=== PATIENT | male | born 1970 | race Caucasian/White ===

== ENCOUNTER 2018-02-09 08:55 | Emergency (ER) | payer BC ==
[2018-02-09] MEDS ORDERED: DIAZEPAM 5 MG TABLET ONE (10:29)
[2018-02-09] MEDS ORDERED: DEXAMETHASONE 10 MG/ML VIAL ONE (10:29)
[2018-02-09] MEDS ORDERED: KETOROLAC 30 MG/ML INJ ONE (10:30)
[2018-02-09] MEDS ORDERED: NA CHLORIDE 0.9% 1,000 ML ONE (10:30)
[2018-02-09] MEDS ORDERED: ONDANSETRON 4 MG/2 ML VIAL ONE (10:30)
[2018-02-09] MEDS ORDERED: MORPHINE 4 MG/ML SYR ONE ×2 (10:30→11:26)
[2018-02-09 10:44] LABS: Absolute Lymphocytes (CBC) 1.6 K/uL (0.7-4.9); Absolute Monocytes 0.5 K/uL (0.1-1.3); Absolute Neutrophil 4.2 K/uL (1.8-8.0); Basophils % 0.4 % (0-1.3); Eosinophils % 4.3 % (0-4.4); Hematocrit 48.3 % (39.6-49.0); Lymphocytes % 24.7 % (15.3-44.8); MCH 29.8 pg (27.0-35.0); MCV 87.2 fL (80-100); MPV 8.9 fL (7.6-11.3); Monocytes % 7.3 % (3.3-12.3); RBC Red Blood Cell Count 5.54 M/uL (4.33-5.43)
[2018-02-09 10:55] LABS: BUN Blood Urea Nitrogen 14 mg/dL (7-18); Bicarbonate 28 mmol/L (21-32); Glucose Level 82 mg/dL (74-106); Potassium 4.2 mmol/L (3.5-5.1); Sodium Level 141 mmol/L (136-145)
[2018-02-09 11:39] LABS: Urine Blood NEGATIVE (NEG); Urine Glucose NEGATIVE (NEG); Urine Protein NEGATIVE (NEG); Urine Specific Gravity >1.030 (1.005-1.030); Urine pH 5.5 (5.0-7.0)
--- NOTE | 2018-02-09 11:52 | RAD REPORT ---
EXAM DESCRIPTION: CTSpine Lumbar Wo Con02/09/2018 11:30 am CLINICAL HISTORY: Back injury with back pain and radiculopathy status post fall from stairs COMPARISON: None TECHNIQUE: Computed axial tomography lumbar spine was obtained with coronal and sagittal reconstruct ion. All CT scans are performed using dose optimization technique as appropriate and may include automated exposure control or mA/KV adjustment according to patient size. FINDINGS: No fracture is seen. No dislocation is noted. A small right paracentral disc herniation L5-S1 is suspected Slight posterior subluxation of L5 on S1 is seen. IMPRESSION: Negative for a lumbar fracture. Small right paracentral disc herniation L5-S1 is suspected If the patient continues to have clinical symptoms to suggest spinal canal pathology then MRI would b e recommended
--- NOTE | 2018-02-09 12:11 | ER ---
Nurse's Notes [facility] Name: Gael Vela Age: 47 yrs Sex: Male : 1970 Arrival Date: 02/09/2018 Time: 08:59 Bed 8 Private MD: Harlan Berger T Diagnosis: Low back pain-paracentral disc herniation L5-S1;Fall (on) (from) other stairs and steps Presentation: 02/09 09:03 Presenting complaint: Patient states: "I tripped and fell down a flight of stairs aa5 yesterday". pt c/o lower back pain. Pt denies head injury, denies LOC. Pt ambulatory with steady gait noted. 09:03 Transition of care: patient was not received from another setting of care. Onset of aa5 symptoms was February 2018. Risk Assessment: Do you want to hurt yourself or someone else? Patient reports no desire to harm self or others. Initial Sepsis Screen: Does the patient meet any 2 criteria? No. Patient's initial sepsis screen is negative. Does the patient have a suspected source of infection? No. Patient's initial sepsis screen is negative. Care prior to arrival: None. 09:03 Method Of Arrival: Ambulatory aa5 09:03 Acuity: RENEA 4 aa5 Historical: - Allergies: 09:05 No Known Allergies; aa5 - PMHx: 09:05 Hypertension; Acid Reflux; Headaches; aa5 - PSHx: 09:05 Cholecystectomy; aa5 - Immunization history:: Adult Immunizations unknown. - Social history:: Smoking status: Patient/guardian denies using tobacco. - Ebola Screening: : No symptoms or risks identified at this time. - Family history:: not pertinent. Screenin:05 Abuse screen: Denies threats or abuse. Nutritional screening: No deficits noted. aa5 Tuberculosis screening: No symptoms or risk factors identified. Fall Risk None identified. Assessment: 09:05 General: Appears uncomfortable, Behavior is calm, cooperative. Pain: Complains of pain aa5 in lumbar area Pain does not radiate. Pain currently is 4 out of 10 on a pain scale. at worst was 10 out of 10 on a pain scale. Quality of pain is described as sharp, Pain began 1 day ago. Is continuous, Alleviated by rest, Aggravated by increased activity, repositioning, Noted to be resistant to movement. Neuro: Level of Consciousness is awake, alert, obeys commands, Oriented to person, place, time, situation. Cardiovascular: Heart tones S1 S2 present Rhythm is regular. Respiratory: Airway is patent Respiratory effort is even, unlabored, Respiratory pattern is regular, symmetrical. GI: No signs and/or symptoms were reported involving the gastrointestinal system. : No signs and/or symptoms were reported regarding the genitourinary system. EENT: No signs and/or symptoms were reported regarding the EENT system. Derm: Skin is pink, warm \\T\\ dry. Musculoskeletal: Range of motion: intact in all extremities. 10:26 Reassessment: Patient and/or family updated on plan of care and expected duration. Pain aa5 level reassessed. Patient is alert, oriented x 3, equal unlabored respirations, skin warm/dry/pink. 11:10 Reassessment: Patient and/or family updated on plan of care and expected duration. Pain aa5 level reassessed. Patient is alert, oriented x 3, equal unlabored respirations, skin warm/dry/pink. Patient states symptoms have not improved. MD notified of pt's unchanged pain level. Pt rates pain a 4/10 on a pain scale and 10/10 with any movement. . 11:22 Reassessment: Patient is alert, oriented x 3, equal unlabored respirations, skin aa5 warm/dry/pink. Pt transported to CT scan . 11:45 Reassessment: Patient and/or family updated on plan of care and expected duration. Pain aa5 level reassessed. Patient is alert, oriented x 3, equal unlabored respirations, skin warm/dry/pink. Patient states feeling better. Patient states symptoms have improved. Pt reports pain 0/10 on a pain scale at this time. Pt reports "it's still hurts when I move but not as bad" . 12:30 Reassessment: Patient is alert, oriented x 3, equal unlabored respirations, skin aa5 warm/dry/pink. Vital Signs: 09:05 BP 120 / 85; Pulse 69; Resp 18 S; Temp 98.2(O); Pulse Ox 97% on R/A; Weight 126.1 kg aa5 (R); Height 6 ft. 4 in. (193.04 cm) (R); Pain 4/10; 10:26 BP 120 / 94; Pulse 74; Resp 16 S; Pulse Ox 96% on R/A; Pain 4/10; aa5 10:53 BP 124 / 85; Pulse 72; Resp 16 S; Pulse Ox 97% on R/A; aa5 11:45 BP 121 / 80; Pulse 72; Resp 16 S; Pulse Ox 96% on R/A; aa5 12:20 BP 120 / 79; Pulse 67; Resp 18 S; Temp 98.0(O); Pulse Ox 96% on R/A; aa5 09:05 Body Mass Index 33.84 (126.10 kg, 193.04 cm) aa5 ED Course: 08:59 Patient arrived in ED. mr 08:59 Harlan Berger MD is Private Physician. mr 09:05 Arm band placed on Patient placed in an exam room, on a stretcher. aa5 09:05 Patient has correct armband on for positive identification. Bed in low position. Side aa5 rails up X 1. Adult w/ patient. 09:07 Marianna Becerra, MERT is Primary Nurse. aa5 09:07 Bryant Deras MD is Attending Physician. matthew 09:09 Triage completed. aa5 10:15 Inserted saline lock: 20 gauge in right antecubital area, using aseptic technique. ag Blood collected. 10:20 Initial lab(s) drawn, by ED staff, sent to lab. Inserted saline lock: 20 gauge in right aa5 antecubital area, using aseptic technique. IV inserted by CHRISTINE Gunderson. 11:29 CT Lumbar Spine Wo Con In Process Unspecified. EDMS 11:29 CT completed. Patient moved to CT via wheelchair. Patient moved back from CT. cw1 12:10 Harlan Breger MD is Referral Physician. matthew 12:10 Pavan Edwards MD is Referral Physician. matthew 12:30 No provider procedures requiring assistance completed. IV discontinued, intact, aa5 bleeding controlled, No redness/swelling at site. Pressure dressing applied. Administered Medications: 10:26 Drug: NS 0.9% 1000 ml Route: IV; Rate: 1 bolus; Site: right antecubital; aa5 11:40 Follow up: IV Status: Completed infusion aa5 10:26 Drug: TORadol 30 mg Route: IVP; Site: right antecubital; aa5 10:35 Follow up: Response: No adverse reaction aa5 10:26 Drug: Zofran 4 mg Route: IVP; Site: right antecubital; aa5 10:35 Follow up: Response: No adverse reaction aa5 10:26 Drug: Decadron - Dexamethasone 10 mg Route: IVP; Site: right antecubital; aa5 10:35 Follow up: Response: No adverse reaction aa5 10:30 Drug: morphine 4 mg Route: IVP; Site: right antecubital; aa5 10:35 Follow up: Response: No adverse reaction aa5 10:30 Drug: Valium 5 mg Route: PO; aa5 11:20 Follow up: Response: No adverse reaction aa5 11:20 Drug: morphine 4 mg Route: IVP; Site: right antecubital; aa5 11:25 Follow up: Response: No adverse reaction aa5 Outcome: 12:10 Discharge ordered by . matthew 12:30 Discharged to home ambulatory, with significant other. aa5 12:30 Condition: improved 12:30 Discharge instructions given to patient, significant other, Instructed on discharge instructions, follow up and referral plans. medication usage, Demonstrated understanding of instructions, follow-up care, medications, Prescriptions given X 4. 12:35 Patient left the ED. aa5 Signatures: Dispatcher [employer] EDBryant Christensen MD MD cha Rivera, Maria mr Calderon, Audri, RN RN [email or web address] Isabel Da Silva cwAmanda Foster
--- NOTE | 2018-02-09 12:11 | EDPHYS ---
Physician Documentation [facility] Name: Gael Vela Age: 47 yrs Sex: Male : 1970 Arrival Date: 02/09/2018 Time: 08:59 Bed 8 Private MD: Harlan Berger T ED Physician Bryant Deras HPI: 02/09 10:08 This 47 yrs old Male presents to ER via Ambulatory with complaints of Back matthew Pain. 10:08 The patient presents with pain that is acute, and decreased range of motion, and an matthew injury. The symptoms are located in the low back, lumbar area. Onset: The symptoms/episode began/occurred last night. The pain does not radiate. Associated signs and symptoms: The patient has no apparent associated signs or symptoms. The problem was sustained during a fall, fall 13 steps. Modifying factors: The patient symptoms are alleviated by nothing, remaining still, specific position, the patient symptoms are aggravated by any movement, bending. Severity of symptoms: At their worst the symptoms were moderate, in the emergency department the symptoms are unchanged. The patient has not experienced similar symptoms in the past. Historical: - Allergies: 09:05 No Known Allergies; aa5 - PMHx: 09:05 Hypertension; Acid Reflux; Headaches; aa5 - PSHx: 09:05 Cholecystectomy; aa5 - Immunization history:: Adult Immunizations unknown. - Social history:: Smoking status: Patient/guardian denies using tobacco. - Ebola Screening: : No symptoms or risks identified at this time. - Family history:: not pertinent. ROS: 10:08 Constitutional: Negative for fever, chills, and weight loss, Eyes: Negative for injury, matthew pain, redness, and discharge, ENT: Negative for injury, pain, and discharge, Neck: Negative for injury, pain, and swelling, Cardiovascular: Negative for chest pain, palpitations, and edema, Respiratory: Negative for shortness of breath, cough, wheezing, and pleuritic chest pain, Abdomen/GI: Negative for abdominal pain, nausea, vomiting, diarrhea, and constipation, : Negative for injury, bleeding, discharge, and swelling, MS/Extremity: Negative for injury and deformity, Skin: Negative for injury, rash, and discoloration, Neuro: Negative for headache, weakness, numbness, tingling, and seizure, Psych: Negative for depression, anxiety, suicide ideation, homicidal ideation, and hallucinations, Allergy/Immunology: Negative for hives, rash, and allergies, Endocrine: Negative for neck swelling, polydipsia, polyuria, polyphagia, and marked weight changes, Hematologic/Lymphatic: Negative for swollen nodes, abnormal bleeding, and unusual bruising. 10:08 Back: Positive for decreased range of motion, pain at rest, pain with movement, of the lumbar area and sacrum. Exam: 10:08 Constitutional: This is a well developed, well nourished patient who is awake, alert, matthew and in no acute distress. Head/Face: Normocephalic, atraumatic. Eyes: Pupils equal round and reactive to light, extra-ocular motions intact. Lids and lashes normal. Conjunctiva and sclera are non-icteric and not injected. Cornea within normal limits. Periorbital areas with no swelling, redness, or edema. ENT: Nares patent. No nasal discharge, no septal abnormalities noted. Tympanic membranes are normal and external auditory canals are clear. Oropharynx with no redness, swelling, or masses, exudates, or evidence of obstruction, uvula midline. Mucous membranes moist. Neck: Trachea midline, no thyromegaly or masses palpated, and no cervical lymphadenopathy. Supple, full range of motion without nuchal rigidity, or vertebral point tenderness. No Meningismus. Chest/axilla: Normal chest wall appearance and motion. Nontender with no deformity. No lesions are appreciated. Cardiovascular: Regular rate and rhythm with a normal S1 and S2. No gallops, murmurs, or rubs. Normal PMI, no JVD. No pulse deficits. Respiratory: Lungs have equal breath sounds bilaterally, clear to auscultation and percussion. No rales, rhonchi or wheezes noted. No increased work of breathing, no retractions or nasal flaring. Abdomen/GI: Soft, non-tender, with normal bowel sounds. No distension or tympany. No guarding or rebound. No evidence of tenderness throughout. Male : Normal genitalia with no discharge or lesions. Skin: Warm, dry with normal turgor. Normal color with no rashes, no lesions, and no evidence of cellulitis. MS/ Extremity: Pulses equal, no cyanosis. Neurovascular intact. Full, normal range of motion. Neuro: Awake and alert, GCS 15, oriented to person, place, time, and situation. Cranial nerves II-XII grossly intact. Motor strength 5/5 in all extremities. Sensory grossly intact. Cerebellar exam normal. Normal gait. Psych: Awake, alert, with orientation to person, place and time. Behavior, mood, and affect are within normal limits. 10:08 Back: pain, that is moderate, ROM is painful, normal spinal alignment noted, CVA tenderness, is absent, vertebral tenderness, is appreciated at L1, L2, L3, L4, L5 and sacrum, muscle spasm, is appreciated in the left low back, left mid back, right mid back and right low back. Vital Signs: 09:05 BP 120 / 85; Pulse 69; Resp 18 S; Temp 98.2(O); Pulse Ox 97% on R/A; Weight 126.1 kg aa5 (R); Height 6 ft. 4 in. (193.04 cm) (R); Pain 4/10; 10:26 BP 120 / 94; Pulse 74; Resp 16 S; Pulse Ox 96% on R/A; Pain 4/10; aa5 10:53 BP 124 / 85; Pulse 72; Resp 16 S; Pulse Ox 97% on R/A; aa5 11:45 BP 121 / 80; Pulse 72; Resp 16 S; Pulse Ox 96% on R/A; aa5 12:20 BP 120 / 79; Pulse 67; Resp 18 S; Temp 98.0(O); Pulse Ox 96% on R/A; aa5 09:05 Body Mass Index 33.84 (126.10 kg, 193.04 cm) aa5 MDM: 09:07 Patient medically screened. [facility] 10:12 Data reviewed: vital signs, nurses notes, radiologic studies, CT scan. [facility] 02/09 10:08 Order name: CBC with Diff; Complete Time: 11:11 [facility] 02/09 10:08 Order name: Chem 7; Complete Time: 11:11 [facility] 02/09 11:11 Order name: CT Lumbar Spine Wo Con [facility] 02/09 11:19 Order name: Urine Dipstick--Ancillary (enter results) 02/09 10:08 Order name: Urine Dipstick-Ancillary (obtain specimen); Complete Time: 10:46 [facility] Administered Medications: 10:26 Drug: NS 0.9% 1000 ml Route: IV; Rate: 1 bolus; Site: right antecubital; aa5 11:40 Follow up: IV Status: Completed infusion aa5 10:26 Drug: TORadol 30 mg Route: IVP; Site: right antecubital; aa5 10:35 Follow up: Response: No adverse reaction aa5 10:26 Drug: Zofran 4 mg Route: IVP; Site: right antecubital; aa5 10:35 Follow up: Response: No adverse reaction aa5 10:26 Drug: Decadron - Dexamethasone 10 mg Route: IVP; Site: right antecubital; aa5 10:35 Follow up: Response: No adverse reaction aa5 10:30 Drug: morphine 4 mg Route: IVP; Site: right antecubital; aa5 10:35 Follow up: Response: No adverse reaction aa5 10:30 Drug: Valium 5 mg Route: PO; aa5 11:20 Follow up: Response: No adverse reaction aa5 11:20 Drug: morphine 4 mg Route: IVP; Site: right antecubital; aa5 11:25 Follow up: Response: No adverse reaction aa5 Disposition: 02/09/18 12:10 Discharged to Home. Impression: Low back pain - paracentral disc herniation L5-S1, Fall (on) (from) other stairs and steps. - Condition is Stable. - Discharge Instructions: Back Pain, Adult, Musculoskeletal Pain, Back Injury Prevention, [id number], Back Pain, Adult, [id number], Back Exercises, [id number]-il-Ftgl. - Prescriptions for Robaxin- 750 750 mg Oral tablet - take 2 tablet by ORAL route 3 times per day; 28 tablet. Ibuprofen 600 mg Oral Tablet - take 1 tablet by ORAL route 3 times per day As needed take with food; 30 tablet. Tylenol- Codeine #3 300-30 mg Oral Tablet - take 2 tablet by ORAL route every 6 hours As needed; 30 tablet. Medrol (Lio) 4 mg Oral Tablets, Dose Pack - take 1 tablet by ORAL route as directed - follow package instructions; 1 packet. - Work release form, Medication Reconciliation Form, Thank You Letter, Antibiotic Education, Prescription Opioid Use form. - Follow up: Harlan Berger; When: 2 - 3 days; Reason: Recheck today's complaints, Continuance of care, Re-evaluation by your physician. Follow up: Pavan Edwards; When: 2 - 3 days; Reason: Recheck today's complaints, Re-evaluation by your physician. - Problem is new. - Symptoms have improved. Signatures: Dispatcher [employer] EDBryant Christensen MD MD cha Calderon, Audri, RN RN aa5 Corrections: (The following items were deleted from the chart) 12:35 12:10 02/09/2018 12:10 Discharged to Home. Impression: Low back pain - paracentral disc aa5 herniation L5-S1; Fall (on) (from) other stairs and steps. Condition is Stable. Discharge Instructions: Back Pain, Adult, Musculoskeletal Pain, Back Injury Prevention, [id number], Back Pain, Adult, Mwpq-lf-Dgsc, Back Exercises, Rldb-aa-Miee. Prescriptions for Robaxin-750 750 mg Oral tablet - take 2 tablet by ORAL route 3 times per day; 28 tablet, Ibuprofen 600 mg Oral Tablet - take 1 tablet by ORAL route 3 times per day As needed take with food; 30 tablet, Tylenol-Codeine #3 300-30 mg Oral Tablet - take 2 tablet by ORAL route every 6 hours As needed; 30 tablet, Medrol (Lio) 4 mg Oral Tablets, Dose Pack - take 1 tablet by ORAL route as directed - follow package instructions; 1 packet. and Forms are Medication Reconciliation Form, Thank You Letter, Antibiotic Education, Prescription Opioid Use. Follow up: Harlan Berger; When: 2 - 3 days; Reason: Recheck today's complaints, Continuance of care, Re-evaluation by your physician. Follow up: Pavan Edwards; When: 2 - 3 days; Reason: Recheck today's complaints, Re-evaluation by your physician. Problem is new. Symptoms have improved. matthew
[2018-02-09 12:41] VITALS: TEMP 98.2
[2018-02-09 12:44] VITALS: BP 124/85; O2SAT 97
== END 2018-02-09 12:35 | disposition home or self-care (01) ==
LOC: ER 08:55
DX: M51.27 Other intervertebral disc displacement, lumbosacral region (principal); W10.9XXA Fall (on) (from) unspecified stairs and steps, initial encounter; Y93.9 Activity, unspecified; Y92.9 Unspecified place or not applicable; I10 Essential (primary) hypertension; K21.9 Gastro-esophageal reflux disease without esophagitis
CPT/HCPCS: 36415; 72131; 80048; 81003; 85025; 96361; 96374; 96375; 99284; J1100; J2405; J7030

== ENCOUNTER 2018-09-21 17:25 | Emergency (ER) | payer BC ==
--- NOTE | 2018-09-21 18:12 | RAD REPORT ---
EXAM DESCRIPTION: RAD - Wrist Left 3 View - 09/21/2018 6:00 pm CLINICAL HISTORY: Left wrist pain status post injury FINDINGS: No fracture or dislocation is seen. No bone or joint abnormality displayed
--- NOTE | 2018-09-21 20:01 | EDPHYS ---
Physician Documentation [facility] Name: Gael Vela Age: 48 yrs Sex: Male : 1970 Arrival Date: 09/21/2018 Time: 17:25 Bed 19 Private MD: ED Physician Froilan Kendrick HPI: 09/22 03:26 This 48 yrs old Male presents to ER via Ambulatory with complaints of Arm snw Injury. 03:26 The patient or guardian complains of contusion, pain, that is acute. The complaints snw affect the right wrist. Context: The problem was sustained at home, resulted from a crush injury, by a heavy object. Onset: The symptoms/episode began/occurred suddenly, and became persistent. Treatment prior to arrival includes: no previous treatment. Associated signs and symptoms: The patient has no apparent associated signs or symptoms. Severity of symptoms: At their worst the symptoms were mild. The patient has not experienced similar symptoms in the past. It is unknown whether or not the patient has recently seen a physician. Historical: - Allergies: 09/21 17:45 No Known Allergies; sg - PMHx: 17:41 acid reflux; borderline HTN; Headaches; Hypertension; sg - PSHx: 17:41 Cholecystectomy; sg - Immunization history:: Adult Immunizations not up to date. - Social history:: Smoking status: Patient/guardian denies using tobacco. - Ebola Screening: : Patient negative for fever greater than or equal to 101.5 degrees Fahrenheit, and additional compatible Ebola Virus Disease symptoms Patient denies exposure to infectious person Patient denies travel to an Ebola-affected area in the 21 days before illness onset No symptoms or risks identified at this time. ROS: 09/22 03:23 Constitutional: Negative for fever, chills, and weight loss, Eyes: Negative for injury, snw pain, redness, and discharge, ENT: Negative for injury, pain, and discharge, Neck: Negative for injury, pain, and swelling, Cardiovascular: Negative for chest pain, palpitations, and edema, Respiratory: Negative for shortness of breath, cough, wheezing, and pleuritic chest pain, Abdomen/GI: Negative for abdominal pain, nausea, vomiting, diarrhea, and constipation, Back: Negative for injury and pain, : Negative for injury, bleeding, discharge, and swelling, Skin: Negative for injury, rash, and discoloration, Neuro: Negative for headache, weakness, numbness, tingling, and seizure. MS/extremity: Positive for injury or acute deformity, contusion, pain, swelling, of the left wrist. Exam: 03:04 Constitutional: This is a well developed, well nourished patient who is awake, alert, snw and in no acute distress. Head/Face: Normocephalic, atraumatic. Eyes: Pupils equal round and reactive to light, extra-ocular motions intact. Lids and lashes normal. Conjunctiva and sclera are non-icteric and not injected. Cornea within normal limits. Periorbital areas with no swelling, redness, or edema. ENT: Nares patent. No nasal discharge, no septal abnormalities noted. Tympanic membranes are normal and external auditory canals are clear. Oropharynx with no redness, swelling, or masses, exudates, or evidence of obstruction, uvula midline. Mucous membranes moist. Neck: Trachea midline, no thyromegaly or masses palpated, and no cervical lymphadenopathy. Supple, full range of motion without nuchal rigidity, or vertebral point tenderness. No Meningismus. Chest/axilla: Normal chest wall appearance and motion. Nontender with no deformity. No lesions are appreciated. Cardiovascular: Regular rate and rhythm with a normal S1 and S2. No gallops, murmurs, or rubs. Normal PMI, no JVD. No pulse deficits. Respiratory: Lungs have equal breath sounds bilaterally, clear to auscultation and percussion. No rales, rhonchi or wheezes noted. No increased work of breathing, no retractions or nasal flaring. Abdomen/GI: Soft, non-tender, with normal bowel sounds. No distension or tympany. No guarding or rebound. No evidence of tenderness throughout. Back: No spinal tenderness. No costovertebral tenderness. Full range of motion. 03:24 Skin: Warm, dry with normal turgor. Normal color with no rashes, no lesions, and no snw evidence of cellulitis. Neuro: Awake and alert, GCS 15, oriented to person, place, time, and situation. Cranial nerves II-XII grossly intact. Motor strength 5/5 in all extremities. Sensory grossly intact. Cerebellar exam normal. Normal gait. Psych: Awake, alert, with orientation to person, place and time. Behavior, mood, and affect are within normal limits. 03:24 Musculoskeletal/extremity: Extremities: grossly normal except: noted in the left forearm: contusion, tenderness, Circulation is intact in all extremities. Sensation intact. Vital Signs: 09/21 17:45 BP 110 / 85; Pulse 87; Resp 18; Temp 98.2; Pulse Ox 100% on R/A; Pain 10/10; sg 19:19 BP 115 / 81; Pulse 80; Resp 19; Pulse Ox 99% on R/A; Pain 10/10; ed1 MDM: 19:21 Patient medically screened. snw 09/22 03:23 Data reviewed: vital signs, nurses notes. Data interpreted: Pulse oximetry: on room air snw is 99 %. Interpretation: normal. Counseling: I had a detailed discussion with the patient and/or guardian regarding: the historical points, exam findings, and any diagnostic results supporting the discharge/admit diagnosis, radiology results, the need for outpatient follow up, to return to the emergency department if symptoms worsen or persist or if there are any questions or concerns that arise at home. Response to treatment: the patient's symptoms have markedly improved after treatment. Special discussion: Based on the history and exam findings, there is no indication for further emergent testing or inpatient evaluation. I discussed with the patient/guardian the need to see the orthopedic surgeon for further evaluation of the symptoms. 09/21 17:48 Order name: XRAY Wrist LEFT 3 view; Complete Time: 18:28 sg 09/21 19:54 Order name: Volar Wrist Splint; Complete Time: 20:00 ed1 Administered Medications: 09/21 20:10 Not Given (Patient Refused): [place] 5 mg-325 mg 1 tabs PO once ed1 20:11 Drug: Motrin 400 mg Route: PO; ed1 20:11 Follow up: Response: Medication administered at discharge. ed1 Disposition: 09/21/18 20:00 Discharged to Home. Impression: Sprain of carpal joint of left wrist. - Condition is Stable. - Discharge Instructions: RICE for Routine Care of Injuries, Wrist Splint, Wrist Sprain. - Prescriptions for Diclofenac Sodium 75 mg Oral Tablet Sustained Release - take 1 tablet by ORAL route 2 times per day; 30 tablet. - Work release form, Medication Reconciliation Form, Thank You Letter, Antibiotic Education, Prescription Opioid Use form. - Follow up: Emergency Department; When: As needed; Reason: Worsening of condition. Follow up: Private Physician; When: 2 - 3 days; Reason: Recheck today's complaints, Continuance of care, Re-evaluation by your physician. Addendum: 09/24/2018 19:16 Co-signature as Attending Physician, Froilan Kendrick MD. r n Signatures: Dispatcher [employer] EDMS Bradford Lucero RN RN sg Cookie Chan, WHEEL TRUING MACHINE TENDER-C WHEEL TRUING MACHINE TENDER-Csnw Froilan Kendrick MD MD rn [facility] Hospital[facility] RN RN ed1 Corrections: (The following items were deleted from the chart) 09/21 20:13 20:00 09/21/2018 20:00 Discharged to Home. Impression: Sprain of carpal joint of left ed1 wrist. Condition is Stable. Forms are Medication Reconciliation Form, Thank You Letter, Antibiotic Education, Prescription Opioid Use. Follow up: Emergency Department; When: As needed; Reason: Worsening of condition. Follow up: Private Physician; When: 2 - 3 days; Reason: Recheck today's complaints, Continuance of care, Re-evaluation by your physician. snw
--- NOTE | 2018-09-21 20:01 | ER ---
Nurse's Notes [facility] Name: Gael Vela Age: 48 yrs Sex: Male : 1970 Arrival Date: 09/21/2018 Time: 17:25 Bed 19 Private MD: Diagnosis: Sprain of carpal joint of left wrist Presentation: 09/21 17:45 Presenting complaint: Presenting complaint: Patient states: was hitting golf balls in sg the yard yesterday, reports felt something click in the left wrist, painful now, unable to grasp and hold onto an object for very long before the pain causes him to drop the object. 17:46 Transition of care: patient was not received from another setting of care. Onset of sg symptoms was September 21, 2018. Risk Assessment: Do you want to hurt yourself or someone else? Patient reports no desire to harm self or others. Initial Sepsis Screen: Does the patient meet any 2 criteria? No. Patient's initial sepsis screen is negative. Does the patient have a suspected source of infection? No. Patient's initial sepsis screen is negative. Care prior to arrival: None. 17:46 Method Of Arrival: Ambulatory 17:46 Acuity: RENEA 4 sg Historical: - Allergies: 17:45 No Known Allergies; sg - PMHx: 17:41 acid reflux; borderline HTN; Headaches; Hypertension; sg - PSHx: 17:41 Cholecystectomy; sg - Immunization history:: Adult Immunizations not up to date. - Social history:: Smoking status: Patient/guardian denies using tobacco. - Ebola Screening: : Patient negative for fever greater than or equal to 101.5 degrees Fahrenheit, and additional compatible Ebola Virus Disease symptoms Patient denies exposure to infectious person Patient denies travel to an Ebola-affected area in the 21 days before illness onset No symptoms or risks identified at this time. Screenin:19 Abuse screen: Denies threats or abuse. Denies injuries from another. Nutritional ed1 screening: No deficits noted. Tuberculosis screening: No symptoms or risk factors identified. Fall Risk None identified. Assessment: 19:19 General: Appears in no apparent distress. Behavior is calm, cooperative. Pain: ed1 Complains of pain in left wrist Pain does not radiate. Pain currently is 10 out of 10 on a pain scale. Quality of pain is described as aching, Pain began 1 day ago. Is continuous, Aggravated by exercise, increased activity. Neuro: Level of Consciousness is awake, alert, obeys commands, Oriented to person, place, time, situation. Cardiovascular: Denies chest pain, Heart tones S1 S2 present. Respiratory: Airway is patent Respiratory effort is even, unlabored, Respiratory pattern is regular, symmetrical, Breath sounds are clear bilaterally. GI: No signs and/or symptoms were reported involving the gastrointestinal system. : No signs and/or symptoms were reported regarding the genitourinary system. EENT: No signs and/or symptoms were reported regarding the EENT system. Derm: Skin is intact, is healthy with good turgor, Skin is dry, Skin is normal, Skin temperature is warm. Musculoskeletal: Circulation, motion, and sensation intact. Capillary refill < 3 seconds, in bilateral fingers. Range of motion: limited in left wrist. 20:12 Reassessment: Patient appears in no apparent distress at this time. No changes from ed1 previously documented assessment. Patient and/or family updated on plan of care and expected duration. Pain level reassessed. Patient is alert, oriented x 3, equal unlabored respirations, skin warm/dry/pink. Vital Signs: 17:45 BP 110 / 85; Pulse 87; Resp 18; Temp 98.2; Pulse Ox 100% on R/A; Pain 10/10; sg 19:19 BP 115 / 81; Pulse 80; Resp 19; Pulse Ox 99% on R/A; Pain 10/10; ed1 ED Course: 17:25 Patient arrived in ED. as 17:41 Arm band placed on. sg 17:47 Triage completed. sg 17:58 XRAY Wrist LEFT 3 view In Process Unspecified. EDMS 18:03 Cookie Chan FNP-C is PHCP. snw 18:03 Froilan Kendrick MD is Attending Physician. snw 19:12 Nohelia Wren, MERT is Primary Nurse. ed1 19:19 Patient has correct armband on for positive identification. Bed in low position. Call ed1 light in reach. Adult w/ patient. 20:02 Velcro wrist splint applied to left wrist. ed1 20:12 No provider procedures requiring assistance completed. Patient did not have IV access ed1 during this emergency room visit. Administered Medications: 20:10 Not Given (Patient Refused): [place] 5 mg-325 mg 1 tabs PO once ed1 20:11 Drug: Motrin 400 mg Route: PO; ed1 20:11 Follow up: Response: Medication administered at discharge. ed1 Outcome: 20:00 Discharge ordered by . snw 20:12 Discharged to home ambulatory, with significant other. ed1 20:12 Condition: good 20:12 Discharge instructions given to patient, Instructed on discharge instructions, follow up and referral plans. medication usage, Demonstrated understanding of instructions, follow-up care, medications, Prescriptions given X 1. 20:13 Patient left the ED. ed1 Signatures: Dispatcher [employer] EDMS Bradford Lucero RN RN sg Cookie Chan, MEDICAL LOGISTICS SPECIALIST-C MEDICAL LOGISTICS SPECIALIST-Idania Shoemaker Erika RN RN ed1 Corrections: (The following items were deleted from the chart) 17:47 17:45 Presenting complaint: sg sg
[2018-09-21] MEDS ORDERED: HYDROCODONE/APAP 5/325 MG TAB ONE (20:18)
[2018-09-21] MEDS ORDERED: IBUPROFEN 400 MG TAB ONE (20:18)
[2018-09-21 20:25] VITALS: TEMP 98.2
[2018-09-21 20:27] VITALS: BP 115/81; O2SAT 99
== END 2018-09-21 20:13 | disposition home or self-care (01) ==
LOC: ER 17:25
DX: S63.512A Sprain of carpal joint of left wrist, initial encounter (principal); I10 Essential (primary) hypertension; X58.XXXA Exposure to other specified factors, initial encounter; Y93.9 Activity, unspecified; Y92.009 Unspecified place in unspecified non-institutional (private) residence as the place of occurrence of the external cause
CPT/HCPCS: 99284

== ENCOUNTER 2019-07-27 07:04 | Observation (INO) | payer BC ==
[2019-07-27 07:43] LABS: Absolute Lymphocytes (CBC) 1.1 K/uL (0.7-4.9); Basophils % 0.5 % (0-1.3); Lymphocytes % 19.9 % (15.3-44.8); MPV 8.5 fL (7.6-11.3); RBC Red Blood Cell Count 5.73 M/uL (4.33-5.43)
[2019-07-27 07:45] LABS: Protime INR 1.09
--- NOTE | 2019-07-27 07:48 | ER ---
Nurse's Notes [facility] Name: Gael Vela Age: 49 yrs Sex: Male : 1970 Arrival Date: 07/27/2019 Time: 07:07 Bed 2 Private MD: Diagnosis: Chest pain, unspecified;Essential (primary) hypertension;Weakness Presentation: 07/27 07:09 Presenting complaint: Patient states: High blood pressure since yesterday with any ss activity. Chest pain x 2 weeks when coughing, back pain "for a while" and decreased hearing with bloody drainage to R ear since this morning. states, "He also seems to be speaking slower than usual.". Transition of care: patient was not received from another setting of care. Onset of symptoms is unknown. Risk Assessment: Do you want to hurt yourself or someone else? Patient reports no desire to harm self or others. Initial Sepsis Screen: Does the patient meet any 2 criteria? No. Patient's initial sepsis screen is negative. Does the patient have a suspected source of infection? No. Patient's initial sepsis screen is negative. Care prior to arrival: None. 07:09 Method Of Arrival: Ambulatory ss 07:09 Acuity: RENEA 3 ss Historical: - Allergies: 07:27 No Known Allergies; ss - Home Meds: 07:27 Coreg 3.125 mg Oral tab 1 tab 2 times per day [Active]; ss - PMHx: 07:27 acid reflux; borderline HTN; Headaches; Hypertension; ss - PSHx: 07:27 Cholecystectomy; ss - Immunization history:: Adult Immunizations up to date. - Social history:: Smoking status: Patient reports use of chewing tobacco. - Ebola Screening: : Patient denies exposure to infectious person Patient denies travel to an Ebola-affected area in the 21 days before illness onset. - Family history:: not pertinent. Screenin:34 Abuse screen: Denies threats or abuse. Denies injuries from another. Nutritional sg screening: No deficits noted. Tuberculosis screening: No symptoms or risk factors identified. Never had TB. Fall Risk None identified. Assessment: 07:20 General: Appears in no apparent distress. well groomed, well developed, well nourished, sg Behavior is calm, cooperative, appropriate for age. Pain: Complains of pain in chest Quality of pain is described as pressure, Is episodic, lasting a few minutes. Neuro: Level of Consciousness is awake, alert, obeys commands, Oriented to person, place, time, situation, [employer] are equal bilaterally Speech is normal, Facial symmetry appears normal. Cardiovascular: Capillary refill is brisk in bilateral fingers Patient's skin is warm and dry. Chest pain is described as mild, is located in anterior chest wall. Respiratory: Airway is patent Respiratory effort is even, unlabored, Respiratory pattern is regular, symmetrical. GI: No signs and/or symptoms were reported involving the gastrointestinal system. : No signs and/or symptoms were reported regarding the genitourinary system. EENT: No signs and/or symptoms were reported regarding the EENT system. Derm: Skin is pink, warm \\T\\ dry. Musculoskeletal: Circulation, motion, and sensation intact. Range of motion: intact in all extremities, Swelling absent. 07:28 Reassessment: Pt reports that chest pressure occurs/ worsens when he drinks coffee and ss chews tobacco. 08:20 Reassessment: Patient appears in no apparent distress at this time. Patient and/or sg family updated on plan of care and expected duration. Pain level reassessed. Patient is alert, oriented x 3, equal unlabored respirations, skin warm/dry/pink. pt family at bedside. 08:55 Reassessment: Patient appears in no apparent distress at this time. Patient and/or sg family updated on plan of care and expected duration. Pain level reassessed. Patient is alert, oriented x 3, equal unlabored respirations, skin warm/dry/pink. pt denies pain at this time, reports chest pressure that " comes and goes". 11:50 Reassessment: Attempted to call report. sv Vital Signs: 07:27 BP 129 / 91; Pulse 81; Resp 16; Pulse Ox 98% on R/A; Weight 126.1 kg; Height 6 ft. 4 ss in. (193.04 cm); Pain 2/10; 08:21 BP 123 / 96; Pulse 78; Resp 18; Pulse Ox 100% on R/A; sg 09:00 BP 124 / 92; Pulse 70; Resp 19; Pulse Ox 98% ; sv 10:00 BP 132 / 92; Pulse 83; Resp 20; Pulse Ox 97% ; sv 10:34 BP 132 / 95; Pulse 74; Resp 16; Pulse Ox 96% ; sv 10:58 BP 118 / 80; Pulse 74; Resp 19; Pulse Ox 96% ; sv 07:27 Body Mass Index 33.84 (126.10 kg, 193.04 cm) ED Course: 07:07 Patient arrived in ED. cl3 07:11 Bryant Deras MD is Attending Physician. matthew 07:26 Triage completed. ss 07:27 Arm band placed on right wrist. ss 07:32 EKG done, by ED staff, reviewed by Bryant Deras MD. sv 07:33 Patient has correct armband on for positive identification. Placed in gown. Bed in low sv position. Call light in reach. Adult w/ patient. surveillance system monitor on. Pulse ox on. NIBP on. Door closed. Head of bed elevated. 07:41 Pavan Kilpatrick, MERT is Primary Nurse. jb4 07:46 Dimitry Che DO is Hospitalizing Provider. matthew 07:56 Bradford Lucero RN is Primary Nurse. sv 07:56 X-ray(s) taken. sv 07:59 XRAY Chest (1 view) In Process Unspecified. EDMS 08:46 CT Head C Spine In Process Unspecified. EDMS 08:46 CT Aorta for Dissection In Process Unspecified. EDMS 11:13 Awaiting bed assignment. sv 12:03 No provider procedures requiring assistance completed. Patient admitted, IV remains in sg place. intact, No redness/swelling at site. Administered Medications: 07:35 Drug: NS 0.9% 1000 ml Route: IV; Rate: 75 ml/hr; Site: right antecubital; sg 12:00 Follow up: Response: No adverse reaction; IV Status: Infusion continued upon admission sg 09:28 Drug: Aspirin Chewable Tablet 324 mg Route: PO; sg 09:45 Follow up: Response: No adverse reaction sg Outcome: 07:47 Decision to Hospitalize by Provider. matthew 12:02 Admitted to Tele accompanied by tech, family with patient, via wheelchair, room 209, sg with chart, Report called to MERT Beard 12:02 Condition: good 12:02 Instructed on the need for admit, safety practices, Demonstrated understanding of instructions, follow-up care. 12:53 Patient left the ED. Signatures: Dispatcher [employer] Shruthi Roth RN RN Bradford Lucero RN RN sg Anderson, Corey, MD MD cha [facility], Karina, MERT RN ss Pavan Kilpatrick RN RN jb4 Gaurang Harding cl3 Corrections: (The following items were deleted from the chart) 07:30 Initial lab(s) drawn, by me, sent to lab. jb4 4 07:30 Inserted saline lock: 20 gauge in right antecubital area, using aseptic jb4 technique. Blood collected. jb4 07:30 Patient maintains SpO2 saturation greater than 95% on room air. jb4 4 : 07:40 NS 0.9% 1000 ml IV at 75 ml/hr in right antecubital jb4 jb4 10:34 09:00 BP 132 / 92; Pulse 83bpm; Resp 20bpm; Pulse Ox 97%; sv sv
--- NOTE | 2019-07-27 07:48 | EDPHYS ---
Physician Documentation [facility] Name: Gael Vela Age: 49 yrs Sex: Male : 1970 Arrival Date: 07/27/2019 Time: 07:07 Bed 2 Private MD: ED Physician Bryant Deras HPI: 07/27 07:24 This 49 yrs old Male presents to ER via Unassigned with complaints of Chest matthew Pain, High Blood Pressure. 07:24 The patient or guardian reports chest pain that is located primarily in the substernal matthew area. Onset: 1 day(s) ago. The pain does not radiate. Associated signs and symptoms: The patient has no apparent associated signs or symptoms. The chest pain is described as a pressure. Modifying factors: The symptoms are alleviated by nothing. the symptoms are aggravated by nothing. Severity of pain: At its worst the pain was moderate in the emergency department the pain is unchanged. The patient has experienced similar episodes in the past, multiple times. Historical: - Allergies: 07:27 No Known Allergies; ss - Home Meds: 07:27 Coreg 3.125 mg Oral tab 1 tab 2 times per day [Active]; ss - PMHx: 07:27 acid reflux; borderline HTN; Headaches; Hypertension; ss - PSHx: 07:27 Cholecystectomy; ss - Immunization history:: Adult Immunizations up to date. - Social history:: Smoking status: Patient reports use of chewing tobacco. - Ebola Screening: : Patient denies exposure to infectious person Patient denies travel to an Ebola-affected area in the 21 days before illness onset. - Family history:: not pertinent. ROS: 07:24 Constitutional: Negative for fever, chills, and weight loss, Eyes: Negative for injury, matthew pain, redness, and discharge, ENT: Negative for injury, pain, and discharge, Neck: Negative for injury, pain, and swelling, Respiratory: Negative for shortness of breath, cough, wheezing, and pleuritic chest pain, Abdomen/GI: Negative for abdominal pain, nausea, vomiting, diarrhea, and constipation, Back: Negative for injury and pain, : Negative for injury, bleeding, discharge, and swelling, MS/Extremity: Negative for injury and deformity, Skin: Negative for injury, rash, and discoloration, Neuro: Negative for headache, weakness, numbness, tingling, and seizure, Psych: Negative for depression, anxiety, suicide ideation, homicidal ideation, and hallucinations, Allergy/Immunology: Negative for hives, rash, and allergies, Endocrine: Negative for neck swelling, polydipsia, polyuria, polyphagia, and marked weight changes, Hematologic/Lymphatic: Negative for swollen nodes, abnormal bleeding, and unusual bruising. 07:24 Cardiovascular: Positive for chest pain. Exam: 07:24 Constitutional: This is a well developed, well nourished patient who is awake, alert, matthew and in no acute distress. Head/Face: Normocephalic, atraumatic. Eyes: Pupils equal round and reactive to light, extra-ocular motions intact. Lids and lashes normal. Conjunctiva and sclera are non-icteric and not injected. Cornea within normal limits. Periorbital areas with no swelling, redness, or edema. ENT: Nares patent. No nasal discharge, no septal abnormalities noted. Tympanic membranes are normal and external auditory canals are clear. Oropharynx with no redness, swelling, or masses, exudates, or evidence of obstruction, uvula midline. Mucous membranes moist. Neck: Trachea midline, no thyromegaly or masses palpated, and no cervical lymphadenopathy. Supple, full range of motion without nuchal rigidity, or vertebral point tenderness. No Meningismus. Chest/axilla: Normal chest wall appearance and motion. Nontender with no deformity. No lesions are appreciated. Cardiovascular: Regular rate and rhythm with a normal S1 and S2. No gallops, murmurs, or rubs. Normal PMI, no JVD. No pulse deficits. Respiratory: Lungs have equal breath sounds bilaterally, clear to auscultation and percussion. No rales, rhonchi or wheezes noted. No increased work of breathing, no retractions or nasal flaring. Abdomen/GI: Soft, non-tender, with normal bowel sounds. No distension or tympany. No guarding or rebound. No evidence of tenderness throughout. Back: No spinal tenderness. No costovertebral tenderness. Full range of motion. Skin: Warm, dry with normal turgor. Normal color with no rashes, no lesions, and no evidence of cellulitis. MS/ Extremity: Pulses equal, no cyanosis. Neurovascular intact. Full, normal range of motion. Neuro: Awake and alert, GCS 15, oriented to person, place, time, and situation. Cranial nerves II-XII grossly intact. Motor strength 5/5 in all extremities. Sensory grossly intact. Cerebellar exam normal. Normal gait. Psych: Awake, alert, with orientation to person, place and time. Behavior, mood, and affect are within normal limits. Vital Signs: 07:27 BP 129 / 91; Pulse 81; Resp 16; Pulse Ox 98% on R/A; Weight 126.1 kg; Height 6 ft. 4 ss in. (193.04 cm); Pain 2/10; 08:21 BP 123 / 96; Pulse 78; Resp 18; Pulse Ox 100% on R/A; sg 09:00 BP 124 / 92; Pulse 70; Resp 19; Pulse Ox 98% ; sv 10:00 BP 132 / 92; Pulse 83; Resp 20; Pulse Ox 97% ; sv 10:34 BP 132 / 95; Pulse 74; Resp 16; Pulse Ox 96% ; sv 10:58 BP 118 / 80; Pulse 74; Resp 19; Pulse Ox 96% ; sv 07:27 Body Mass Index 33.84 (126.10 kg, 193.04 cm) ss MDM: 07:11 Patient medically screened. [facility] 07:28 Data reviewed: vital signs, nurses notes, lab test result(s), EKG, radiologic studies, [facility] CT scan, plain films. 07/27 07:12 Order name: Basic Metabolic Panel [facility] 07/27 07:12 Order name: CBC with Diff [facility] 07/27 07:12 Order name: LFT's [facility] 07/27 07:12 Order name: Magnesium [facility] 07/27 07:12 Order name: NT PRO-BNP; Complete Time: 08:20 [facility] 07/27 07:12 Order name: PT-INR; Complete Time: 08:20 [facility] 07/27 07:12 Order name: Troponin (emerg Dept Use Only); Complete Time: 08:20 [facility] 07/27 07:12 Order name: Lipase; Complete Time: 08:20 [facility] 07/27 07:13 Order name: Basic Metabolic Panel; Complete Time: 08:20 [facility] 07/27 07:13 Order name: CBC with Automated Diff; Complete Time: 08:20 [facility] 07/27 07:13 Order name: Liver (Hepatic) Function; Complete Time: 08:20 [facility] 07/27 07:13 Order name: Magnesium; Complete Time: 08:20 [facility] 07/27 09:31 Order name: Urine Dipstick--Ancillary (enter results) 07/27 09:59 Order name: Urine Dipstick-Ancillary [facility] 07/27 07:12 Order name: XRAY Chest (1 view); Complete Time: 08:40 [facility] 07/27 07:12 Order name: EKG; Complete Time: 07:13 [facility] 07/27 07:12 Order name: Cardiac monitoring; Complete Time: 07:19 [facility] 07/27 07:12 Order name: EKG - Nurse/Tech; Complete Time: 07:31 [facility] 07/27 07:12 Order name: IV Saline Lock; Complete Time: 07: [facility] 07/27 07:12 Order name: Labs collected and sent; Complete Time: : [facility] 07/27 07:12 Order name: O2 Per Protocol; Complete Time: 07:19 [facility] 07/27 07:12 Order name: O2 Sat Monitoring; Complete Time: 07:19 [facility] 07/27 07:12 Order name: Urine Dipstick-Ancillary (obtain specimen); Complete Time: 08:56 [facility] 07/27 07:30 Order name: CT Head C Spine; Complete Time: 09:20 [facility] 07/27 07:30 Order name: CT Aorta for Dissection; Complete Time: 09:27 [facility] Administered Medications: 07:35 Drug: NS 0.9% 1000 ml Route: IV; Rate: 75 ml/hr; Site: right antecubital; 12:00 Follow up: Response: No adverse reaction; IV Status: Infusion continued upon admission sg 09:28 Drug: Aspirin Chewable Tablet 324 mg Route: PO; sg 09:45 Follow up: Response: No adverse reaction Disposition: 07/27/19 07:47 Hospitalization ordered by Dimitry Che for Observation. Preliminary diagnosis are Chest pain, unspecified, Essential (primary) hypertension, Weakness. - Bed requested for Telemetry/MedSurg (observation). - Status is Observation. - Condition is Fair. - Problem is new. - Symptoms have improved. UTI on Admission? No Signatures: Dispatcher [employer] [facility] Rosa M Boyce, Magy Duncan RN RN Bradford Lucero RN RN Bryant Deras MD MD cha Smirch, Shelby, RN RN Pavan Kilpatrick RN RN [id number] Corrections: (The following items were deleted from the chart) 11: 07:47 Hospitalization Ordered by Dimitry Che DO for Observation. Preliminary dw diagnosis is Chest pain, unspecified; Essential (primary) hypertension; Weakness. Bed requested for Telemetry/MedSurg (observation). Status is Observation. Condition is Fair. Problem is new. Symptoms have improved. UTI on Admission? No. matthew 12:53 11:27 07/27/2019 07:47 Hospitalization Ordered by Dimitry Che DO for Observation. Preliminary diagnosis is Chest pain, unspecified; Essential (primary) hypertension; Weakness. Bed requested for Telemetry/MedSurg (observation). Status is Observation. Condition is Fair. Problem is new. Symptoms have improved. UTI on Admission? No. dw
[2019-07-27 08:01] LABS: ALT/SGPT 54 U/L (12-78); AST/SGOT 20 U/L (15-37); Albumin 3.6 g/dL (3.4-5.0); Alkaline Phosphatase 101 U/L (45-117); BUN Blood Urea Nitrogen 9 mg/dL (7-18); Bicarbonate 29 mmol/L (21-32); Bilirubin Direct < 0.1 mg/dL (0-0.2); Bilirubin Total 0.4 mg/dL (0.2-1.0); Glucose Level 104 mg/dL (74-106); Lipase 74 U/L (73-393); NT PRO-BNP 8 pg/mL (<125); Protein, Total 8.2 g/dL (6.4-8.2); Sodium Level 141 mmol/L (136-145); Troponin (Emerg Dept Use Only) < 0.02 ng/mL (0.0-0.045)
--- NOTE | 2019-07-27 08:28 | RAD REPORT ---
EXAM DESCRIPTION: RAD - Chest Single View - 07/27/2019 8:01 am CLINICAL HISTORY: CHEST PAIN Chest pain. COMPARISON: Abdomen Acute Series dated 03/07/2017; Chest Single View dated 03/06/2017; Chest Single Vi ew dated 11/12/2016; CHEST SINGLE VIEW dated 02/23/2013 FINDINGS: Portable technique limits examination quality. The lungs are grossly clear. The heart is normal in size. No displaced fractures. IMPRESSION: No acute intrathoracic process suspected.
--- NOTE | 2019-07-27 08:57 | RAD REPORT ---
EXAM DESCRIPTION: CT - CTHCSPWOC - 07/27/2019 8:47 am CLINICAL HISTORY: Trauma, head and neck injury. PAIN COMPARISON: No comparisons TECHNIQUE: Axial 5 mm thick images of the head were obtained. Axial 2 mm thick images of the cervical spine were obtained with sagittal and coronal reconstruction images generated and reviewed. All CT scans are performed using dose optimization technique as appropriate and may include automated exposure control or mA/KV adjustment according to patient size. FINDINGS: CT HEAD WITHOUT CONTRAST: No acute hemorrhage, hydrocephalus or extra-axial collection is identified.No areas of brain edema or midline shift. Trace fluid is seen in the inferior right mastoid air cell. Mild mucoperiosteal thickening of the fro ntoethmoidal sinuses.The calvarium is intact. CT CERVICAL SPINE WITHOUT CONTRAST: No fracture or subluxation.Mild lower cervical spondylosis.No prevertebral soft tissues swelling is i dentified. IMPRESSION: No acute intracranial or cervical spine findings.
--- NOTE | 2019-07-27 09:23 | RAD REPORT ---
EXAM DESCRIPTION: CT - Angio Aorta For Dissection - 07/27/2019 8:47 am CLINICAL HISTORY: Chest pain radiating to the back. Chest pain;Dyspnea;PE;Dissection COMPARISON: Abdomen Pelvis W Contrast dated 03/04/2017 TECHNIQUE: CT angiography of the aorta was performed with MIPs. All CT scans are performed using dose optimization technique as appropriate and may include automated exposure control or mA/KV adjustment according to patient size. FINDINGS: A left aortic arch is present with normal branching pattern of the great vessels.No acute aortic finding is seen such as aneurysm, penetrating ulcer or dissection. The celiac axis, SMA, DAILY and renal arteries are patent. Heart size is mildly enlarged. No evidence of pulmonary embolism. The lungs are clear. Small hiatal hernia. Cholecystectomy clips. The liver demonstrates no focal mass or biliary dilatation.The spleen, pancreas, adrenal glands and l eft kidney are within normal limits for arterial phase imaging.3.3 cm intermediate density mass is pr esent posterior cortex right kidney. This appears enlarged since comparative study which time measure d 17-18 mm. No bowel obstruction, free fluid or abscess.Normal appendix.No pathologic enlarged lymphadenopathy id entified. No fracture or worrisome bone lesion seen.Bilateral fat containing inguinal hernias, slightly greater on the right. IMPRESSION: No acute aortic finding is demonstrated.No pulmonary embolism. 3.3 cm intermediate density lesion posterior right renal cortex demonstrating interval growth since 2 017. This is favored to represent a complicated cyst or hemorrhagic cyst. Recommend followup nonemerg ent MRI renal protocol for further assessment.
[2019-07-27] MEDS ORDERED: ASPIRIN 81 MG CHEWABLE TABLET ONE (09:29)
[2019-07-27 09:58] LABS: Urine Blood NEGATIVE (NEG); Urine Glucose NEGATIVE (NEG); Urine Specific Gravity 1.015 (1.005-1.030)
[2019-07-27 09:59] LABS: Urine Protein NEGATIVE (NEG)
--- NOTE | 2019-07-27 11:22 | P.HP ---
Certification for Inpatient Patient admitted to: Observation With expected LOS: <2 Midnights Patient will require the following post-hospital care: None Practitioner: I am a practitioner with admitting privileges, knowledge of patient current condition, hospital course, and medical plan of care. Services: Services provided to patient in accordance with Admission requirements found in Title 42 Section 412.3 of the Code of Federal Regulations Patient History Date of Service: 07/27/19 Primary Care Provider: Dr. Berger; Cardiology-Dr. Waite Reason for admission: Chest pain History of Present Illness: 49-year-old male with history of hypertension, tobacco abuse presented with chest pain. Patient reported chest pain to the substernal region over the last week. Pain comes and goes. No significant shortness of breath noted with this. He has reported some mild headaches and lightheadedness. Patient reports history of migraines. He came to the ER today DN due to chest pain. In the ER patient evaluated. Initial cardiac enzymes unremarkable. CBC and BMP unremarkable. CT head negative. Chest x-ray negative. CT chest shows no pulmonary embolism or aneurysm. A 3.3 cm density to the posterior right kidney noted. There has been some interval change since 2017. Likely complicated cyst versus hemorrhagic cyst. Patient was admitted for further evaluation. I saw the patient ER, pain had resolved. Patient reports some indigestion. Patient is taking ibuprofen due to headaches. Patient has seen Cardiology in the past. He had a stress test done about 3 years ago. He was unremarkable at that time. Allergies No Known Allergies Allergy (Unverified 03/06/17 20:42) Home medications list reviewed: Yes Home Medications: levoFLOXacin [Levaquin] 500 mg PO DAILY #10 tab 03/09/17 metroNIDAZOLE [Flagyl*] 500 mg PO Q6HR #30 03/09/17 - Past Medical/Surgical History Diabetic: No -: Hypertension -: Obstructive sleep apnea -: GERD with hiatal hernia -: Tobacco abuse-dipping -: 3.3 cm posterior right kidney density -: Cholecystectomy Psychosocial/ Personal History: The patient is of 6 years, he has 3 children. He works as a physician general practice. - Family History Father -: Heart disease, Hypertension, Diabetes, Cancer, Other (see notes) Mother -: Diabetes, Cancer Sister -: Other (see notes) Notes: thyroid issues - Social History Smoking Status: Light Tobacco smoker (1-9 cigarettes/day) Counseled patient to stop smoking for: less than 10 minutes Smoking therapy provided: Yes Patient receptive to therapy: Yes Alcohol use: No CD- Drugs: No Caffeine use: Yes Place of Residence: Home Review of Systems General: As per HPI Eyes: Unremarkable ENT: Unremarkable Respiratory: Unremarkable Cardiovascular: Chest Pain, Light Headedness, As per HPI Gastrointestinal: Unremarkable Genitourinary: Unremarkable Musculoskeletal: Unremarkable Integumentary: Unremarkable Neurological: Unremarkable Lymphatics: Unremarkable Physical Examination - Physical Exam General: Alert, In no apparent distress, Oriented x3, Cooperative HEENT: Atraumatic, Mucous membr. moist/pink Neck: Supple Respiratory: Clear to auscultation bilaterally, Normal air movement Cardiovascular: Normal pulses, Regular rate/rhythm Gastrointestinal: Normal bowel sounds, Soft and benign, Non-distended, No tenderness, No masses, No rebound, No guarding Musculoskeletal: No erythema, No tenderness, No warmth Integumentary: No tenderness/swelling, No erythema, No warmth, No cyanosis Neurological: Normal speech, Normal strength at 5/5 x4 extr, Normal tone, Normal affect - Studies Laboratory Data (last 24 hrs) 07/27/19 07:30: PT 12.8 H, INR 1.09 07/27/19 07:30: WBC 5.8, Hgb 16.7, Hct 50.0 H, Plt Count 233 07/27/19 07:30: Sodium 141, Potassium 4.0, BUN 9, Creatinine 1.15, Glucose 104, Magnesium 2.0, Total Bilirubin 0.4, AST 20, ALT 54, Alkaline Phosphatase 101, Lipase 74 Assessment and Plan - Plan Impression: Chest pain likely noncardiac GERD with higher hernia Hypertension Tobacco use 3.3 cm right posterior kidney density likely complicated cyst/hemorrhagic cyst increase in size since 2017 Plan: Chest pain likely noncardiac: Patient admitted for further evaluation and treatment. Will continue to monitor telemetry and cardiac enzymes. Will order echocardiogram and cardiac stress test to further evaluate. Will consult cardiology. Anticipate possible discharge today if workup unremarkable. Await further recommendations from cardiology. GERD with higher hernia: Will start Protonix. Will teach on current diet. Hypertension: Blood pressure elevated upon arrival. Will increase carvedilol to 6.25 mg twice daily. Tobacco use: Tobacco cessation addressed in detail. 3.3 cm right posterior kidney density likely complicated cyst/hemorrhagic cyst increase in size since 2017: Will recommend MRI of kidney as an outpatient to further evaluate. Discharge Plan: Home Plan to discharge in: 24 Hours - Advance Directives Does patient have a Living Will: No Does patient have a Durable POA for Healthcare: No Time Spent Managing Pts Care (In Minutes): 55
[2019-07-27] MEDS ORDERED: ACETAMINOPHEN 500 MG TAB PO PRN (12:28)
[2019-07-27] MEDS ORDERED: TRAMADOL HCL 50 MG TAB PO PRN (12:28)
[2019-07-27] MEDS ORDERED: NITROGLYCERIN 0.4 MG/TAB SL PRN (12:28)
[2019-07-27] MEDS ORDERED: ONDANSETRON 4 MG/2 ML VIAL IV PRN (12:28)
[2019-07-27 12:35] VITALS: BMI 32.5
[2019-07-27 13:10] LABS: CKMB Creatine Kinase MB < 1.0 ng/mL (0.3-3.6); Creatine Phosphokinase 77 U/L (39-308); HDL Cholesterol 34 mg/dL (40-60); LDL Cholesterol, Calculated 66 (<130); Troponin I < 0.02 ng/mL (0.0-0.045)
[2019-07-27 14:08] VITALS: O2SAT 94
[2019-07-27 14:12] VITALS: BP 124/76; TEMP 97.3
--- NOTE | 2019-07-27 14:50 | P.DS ---
Admission Date: 07/27/19 Discharge Date: 07/27/19 Primary Care Provider: Dr. Berger; Cardiology-Dr. Waite Disposition: ROUTINE DISCHARGE Discharge Condition: GOOD Reason for Admission: Chest pain Consultations: Cardiology-Dr. Armando Procedures: Ct Head: COMPARISON: No comparisons TECHNIQUE: Axial 5 mm thick images of the head were obtained. Axial 2 mm thick images of the cervical spine were obtained with sagittal and coronal reconstruction images generated and reviewed. All CT scans are performed using dose optimization technique as appropriate and may include automated exposure control or mA/KV adjustment according to patient size. FINDINGS: CT HEAD WITHOUT CONTRAST: No acute hemorrhage, hydrocephalus or extra-axial collection is identified.No areas of brain edema or midline shift. Trace fluid is seen in the inferior right mastoid air cell. Mild mucoperiosteal thickening of the frontoethmoidal sinuses.The calvarium is intact. CT CERVICAL SPINE WITHOUT CONTRAST: No fracture or subluxation.Mild lower cervical spondylosis.No prevertebral soft tissues swelling is identified. IMPRESSION: No acute intracranial or cervical spine findings. Ct Chest: COMPARISON: Abdomen Pelvis W Contrast dated 03/04/2017 TECHNIQUE: CT angiography of the aorta was performed with MIPs. All CT scans are performed using dose optimization technique as appropriate and may include automated exposure control or mA/KV adjustment according to patient size. FINDINGS: A left aortic arch is present with normal branching pattern of the great vessels.No acute aortic finding is seen such as aneurysm, penetrating ulcer or dissection. The celiac axis, SMA, DAILY and renal arteries are patent. Heart size is mildly enlarged. No evidence of pulmonary embolism. The lungs are clear. Small hiatal hernia. Cholecystectomy clips. The liver demonstrates no focal mass or biliary dilatation.The spleen, pancreas , adrenal glands and left kidney are within normal limits for arterial phase imaging.3.3 cm intermediate density mass is present posterior cortex right kidney. This appears enlarged since comparative study which time measured 17-18 mm. No bowel obstruction, free fluid or abscess.Normal appendix.No pathologic enlarged lymphadenopathy identified. No fracture or worrisome bone lesion seen.Bilateral fat containing inguinal hernias, slightly greater on the right. IMPRESSION: No acute aortic finding is demonstrated.No pulmonary embolism. 3.3 cm intermediate density lesion posterior right renal cortex demonstrating interval growth since 2017. This is favored to represent a complicated cyst or hemorrhagic cyst. Recommend followup nonemergent MRI renal protocol for further assessment. ECHO: Obtained Medical Problem List: Chest pain likely noncardiac GERD with hiatal hernia Hypertension Tobacco use 3.3 cm right posterior kidney density likely complicated cyst/hemorrhagic cyst increased in size since 2017 Brief History of Present Illness: 49-year-old male with history of hypertension, tobacco abuse presented with chest pain. Patient reported chest pain to the substernal region over the last week. Pain comes and goes. No significant shortness of breath noted with this. He has reported some mild headaches and lightheadedness. Patient reports history of migraines. He came to the ER today DN due to chest pain. In the ER patient evaluated. Initial cardiac enzymes unremarkable. CBC and BMP unremarkable. CT head negative. Chest x-ray negative. CT chest shows no pulmonary embolism or aneurysm. A 3.3 cm density to the posterior right kidney noted. There has been some interval change since 2017. Likely complicated cyst versus hemorrhagic cyst. Patient was admitted for further evaluation. I saw the patient ER, pain had resolved. Patient reports some indigestion. Patient is taking ibuprofen due to headaches. Patient has seen Cardiology in the past. He had a stress test done about 3 years ago. He was unremarkable at that time. Hospital Course: Patient presented with chest pain. Patient was evaluated in the emergency room and admitted for observation. No significant changes on telemetry. Cardiac enzymes unremarkable. Echocardiogram obtained. Case discussed with cardiology. Patient can be discharged home. Cardiology recommends follow up in his office for outpatient cardiac stress test. For now patient may continue with 81 mg daily of aspirin. Patient with hypertension. Blood pressure was elevated upon arrival. Medication was adjusted. At discharge he will continue with carvedilol 6.25 mg 1 pill twice daily. Recommend to maintain blood pressures less 140/90. Further adjustment can be done by his PCP. Tobacco cessation addressed in detail. Patient with GERD and hiatal hernia. CT scan showed hiatal hernia. Will recommend Protonix 40 mg 1 pill once daily. Recommend follow up with GI as an outpatient to further evaluate and address. CT scan of the chest did reveal a 3.3 cm right posterior kidney density likely complicated cyst versus hemorrhagic cyst. This has increased in size since 2017. Will recommend follow up with his PCP to obtain MRI of the kidney to further evaluate. Urinalysis unremarkable. Vital Signs/Physical Exam: Temp Pulse Resp BP Pulse Ox 97.3 F 69 20 124/76 96 07/27/19 12:40 07/27/19 12:40 07/27/19 12:40 07/27/19 12:40 07/27/19 12:40 General: Alert, In no apparent distress, Oriented x3, Cooperative HEENT: Atraumatic Neck: Supple Respiratory: Clear to auscultation bilaterally, Normal air movement Cardiovascular: Normal pulses, Regular rate/rhythm Gastrointestinal: Normal bowel sounds, Soft and benign, Non-distended, No tenderness, No masses, No rebound, No guarding Musculoskeletal: No erythema, No tenderness, No warmth Integumentary: No tenderness/swelling, No erythema, No warmth, No cyanosis Neurological: Normal speech, Normal strength at 5/5 x4 extr, Normal tone, Normal affect Laboratory Data at Discharge: WBC 5.8 K/uL (4.3-10.9) 07/27/19 07:30 Hgb 16.7 g/dL (13.6-17.9) 07/27/19 07:30 Hct 50.0 % (39.6-49.0) H 07/27/19 07:30 Plt Count 233 K/uL (152-406) 07/27/19 07:30 PT 12.8 SECONDS (9.5-12.5) H 07/27/19 07:30 INR 1.09 07/27/19 07:30 Sodium 141 mmol/L (136-145) 07/27/19 07:30 Potassium 4.0 mmol/L (3.5-5.1) 07/27/19 07:30 BUN 9 mg/dL (7-18) 07/27/19 07:30 Creatinine 1.15 mg/dL (0.55-1.3) 07/27/19 07:30 Glucose 104 mg/dL (74-106) 07/27/19 07:30 Magnesium 2.0 mg/dL (1.8-2.4) 07/27/19 07:30 Total Bilirubin 0.4 mg/dL (0.2-1.0) 07/27/19 07:30 AST 20 U/L (15-37) 07/27/19 07:30 ALT 54 U/L (12-78) 07/27/19 07:30 Alkaline Phosphatase 101 U/L (45-117) 07/27/19 07:30 Troponin I < 0.02 ng/mL (0.0-0.045) 07/27/19 12:50 Triglycerides 55 mg/dL (<150) 07/27/19 12:50 Cholesterol 111 mg/dL (<200) 07/27/19 12:50 HDL Cholesterol 34 mg/dL (40-60) L 07/27/19 12:50 Cholesterol/HDL Ratio 3.26 07/27/19 12:50 Lipase 74 U/L (73-393) 07/27/19 07:30 Home Medications: Aspirin [Aspirin EC 81 MG] 81 mg PO DAILY #90 tablet. 07/27/19 Pantoprazole [Protonix Tab*] 40 mg PO DAILYAC #30 tab 07/27/19 carvediloL [Carvedilol] 3.125 mg PO BID 07/27/19 carvediloL [Coreg*] 6.25 mg PO BID #60 tab 07/27/19 New Medications: Aspirin [Aspirin EC 81 MG] 81 mg PO DAILY #90 tablet. carvediloL [Coreg*] 6.25 mg PO BID #60 tab Pantoprazole [Protonix Tab*] 40 mg PO DAILYAC #30 tab Patient Discharge Instructions: 1. Recommend follow up with his PCP within 1 week to follow up this hospitalization. 2. Patient presented with chest pain. Patient was evaluated in the emergency room and admitted for observation. No significant changes on telemetry. Cardiac enzymes unremarkable. Echocardiogram obtained. Case discussed with cardiology. Patient can be discharged home. Cardiology recommends follow up in his office for outpatient cardiac stress test. For now patient may continue with 81 mg daily of aspirin. 3. Patient with hypertension. Blood pressure was elevated upon arrival. Medication was adjusted. At discharge he will continue with carvedilol 6.25 mg 1 pill twice daily. Recommend to maintain blood pressures less 140/90. Further adjustment can be done by his PCP. 4. Tobacco cessation addressed in detail. 5. Patient with GERD and hiatal hernia. CT scan showed hiatal hernia. Will recommend Protonix 40 mg 1 pill once daily. Recommend follow up with GI as an outpatient to further evaluate and address. 6. CT scan of the chest did reveal a 3.3 cm right posterior kidney density likely complicated cyst versus hemorrhagic cyst. This has increased in size since 2017. Will recommend follow up with his PCP to obtain MRI of the kidney to further evaluate. Urinalysis unremarkable. Diet: AHA Activity: Ad yogesh Time spent managing pt's care (in minutes): 55
--- NOTE | 2019-07-27 14:53 | EKG ---
Test Date: 2019-07-27 Test Time: 07:30:31 Spring Assembler: DASHA MEASUREMENT RESULTS: Intervals: Rate: 84 DE: 156 QRSD: 104 QT: 358 QTc: 423 Skipwith: P: 27 DE: 156 QRS: 0 T: 19 INTERPRETIVE STATEMENTS: Normal sinus rhythm Inferior infarct, age undetermined Abnormal ECG Compared to ECG 03/06/2017 19:42:33 Sinus tachycardia no longer present Myocardial infarct finding still present Electronically Signed On 07-27-19 14:51:43 FARM ADVISER by Dillon Armando
[2019-07-27] MEDS ORDERED: INFLUENZA VACCINE (for 3y+) 0.5 ML DOSE IMVAC ONE (15:00)
[2019-07-27] MEDS ORDERED: carvediloL 6.25 MG TAB PO SCH (21:00)
[2019-07-27] MEDS ORDERED: ATORVASTATIN 10 MG TAB PO SCH (21:00)
[2019-07-28] MEDS ORDERED: PANTOPRAZOLE 40MG TABLET PO SCH (06:30)
[2019-07-28] MEDS ORDERED: ASPIRIN EC 81 MG TAB PO SCH (09:00)
[2019-07-28] MEDS ORDERED: ENOXAPARIN 40 MG/0.4 ML SQ SCH (09:00)
--- NOTE | 2019-07-28 09:55 | ECHO ---
HEIGHT: 6 ft 4 in WEIGHT: 267 lb 0 oz DATE OF STUDY: 07/27/[address]: Dimitry Che DO 2-DIMENSIONAL: YES M.MODE: YES DOPPLER: YES COLOR FLOW: YES TDS: NO PORTABLE: NO DEFINITY: NO BUBBLE STUDY: NO DIAGNOSIS: CHEST PAIN CARDIAC HISTORY: CATHERIZATION: NO SURGERY: NO PROSTHETIC VALVE: NO PACEMAKER: NO MEASUREMENTS (cm) DIASTOLIC (NORMALS) SYSTOLIC (NORMALS) IVSd 1.2 (0.6-1.2) LA Diam 4.2 (1.9-4.0) LVEF 59% LVIDd 5.5 (3.5-5.7) LVIDs 3.8 (2.0-3.5) %FS 32% LVPWd 1.1 (0.6-1.2) Ao Diam 4.2 (2.0-3.7) 2 DIMENSIONAL ASSESSMENT: RIGHT ATRIUM: NORMAL LEFT ATRIUM: NORMAL RIGHT VENTRICLE: NORMAL LEFT VENTRICLE: NORMAL TRICUSPID VALVE: NOMRAL MITRAL VALVE: NORMAL PULMONIC VALVE: NORMAL AORTIC VALVE: NORMAL PERICARDIAL EFFUSION: NONE AORTIC ROOT: NORMAL LEFT VENTRICULAR WALL MOTION: NORMAL. DOPPLER/COLOR FLOW: NORMAL. COMMENTS: NORMAL 2D ECHO WITH DOPPLER. TECHNOLOGIST: LELE SALTER
== END 2019-07-27 16:50 | disposition home or self-care (01) ==
LOC: ER 07:04 → ERHOLD 09:15 → 2ND 11:42
PROVIDERS: ADMIT Family Medicine; ATTEND Family Medicine
DX: R07.9 Chest pain, unspecified (principal); I10 Essential (primary) hypertension; F17.210 Nicotine dependence, cigarettes, uncomplicated; G47.33 Obstructive sleep apnea (adult) (pediatric); K21.9 Gastro-esophageal reflux disease without esophagitis; K44.9 Diaphragmatic hernia without obstruction or gangrene; N28.1 Cyst of kidney, acquired
CPT/HCPCS: 96361; 93005; 93306; 85025; 80048; 36415; 83735; 82550; 85610; 80061; 80076; 81003; 84484 ×2; 82553; 83690; 83880; 70450; 72125; 71275; 74175; 71045; 96360; 99285; Q9967; G0378 ×2

== ENCOUNTER 2021-01-02 06:41 | Emergency (ER) | payer BC ==
[2021-01-02 07:36] LABS: Basophils % 0.3 % (0-1.3); Hematocrit 47.7 % (39.6-49.0); Lymphocytes % 12.8 % (15.3-44.8); MPV 8.7 fL (7.6-11.3); RBC Red Blood Cell Count 5.47 M/uL (4.33-5.43)
[2021-01-02] MEDS ORDERED: NA CHLORIDE 0.9% 2,000 ML ONE (07:40)
[2021-01-02] MEDS ORDERED: ONDANSETRON 4 MG/2 ML VIAL ONE (07:40)
[2021-01-02 07:53] LABS: ALT/SGPT 83 U/L (12-78); AST/SGOT 34 U/L (15-37); Albumin 3.8 g/dL (3.4-5.0); Alkaline Phosphatase 104 U/L (45-117); BUN Blood Urea Nitrogen 14 mg/dL (7-18); Bicarbonate 25 mmol/L (21-32); Bilirubin Direct 0.1 mg/dL (0-0.2); Bilirubin Total 0.5 mg/dL (0.2-1.0); Glucose Level 101 mg/dL (74-106); Lipase 33 U/L (73-393); Potassium 3.6 mmol/L (3.5-5.1); Protein, Total 8.1 g/dL (6.4-8.2); Sodium Level 143 mmol/L (136-145)
--- NOTE | 2021-01-02 08:31 | RAD REPORT ---
EXAM DESCRIPTION: CTAbdomen Pelvis W Contrast - 01/02/2021 7:43 am CLINICAL HISTORY: Abdominal pain. diarrhea, vomiting x 1 week COMPARISON: Abdomen Pelvis W Contrast dated 03/04/2017; Angio Aorta For Dissection dated 07/27/2019 TECHNIQUE: Biphasic CT imaging of the abdomen and pelvis was performed with 100 ml non-ionic IV cont rast. All CT scans are performed using dose optimization technique as appropriate and may include automated exposure control or mA/KV adjustment according to patient size. FINDINGS: The lung bases are clear. Mild fatty liver is present. Small low-density lesion in the right lobe of the liver is present measu ring 10 mm, likely a small cyst. Cholecystectomy clips. No intra or extrahepatic biliary tree dilatat ion. The spleen, pancreas, adrenal glands and left kidney are within normal limits. 5.1 x 4.5 cm cystic le mele is present right kidney appearing enlarged since comparative study which time it measured 3.3 cm . Within the rectum there is a possible 19 mm polypoid lesion seen. No bowel obstruction, free air, free fluid or abscess. The appendix is normal. No evidence of signi ficant lymphadenopathy. No lytic or blastic bone lesion. Small bilateral fat containing inguinal hernias. IMPRESSION: Interval enlargement of complex cystic mass involving the posterior aspect of the right kidney. Recommend follow-up nonemergent MRI of the abdomen without and with contrast for further leena acterization of this mass. Complex cystic lesion or cystic neoplasia are possibilities. 19 mm polypoid lesion is seen in the rectum, direct visualization with colonoscopy would be recommend ed.
[2021-01-02] MEDS ORDERED: DIPHENOX/ATROP SULF 1 TAB PO ONE (09:05)
--- NOTE | 2021-01-02 09:44 | ER ---
Nurse's Notes [facility] Name: Gael Vela Age: 50 yrs Sex: Male : 1970 Arrival Date: 01/02/2021 Time: 06:44 Bed 14 Private MD: Diagnosis: Diarrhea, unspecified;Dehydration Presentation: 01/02 07:15 Chief complaint: Patient states: "I have been having diarrhea since last Saturday. I am jd3 feeling dehydrated now and I started vomiting this morning.". Coronavirus screen: At this time, the client does not indicate any symptoms associated with coronavirus-19. Ebola Screen: Patient negative for fever greater than or equal to 101.5 degrees Fahrenheit, and additional compatible Ebola Virus Disease symptoms. Initial Sepsis Screen: Does the patient meet any 2 criteria? No. Patient's initial sepsis screen is negative. Does the patient have a suspected source of infection? No. Patient's initial sepsis screen is negative. Risk Assessment: Do you want to hurt yourself or someone else? Patient reports no desire to harm self or others. Onset of symptoms was December 27, 2020. 07:15 Method Of Arrival: Ambulatory jd3 07:15 Acuity: RENEA 3 jd3 Historical: - Allergies: 07:18 No Known Allergies; jd3 - Home Meds: 07:18 Protonix Oral [Active]; carvedilol oral oral [Active]; levothyroxine oral [Active]; jd3 - PMHx: 07:18 acid reflux; Headaches; Hypertension; Thyroid problem; jd3 - PSHx: 07:18 Cholecystectomy; jd3 - Immunization history:: Adult Immunizations up to date, Client reports receiving the 2nd dose of the Covid vaccine. - Social history:: Smoking status: Patient reports use of chewing tobacco. - Family history:: not pertinent. - Hospitalizations: : No recent hospitalization is reported. Screenin:25 Abuse screen: Denies threats or abuse. Denies injuries from another. Nutritional jl7 screening: No deficits noted. Tuberculosis screening: No symptoms or risk factors identified. Fall Risk IV access (20 points). Total Foley Fall Scale indicates No Risk (0-24 pts). Assessment: 07:25 Reassessment: pt to CT. jl7 07:25 General: Appears in no apparent distress. uncomfortable, Behavior is calm, cooperative. jl7 Pain: Complains of pain in abdomen diffusely Pain currently is 5 out of 10 on a pain scale. Neuro: Level of Consciousness is awake, alert, obeys commands, Oriented to person, place, time, situation. Cardiovascular: Patient's skin is warm and dry. Respiratory: Airway is patent Respiratory effort is even, unlabored, Respiratory pattern is regular, symmetrical. GI: Abdomen is round non-distended, Stools are reported to be diarrhea. Reports bloating, diarrhea, nausea, vomiting. Derm: Skin is pink, warm \\T\\ dry. 08:12 Reassessment: Patient appears in no apparent distress at this time. Patient and/or jl7 family updated on plan of care and expected duration. Pain level reassessed. Patient is alert, oriented x 3, equal unlabored respirations, skin warm/dry/pink. Denies nausea. 09:00 Reassessment: Patient appears in no apparent distress at this time. No changes from jl7 previously documented assessment. Patient and/or family updated on plan of care and expected duration. Pain level reassessed. Patient is alert, oriented x 3, equal unlabored respirations, skin warm/dry/pink. Vital Signs: 07:18 BP 137 / 94; Pulse 79; Resp 16 S; Temp 98.0(TE); Pulse Ox 95% on R/A; Weight 127.01 kg jd3 (R); Height 6 ft. 4 in. (193.04 cm) (R); Pain 5/10; 08:12 BP 120 / 79; Pulse 77; Resp 15; Pulse Ox 95% ; jl7 08:48 BP 120 / 83; Pulse 77; Resp 15; Pulse Ox 97% ; jl7 07:18 Body Mass Index 34.08 (127.01 kg, 193.04 cm) jd3 ED Course: 06:44 Patient arrived in ED. bp1 07:05 Froilan Kendrick MD is Attending Physician. rn 07:09 Charli Smart RN is Primary Nurse. jl7 07:16 Triage completed. jd3 07:18 Arm band placed on. jd3 07:25 Patient has correct armband on for positive identification. Bed in low position. Call [facility] light in reach. Side rails up X 1. Pulse ox on. NIBP on. 07:25 Initial lab(s) drawn, by me, sent to lab. Inserted saline lock: 20 gauge in right jl7 antecubital area, using aseptic technique. Blood collected. 07:43 CT Abd/Pelvis - IV Contrast Only In Process Unspecified. EDMS 09:50 No provider procedures requiring assistance completed. IV discontinued, intact, jl7 bleeding controlled, No redness/swelling at site. Pressure dressing applied. Administered Medications: 07:25 Drug: Zofran (Ondansetron) 4 mg Route: IVP; Site: right antecubital; jl7 08:13 Follow up: Response: No adverse reaction; Nausea is decreased jl7 07:25 Drug: NS 0.9% 1000 ml Route: IV; Rate: 1000 ml; Site: right antecubital; jl7 09:45 Follow up: Response: No adverse reaction; IV Status: Completed infusion; IV Intake: jl7 900ml 07:27 Drug: NS 0.9% 1000 ml Route: IV; Rate: 1000 ml; Site: right antecubital; jl7 08:30 Follow up: IV Status: Completed infusion; IV Intake: 1000ml jl7 08:48 Drug: LoMOTIL (diphenoxylate-atropine) 2 tabs Route: PO; jl7 09:50 Follow up: Response: No adverse reaction jl7 Intake: 08:30 IV: 1000ml; Total: 1000ml. jl7 09:45 IV: 900ml; Total: 1900ml. jl7 Outcome: 09:44 Discharge ordered by . rn 09:50 Discharged to home ambulatory. jl7 09:50 Condition: stable 09:50 Discharge instructions given to patient, family, Instructed on discharge instructions, follow up and referral plans. Demonstrated understanding of instructions, follow-up care. 09:50 Patient left the ED. jl7 Signatures: Dispatcher [employer] EDMS Froilan Kendrick MD MD rn Leal, Jahala RN RN jl7 Clifford Tamayo RN RN Susannah Menezes
--- NOTE | 2021-01-02 09:44 | EDPHYS ---
Physician Documentation [facility] Name: Gael Vela Age: 50 yrs Sex: Male : 1970 Arrival Date: 01/02/2021 Time: 06:44 Bed 14 Private MD: ED Physician Froilan Kendrick HPI: 01/02 07:18 This 50 yrs old Male presents to ER via Ambulatory with complaints of rn Vomiting/Diarrhea. 07:18 The patient presents to the emergency department with nausea, vomiting, diarrhea. rn Onset: The symptoms/episode began/occurred 1 week(s) ago. Possible causes: unknown. The symptoms are aggravated by nothing. The symptoms are alleviated by nothing. Associated signs and symptoms: Pertinent positives: diarrhea, nausea, vomiting, Pertinent negatives: abdominal pain, fever, GI bleeding. Severity of symptoms: At their worst the symptoms were mild in the emergency department the symptoms are unchanged. The patient has not experienced similar symptoms in the past. The patient has not recently seen a physician. Reports 1 week of nausea/vomiting/diarrhea, no fever, grandkids with recent vomiting/diarrhea but they got over it quickly and he hasn't. Reports mainly diarrhea but now with vomiting since yesterday. No blood in emesis or stool. Has happened once before, told was bowel obstruction, but didn't require surgery and got better with fluids, time, and abx. . Historical: - Allergies: 07:18 No Known Allergies; jd3 - Home Meds: 07:18 Protonix Oral [Active]; carvedilol oral oral [Active]; levothyroxine oral [Active]; jd3 - PMHx: 07:18 acid reflux; Headaches; Hypertension; Thyroid problem; jd3 - PSHx: 07:18 Cholecystectomy; jd3 - Immunization history:: Adult Immunizations up to date, Client reports receiving the 2nd dose of the Covid vaccine. - Social history:: Smoking status: Patient reports use of chewing tobacco. - Family history:: not pertinent. - Hospitalizations: : No recent hospitalization is reported. ROS: 07:18 Constitutional: Negative for fever, chills, and weight loss, Eyes: Negative for injury, rn pain, redness, and discharge, Neck: Negative for injury, pain, and swelling, Cardiovascular: Negative for chest pain, palpitations, and edema, Respiratory: Negative for shortness of breath, cough, wheezing, and pleuritic chest pain, Abdomen/GI: Negative for constipation Back: Negative for injury and pain, : Negative for injury, bleeding, discharge, and swelling, MS/Extremity: Negative for injury and deformity, Skin: Negative for injury, rash, and discoloration, Neuro: Negative for headache, numbness, tingling, and seizure. Exam: 07:18 Constitutional: This is a well developed, well nourished patient who is awake, alert, rn and in no acute distress. Head/Face: Normocephalic, atraumatic. ENT: dry MM Cardiovascular: Regular rate and rhythm. No pulse deficits. Respiratory: No increased work of breathing, no retractions or nasal flaring. Abdomen/GI: soft, non-tender, non-distended, no masses Skin: Warm, dry MS/ Extremity: Pulses equal, no cyanosis. Neuro: Awake and alert, GCS 15 Vital Signs: 07:18 BP 137 / 94; Pulse 79; Resp 16 S; Temp 98.0(TE); Pulse Ox 95% on R/A; Weight 127.01 kg jd3 (R); Height 6 ft. 4 in. (193.04 cm) (R); Pain 5/10; 08:12 BP 120 / 79; Pulse 77; Resp 15; Pulse Ox 95% ; jl7 08:48 BP 120 / 83; Pulse 77; Resp 15; Pulse Ox 97% ; jl7 07:18 Body Mass Index 34.08 (127.01 kg, 193.04 cm) jd3 MDM: 07:05 Patient medically screened. rn 09:42 Differential diagnosis: Nonspecific abd pain, viral gastroenteritis, gastroenteritis, rn colitis, diverticulitis. Data reviewed: vital signs, nurses notes, lab test result(s), radiologic studies, CT scan, and as a result, I will discharge patient. Counseling: I had a detailed discussion with the patient and/or guardian regarding: the historical points, exam findings, and any diagnostic results supporting the discharge/admit diagnosis, lab results, radiology results, the need for outpatient follow up, to return to the emergency department if symptoms worsen or persist or if there are any questions or concerns that arise at home. Response to treatment: the patient's symptoms have mildly improved after treatment, and as a result, I will discharge patient. Special discussion: I discussed with the patient/guardian in detail that at this point there is no indication for admission to the hospital. It is understood, however, that if the symptoms persist or worsen the patient needs to return immediately for re-evaluation. ED course: No acute findings on blood or CT abdomen, most likely viral illness, but will need to f/u for increasing right renal mass as well as moderate sized poly in rectum. Discussed this with patient. Told this to patient and understands. . 01/02 07:15 Order name: Basic Metabolic Panel; Complete Time: 07:57 rn 01/02 07:15 Order name: CBC with Diff; Complete Time: 07:57 rn 01/02 07:15 Order name: Hepatic Function; Complete Time: :57 rn 01/02 07:15 Order name: Lipase; Complete Time: 07:57 rn 01/02 07:15 Order name: CT Abd/Pelvis - IV Contrast Only; Complete Time: 08:33 rn 01/02 08:36 Order name: CREATININE WHOLE BLOOD; Complete Time: 09:09 EDMD 01/02 07:15 Order name: IV Saline Lock; Complete Time: 07:33 rn 01/02 07:15 Order name: Labs collected and sent; Complete Time: 07:33 rn Administered Medications: 07:25 Drug: Zofran (Ondansetron) 4 mg Route: IVP; Site: right antecubital; jl7 08:13 Follow up: Response: No adverse reaction; Nausea is decreased jl7 07:25 Drug: NS 0.9% 1000 ml Route: IV; Rate: 1000 ml; Site: right antecubital; jl7 09:45 Follow up: Response: No adverse reaction; IV Status: Completed infusion; IV Intake: jl7 900ml 07:27 Drug: NS 0.9% 1000 ml Route: IV; Rate: 1000 ml; Site: right antecubital; jl7 08:30 Follow up: IV Status: Completed infusion; IV Intake: 1000ml jl7 08:48 Drug: LoMOTIL (diphenoxylate-atropine) 2 tabs Route: PO; jl7 09:50 Follow up: Response: No adverse reaction jl7 Disposition: 01/02/21 09:44 Discharged to Home. Impression: Diarrhea, unspecified, Dehydration. - Condition is Stable. - Discharge Instructions: Dehydration, Adult, Diarrhea, Adult. - Medication Reconciliation Form, Thank You Letter, Antibiotic Education, Prescription Opioid Use form. - Follow up: Private Physician; When: As needed; Reason: Recheck today's complaints, Re-evaluation by your physician. - Problem is new. - Symptoms have improved. Signatures: Dispatcher [employer] EDMS Froilan Kendrick MD MD rn Charli Smart RN RN jl7 Clifford Tamayo RN RN jd3 Corrections: (The following items were deleted from the chart) 09:50 09:44 01/02/2021 09:44 Discharged to Home. Impression: Diarrhea, unspecified; jl7 Dehydration. Condition is Stable. Forms are Medication Reconciliation Form, Thank You Letter, Antibiotic Education, Prescription Opioid Use. Follow up: Private Physician; When: As needed; Reason: Recheck today's complaints, Re-evaluation by your physician. Problem is new. Symptoms have improved. rn
[2021-01-02 09:57] VITALS: TEMP 98
[2021-01-02 09:59] VITALS: BP 120/83; O2SAT 97
== END 2021-01-02 09:50 | disposition home or self-care (01) ==
LOC: ER 06:41
DX: E86.0 Dehydration (principal); E07.9 Disorder of thyroid, unspecified; F17.220 Nicotine dependence, chewing tobacco, uncomplicated; I10 Essential (primary) hypertension
CPT/HCPCS: 85025; 80048; 36415; 82565; 80076; 83690; 74177; Q9967; J7030; J2405; 96361; 96374; 99284

== ENCOUNTER 2021-02-28 06:12 | Inpatient (IN) | payer BC ==
[2021-02-24 11:29] LABS: Urine Appearance CLEAR (Clear); Urine Blood NEGATIVE (Negative); Urine Color DK YELLOW (Yellow); Urine Glucose TRACE (Negative); Urine Protein TRACE (Negative); Urine Specific Gravity >=1.030 (1.005-1.030); Urine Urobilinogen 0.2 mg/dL (0.2-1.0); Urine pH 5.5 (5.0-7.0)
[2021-02-24 11:45] LABS: ALT/SGPT 36 U/L (12-78); AST/SGOT 13 U/L (15-37); Albumin 3.5 g/dL (3.4-5.0); Alkaline Phosphatase 102 U/L (45-117); Bilirubin Direct < 0.1 mg/dL (0-0.2); Bilirubin Total 0.3 mg/dL (0.2-1.0); Protein, Total 7.6 g/dL (6.4-8.2)
[2021-02-24 11:55] LABS: Urine Bilirubin NEGATIVE (Negative); Urine Microscopic Reflex ORDER UMIC
[2021-02-24 12:13] LABS: Urine Bacteria 20-50 /HPF (NONE SEEN); Urine RBC <5 /HPF (NONE SEEN)
[2021-02-24 12:14] LABS: Calcium Oxalate Crystals- Ur MODERATE (NONE SEEN); Urine Mucus 2+ /HPF (NONE SEEN)
[2021-02-28] MEDS ORDERED: Ringers Lactate 1,000 ML IV ONE ×3 (07:02→11:15)
[2021-02-28] MEDS ORDERED: CEFAZOLIN/SWI 1gm 1 GM/10 ML SYR ONE ×2 (07:02→07:16)
[2021-02-28] MEDS ORDERED: ACETAMINOPHEN 500 MG TAB PO PRN (07:23)
[2021-02-28] MEDS ORDERED: ONDANSETRON 4 MG/2 ML VIAL IV PRN (07:23)
[2021-02-28] MEDS ORDERED: BUPIVACAINE 0.25% PF 10 ML VIAL ONE (07:35)
[2021-02-28] MEDS ORDERED: dexAMETHasone 10 MG/ML VIAL ONE (07:41)
[2021-02-28] MEDS ORDERED: NS 0.9% VIAL 10 ML ONE ×4 (07:41→11:18)
[2021-02-28] MEDS ORDERED: FENTANYL CITR 250 MCG/5 ML ONE (07:41)
[2021-02-28] MEDS ORDERED: ONDANSETRON 4 MG/2 ML VIAL ONE (07:41)
[2021-02-28] MEDS ORDERED: VECURONIUM 10 MG/VIAL IV ONE ×2 (07:41→08:27)
[2021-02-28] MEDS ORDERED: propofoL 200 MG/20 ML VIAL IV ONE (07:41)
[2021-02-28] MEDS ORDERED: LIDOCAINE 1% MPF 5 ML VIAL ONE (07:41)
[2021-02-28] MEDS ORDERED: MIDAZOLAM HCL 2 MG/2 ML INJ ONE (07:41)
[2021-02-28] MEDS: D5 0.45 NS 1,000 ML IV SCH ×3 (08:00→21:07)
[2021-02-28] MEDS ORDERED: ROCURONIUM 50 MG/5 ML VIAL IV ONE (08:02)
[2021-02-28] MEDS ORDERED: EPHEDRINE SULF 50 MG/ML VIAL ONE (08:49)
[2021-02-28] MEDS ORDERED: GLYCOPYRROLATE 0.2 MG/ML SYR ONE (11:09)
[2021-02-28] MEDS ORDERED: NEOSTIGMINE 1 MG/ML -5 ML ONE (11:15)
[2021-02-28] MEDS ORDERED: MORPHINE 10 MG/ML VIAL ONE (11:15)
[2021-02-28] MEDS ORDERED: HYDROMORPHONE HCL 1 MG/ML INJ ONE ×3 (11:46→13:39)
--- NOTE | 2021-02-28 12:58 | OP ---
Surgeon: KAYLEY ABBASI Preoperative Diagnosis: Right 5 cm complex cystic renal mass. Postoperative Diagnosis: Right 5 cm complex cystic renal mass. Principle Procedure: Right laparoscopic radical nephrectomy. Indication For Procedure: Mr. Vela is a 50-year-old gentleman, who presented to the Urology Clin ic with evidence of an enhancing right renal mass with some cystic components. He underwent MRI eval uation, which confirmed the absence of any macroscopic fat and the presence of the enhancing central components with peripheral rim making it suspicious for renal cell carcinoma. I counseled the patien t that the cystic lesion was at least a Bosniak 3-4 lesion which carried at least a 50%-70% risk of r enal cell carcinoma. He elected to have the entirety of the kidney removed instead of undergoing a p artial nephrectomy because of concerns for recurrence, which I expressed were low regardless. Procedure In Detail: The patient was consented in the preoperative holding area before being transfe rred to the operative suite where general anesthesia was induced. An OG tube was placed for gastric decompression. Ancef 2 g IV antimicrobial prophylaxis was provided, and pneumo boots were provided f or DVT prophylaxis. He was placed in the modified flank position with the right side up and a neuro roll beneath his flank on that side. An axillary roll was placed beneath the axilla and the patient was padded to the table appropriately. A urethral Centeno catheter had been placed earlier by nursing. There was clear yellow urine draining. His abdomen was shaved, prepped using ChloraPrep, and drape d in standard fashion. The case was begun using a Veress needle to gain intraabdominal access and wi th adequate insufflation pressures obtained, his abdomen was adequately distended to 15 mmHg. I then placed a 5 mm trocar in the right upper quadrant near the midline, shifted somewhat laterally becaus e of his habitus. A 12 mm camera port trocar was marked about 3 cm lateral and 2 cm superior to the umbilicus and a 12 mm port was also identified in the right lateral quadrant. Using an optical 5 mm trocar and a 0-degree lens, I gained an access visually into the abdominal cavity via the right upper quadrant midline trocar site. I was able to visualize the entirety of the abdomen, and there were n o significant adhesions. As a result, I placed the other two 12 mm trocars under direct vision into the abdomen. The kidney was then surveyed and the mass was evident causing the kidney to be displace d into the peritoneal surface. I then began using Endo Niki and cautery to divide the line of Told t accessing beneath the peritoneum. LigaSure electrocautery was then used to complete that dissectio n down to the vermiform appendix. This was released away from the tail of Gerota fascia, and I retur carolynn to the superior pole of the kidney where I divided the peritoneal surface going superiorly beneat h the surface of the liver. Of note, a liver retractor 5 mm trocar and locking grasper were used to elevate the lobe of the liver overhanging the kidney. I then visualized the duodenum and kocherized it sharply using Endo Niki and sparing electrocautery. Once the duodenum was out of the way, I was then able to visualize the renal vein, the gonadal vessels, and the IVC. I then elevated the gonada l vessels and visualized the ureter. The ureter was similarly elevated, and the psoas muscle was vis ualized. I then began dividing any loose connective tissue between the posterior surface of the kidn ey and the Gerota fascia until a large gonadal vessel potentially was observed emanating from the garret n renal artery. I was able to dissect the artery superiorly and inferiorly and then used a ABEL endov ascular stapler to ligate and divide the renal artery. Once this was completed, I then continued dis secting to the renal vein where I similarly was able to dissect superiorly and inferiorly around the renal vein before using a second ABEL stapler to ligate and divide the right renal vein. Sparing the adrenal, I then dissected along the superomedial surface of the kidney using a LigaSure electrocauter y to divide the attachments. This was taken superolaterally and posteriorly. I then proceeded to th e tail of Gerota and the ureter which was clipped using metal clips and divided using LigaSure. I th en divided the tail of Gerota and the lateral attachments of the Gerota to the pelvic sidewall comple tely freeing the kidney. Attempts to place the kidney in an EndoCatch bag were thwarted to the massi ve size of the kidney and really its overlying fat. As a result, a locking grasper was placed on the kidney to micah it and I turned my attention to visualizing the point of incision in the lower midlin e. As there were no adhesions in that location, I instilled 0.25% Marcaine in the previously marked lower midline and then incised the lower midline making an approximately 3-4 mm incision. This was d eepened through the subcutaneous tissues and fat using electrocautery. The fascia was then visualize d and divided and the muscle was visualized. I identified the midline and lateralized the muscle div iding the posterior layer of the abdominal wall fascia. Then, the peritoneum was discretely visualiz ed and entered and I was able to grasp the kidney manually. Unfortunately, it was too large to remov e through the fascial incision made at this point; so I had to increase the incision by an additional 2 cm in length. Once this was done, with some difficulty, I was able to finagle the entirety of the kidney out of the incision and visualize it. The mass was visualized below beneath Gerota and was c ompletely intact and non-ruptured. As a result, this was delivered for pathologic analysis. I then irrigated the fascial and subcutaneous tissues with saline and using a #1 looped PDS, I closed the fa scia in a running fashion. Once this was done, we then placed a wet lap into the subcutaneous tissue and re-insufflated his abdomen visualizing it on the inside. The pressure was taken back down to 8 mmHg, and a search for bleeding was undertaken. Suction irrigation was employed to remove any bloody fluid within the right renal fossa, and the staple lines for both the artery and the vein were visua lized and intact with no bleeding. As a result, the pressure was taken back to 15 mmHg and I utilize d a Syd-Cathi device and a #1 PDS suture to close the right lateral quadrant trocar site. I th en used a 0 Vicryl to close the camera port incision site. The 5 mm trocars were then removed from t he right upper midline and the left upper midline liver retractors site under direct vision. There w as no bleeding from either site. I then decompressed his abdomen of carbon dioxide completely and re moved the 12 mm trocars tying down the sutures previously placed via Syd-Cathi closure. With t he sutures tied down, we then copiously irrigated each of the incisions and instilled subcutaneous Ma rcaine again. A 3-0 Vicryl was used to reapproximate the fat and subcutaneous layers of the lower mi dline incision, and 4-0 Monocryl was used to close the skin of all of the trocar sites and the lower midline incision. Dermabond was used to seal the skin, and the case was concluded. The patient was then taken out of the modified flank position, awakened from general anesthesia, transferred to a [facility] etcher, and then transferred to the recovery room in good condition. Complications: None. Disposition: The patient will be admitted for at least the next 23 hours for observation and during this time, his diet will be advanced as tolerated with milk of magnesia and a Dulcolax suppository pr ovided for bowel promotility. Once he is able to pass gas, we will place him on oral narcotics for pain control as necessary, and then he will be eligible for discharge home. PETER/MINERVA Voice ID: [id number] Report ID: [id number]
--- OUTSIDE RECORDS SUMMARY | 2021-02-28 13:42 | XMS REPORT | Continuity of Care Document ---
:1970 Author Organization [facility] t Address [address] [place] [address] [address] [place] [address] Care Team Providers Name Role Phone Collettekaitlin Sharath Attending Clinician Unavailable Physician, Primary or Family Admitting Clinician Unavailabl e Payers Payer Name Policy Type Policy Number Effective Date Expiration Date S ource Problems This patient has no known problems. Allergies, Adverse Reactions, Alerts Allergy Allergy Status Severity Reaction(s) Onset Inactive Treating Comm ents Source Name Type Date Date Clinician No Known DA Active U [facility] Allergie 8-18 Clear s 00:00: [address] Medications This patient has no known medications. Procedures This patient has no known procedures. Encounters Start End Encounter Admission Attending Care Care Encounter Source Date/Time Date/Time Type Type Clinicians Facility Department ID 2021-02-22 Inpatient EL Voloyiannis [facility] DAYS [id number] [facility] 13:30:00 , Loraine [id number] [facility] 2021-02-23 2021-02-23 Outpatient EL Voloyiannis [facility] DAYS [id number] [facility] 05:20:00 05:20:00 , Loraine [id number] [facility] Results Test Description Test Time Test Comments Results Result Comments Source SURGICAL PATH SPECIMENS 2021-02-27 14:48:00 Test Item Value Reference Range Interpretation Comme nts SURGICAL RUN PATH DATE: 02/27/21 [place] - LAB PAGE 1 RUN SPECIMENS TIME: 1448 Specimen Inquiry RUN USER: INTERFACE (test code = S) MARSHALL ENT: VILLEGASASHLEY LOC: [facility] U #: [id number] AGE/SX: 50/M ROOM: RE02/23/21REG DR: Loraine Espinoza : 70 BED : DIS: [place] [facility] [place]: SPEC #: [id number] PASSENGER REPRESENTATIVE: 02/24/21 STATUS: GODWIN REJanneth #: [id number] MARGARITA: - SUBM DR: Loraine Espinoza MD ENTERED: 02/24/21 SP TYPE: AMBRIZ RG SPEC OTHR DR: No Primary or Family PhysicianORDERED: [id number] CODES: [id number] - RECTUM, NOS COPIES TO: No Primary or Family Physician Loraine Espinoza MD [address] [place] [address] [email or web address] PROCEDURES: [id number] (-100) TISSUES: RECTUM, NOS - POLYP FINAL DIAGNOSIS Rectum, polypec gunnar: Tubulovillous adenoma. GROSS AND MICROSCOPIC GROSS EXAMINATION: Received in for radha labeled rectal polyp is a 2.1 x 1.7 x 1 cm lobulated gardner polyp, the base of the polyp excision is inked green. Submitted (A)-(C). MICROSCOPIC EXAMINATION: Sections of the rectal lesion reveal a tubulovillous adenoma. The lesion is pedunculated and is not seen to involve the inked st alk margin. --- Signed Harlan Louie DO 02/27/21 1448 END OF REPORT BASIC METABOLIC [id number] 12:38:00 Test Item Value Reference Range Interpretation Comments SODIUM (test code = NA) 140 mEq/L 134-147 N POTASSIUM (test code = 3.4 mEq/L 3.4-5.0 N K) CHLORIDE (test code = 106 mEq/L 100-108 N CL) CARBON DIOXIDE (test 27 mEq/l 21-33 N code = CO2) ANION GAP (test code = 10 0-20 N GAP) GLUCOSE (test code = 190 mg/dL 70-110 H GLU) BLOOD UREA NITROGEN 9 mg/dL 7-18 N (test code = BUN) GLOMERULAR FILTRATION 89.3 90-95 L Units of measure = RATE (test code = GFR) ml/mi n/1.73 m2 CREATININE (test code = 0.9 mg/dL 0.6-1.3 N CREAT) CALCIUM (test code = 9.0 mg/dL 8.0-10.5 N CA) COVID 19 Asymptomatic IH [id number] 15:53:00 Test Item Value Reference Range Interpretation Comments COVID 19 Asymptomatic Negative Negative A nega tive result is IH AG (test code = presumpti ve and should COVNONPUIAG) be confirmedwit h an FDA authorized mole cular assay, if neces janet forpatient alfonso gement.A positive result does not rule out co-inf ections withother patho gens.This test detects gregg th viable (live) and non-viable,SARS -CoV, and SARS-CoV-2. Sigifredo t performance dep ends on theamount of vi crystal (antigen) in th e sample.This sigifredo t has not been FDA cleare d or approved; the t est hasbeen authori zed by FDA under an Em ergency Use Authorizati on(EUA) for use by labo ratories certified under the CLIA thatmeet the requirements to perform moderate, high or waivedcomplexit y tests. PROTHROMBIN [id number] 15:34:00 Test Item Value Reference Range Interpretation Comments PROTHROMBIN TIME 12.8 SECONDS 9.3-12.9 N PATIENT (test code = PTP) INTERNATIONAL NORMAL 1.2 0.8-1.2 N TARGET RATIO (test code = INR BY IN DICATION INR) Indication INR1. Prophyl axis of venous thrombos is 2.0 - 3. 0 (orthopedic dawson minh), Prophylaxis of venous thrombos is (other than hig h-risk surgery), Evelyn tment of Deep Vein Thrombosis/Pulm onary Embolism, Preve ntion of systemic emb olism - Tissue heart va lves, Acute Myocardia l Infarction (to prevent systemic embo lism), Valvular heart disease, Atri al Fibrillation, Bileaflet mecha nical valve in aortic position.2. Mec hanical prosthetic valv es (high risk), 2.5 - 3.5 Presence of Lupus Anticoagu lant or Antiphospholi pid Antibodies, Pre vention of systemic e mbolism - Acute Myocard ial Infarction (t o prevent recurre nt infarct). THROMBOPLASTIN TIME [id number] 15:34:00 Test Item Value Reference Range Interpretation Comments THROMBOPLASTIN TIME 33.0 Seconds 25.0-39.5 N Ther apeutic PARTIAL (test code = Range: 50.4 - 88.3 PTT) Seconds Effective 10/21/2018 BASIC METABOLIC [id number] 15:30:00 Test Item Value Reference Range Interpretation Comments SODIUM (test code = NA) 142 mEq/L 134-147 N POTASSIUM (test code = 3.9 mEq/L 3.4-5.0 N K) CHLORIDE (test code = 110 mEq/L 100-108 H CL) CARBON DIOXIDE (test 27 mEq/l 21-33 N code = CO2) ANION GAP (test code = 9 0-20 N GAP) GLUCOSE (test code = 71 mg/dL 70-110 N GLU) BLOOD UREA NITROGEN 12 mg/dL 7-18 N (test code = BUN) GLOMERULAR FILTRATION 89.3 90-95 L Units of measure = RATE (test code = GFR) ml/mi n/1.73 m2 CREATININE (test code = 0.9 mg/dL 0.6-1.3 N CREAT) CALCIUM (test code = 9.2 mg/dL 8.0-10.5 N CA) CBC W/AUTO [id number] 15:20:00 Test Item Value Reference Range Interpretation Comments WHITE BLOOD CELL (test code = 6.9 x10 3/uL 4.5-11.0 N WBC) RED BLOOD CELL (test code = 5.09 x10 6/uL 4.00-5.60 N RBC) HEMOGLOBIN (test code = HGB) 15.4 g/dL 12.5-16.9 N HEMATOCRIT (test code = HCT) 46.3 % 37.5-50.7 N MEAN CELL VOLUME (test code = 91.0 fL 81.0-99.0 N MCV) MEAN CELL HGB (test code = MCH) 30.3 pg 27.0-33.0 N MEAN CELL HGB CONCETRATION 33.3 g/dL 33.0-37.0 N (test code = MCHC) RED CELL DISTRIBUTION WIDTH CV 12.6 % 11.5-14.5 N (test code = RDW) RED CELL DISTRIBUTION WIDTH SD 41.3 fL 37.0-54.0 N (test code = RDW-SD) PLATELET COUNT (test code = 280 x10 3/uL 150-400 N PLT) MEAN PLATELET VOLUME (test code 10.5 fL 7.0-9.0 H = MPV) NEUTROPHIL % (test code = NT%) 57.0 % 56.0-77.0 N IMMATURE GRANULOCYTE % (test 0.3 % 0.0-2.0 N code = IG%) LYMPHOCYTE % (test code = LY%) 27.7 % 14.0-32.0 N MONOCYTE % (test code = MO%) 9.2 % 4.8-9.0 H EOSINOPHIL % (test code = EO%) 5.2 % 0.3-3.7 H BASOPHIL % (test code = BA%) 0.6 % 0.0-2.0 N NUCLEATED RBC % (test code = 0.0 % 0-0 N NRBC%) NEUTROPHIL # (test code = NT#) 3.91 x10 3/uL 2.0-7.6 N IMMATURE GRANULOCYTE # (test 0.02 x10 3/uL 0.00-0.03 N code = IG#) LYMPHOCYTE # (test code = LY#) 1.90 x10 3/uL 1.0-3.8 N MONOCYTE # (test code = MO#) 0.63 x10 3/uL 0.1-0.8 N EOSINOPHIL # (test code = EO#) 0.36 x10 3/uL 0.0-0.2 H BASOPHIL # (test code = BA#) 0.04 x10 3/uL 0.0-0.2 N NUCLEATED RBC # (test code = 0.00 x10 3/uL 0.0-0.1 N NRBC#) MANUAL DIFF REQUIRED (test code NO = MDIFF) - XR CHEST 2 [id number] 00:00:[facility] 1970 Sex: M FAX: Telma Mendoza [phone] [place]: St: PRE FAX: Glory Valdes [phone] Name: ASHLEY VILLEGAS [facility] : 1970 Age/S: 50/M [address] [place] [address] Unit #: [id number] Loc: [place] [address] Phys: Telma Giron MD Acct: [id number] Dis Date: Status: [place] [facility] [place]ONE#: [phone] Exam Date: 02/22/2021 1509 FAX #: [phone] Reason: PREOP EXAMS: CPT CODE: [id number] XR CHEST 2 V [id number] PROCEDURE INFORMATION: Exam: XR Chest Exam date and time: 02/22/2021 2:38 PM Age: 50 years old Clinical indication: Pre-operative exam; Cardiovascular screening and respiratory screening exam; Additional info: Preop TECHNIQUE: Imaging protocol: XR of the chest. Views: 2 views. PA and Lateral COMPARISON: No relevant prior studies available. FINDINGS: Lungs: No consolidation. Pleural spaces: No pleural effusion. Heart/Mediastinum: The heart and vascular markings are within limits of normal. There appears to be widening of the upper mediastinum. Bones/joints: No gross acute findings. IMPRESSION: No acute cardiopulmonary findings There appears to be wideningof the upper mediastinum. This may represent underlying thoracic aortic aneurysm. Furtherevaluation with CTA would be helpful. at 1533 Reported and signed by: Coreen Saavedra D.O. CC: Telma Giron MD; Loraine Espinoza MD Technologist: RT Octavia(R) Trnscrd Date/Time/By: 02/22/2021 (1533) : By: [email or web address] Orig Print D/T: S: 02/22/2021 (1869) PAGE 1 Signed Report
[2021-02-28 14:26] VITALS: BMI 33.7
[2021-02-28] MEDS: carvediloL 25 MG TAB PO SCH (16:31)
[2021-02-28] MEDS: HYDROMORPHONE HCL 0.5 MG/0.5 ML INJ IV PRN ×2 (16:32→21:05)
[2021-02-28] MEDS ORDERED: carvediloL 25 MG TAB PO SCH (18:00)
[2021-02-28] MEDS: metroNIDAZOLE 500 MG TABLET PO SCH (21:04)
[2021-02-28] MEDS: MONTELUKAST 10 MG TAB PO SCH (21:05)
[2021-03-01] MEDS: D5 0.45 NS 1,000 ML IV SCH ×4 (04:39→21:32)
[2021-03-01] MEDS: HYDROMORPHONE HCL 0.5 MG/0.5 ML INJ IV PRN (04:50)
[2021-03-01] MEDS: carvediloL 25 MG TAB PO SCH ×2 (05:11→17:38)
[2021-03-01] MEDS: LEVOTHYROXINE SOD 0.075 MG TAB PO SCH (05:12)
[2021-03-01 05:23] LABS: Basophils % 0.2 % (0-1.3); Hematocrit 40.8 % (39.6-49.0); Lymphocytes % 8.2 % (15.3-44.8); RBC Red Blood Cell Count 4.67 M/uL (4.33-5.43)
[2021-03-01 05:45] LABS: Potassium 3.9 mmol/L (3.5-5.1)
[2021-03-01] MEDS ORDERED: OPIUM/BELLADONNA SUPPOS (30-16.2 MG) PR SCH (09:00)
[2021-03-01] MEDS: BISACODYL 10 MG RECTAL SUPP PR SCH (09:00)
[2021-03-01] MEDS: PANTOPRAZOLE 40MG TABLET PO SCH (09:14)
[2021-03-01] MEDS: metroNIDAZOLE 500 MG TABLET PO SCH ×3 (09:14→21:29)
[2021-03-01] MEDS: MAGNESIUM HYDROXIDE 8% 30 ML PO SCH (09:14)
[2021-03-01 12:05] VITALS: O2SAT 93
[2021-03-01] MEDS: KETOROLAC 30 MG/ML INJ IV SCH ×2 (14:00→20:00)
[2021-03-01] MEDS: MONTELUKAST 10 MG TAB PO SCH (21:29)
[2021-03-01] MEDS ORDERED: HYDROCODONE/APAP 5/325 MG TAB PO PRN (22:30)
--- NOTE | 2021-03-01 22:47 | P.PN ---
Subjective Date of Service: 03/01/21 Chief Complaint: s/p radical nephrectomy POD#1 Subjective: Tolerating diet, Ambulating, Doing well, Other (+flatus) He expresses pain with movement, and he was concerned that he sat up wrong and may have "ripped something". Physical Examination - Vital Signs Temperature: 98.5 F Blood Pressure: 133/68 Pulse: 66 Respirations: 16 Pulse Ox (%): 93 - Physical Exam General: Alert, In no apparent distress, Oriented x3, Cooperative HEENT: Atraumatic Respiratory: Normal air movement Gastrointestinal: Soft and benign, Non-distended, No rebound, No guarding Neurological: Normal speech Urinary: Other (voiding x 2 since catheter removed this AM) - Studies Laboratory Data (last 24 hrs) 03/01/21 05:08: Sodium 140, Potassium 3.9, BUN 15, Creatinine 1.46 H, Glucose 136 H 03/01/21 05:08: WBC 11.70 H, Hgb 13.8, Hct 40.8, Plt Count 246 Medications List Reviewed: Yes Assessment And Plan - Plan 50yo obese gentleman s/p uncomplicated right laparoscopic radical nephrectomy POD#1 doing well - passing flatus, voiding, and tolerating his diet with pain controlled. Advance diet Decrease IVF to 84cc/hr IS 10x/hr Ambulate QID Toradol 15mg IV q6h [place] 5mg q4h PRN Plan tomorrow AM discharge if renal function remains stable Discharge Plan: Home Plan to discharge in: 24 Hours - Code Status/Comfort Care Code Status Assessed: Yes Code Status: Full Code Critical Care: No
[2021-03-02] MEDS: KETOROLAC 30 MG/ML INJ IV SCH ×2 (02:00→08:00)
[2021-03-02 04:06] LABS: Absolute Lymphocytes (CBC) 1.6 K/uL (0.7-4.9); Basophils % 0.5 % (0-1.3); Hematocrit 38.8 % (39.6-49.0); Lymphocytes % 21.7 % (15.3-44.8); MPV 8.2 fL (7.6-11.3); RBC Red Blood Cell Count 4.39 M/uL (4.33-5.43)
[2021-03-02 04:23] LABS: Potassium 3.7 mmol/L (3.5-5.1)
[2021-03-02] MEDS: LEVOTHYROXINE SOD 0.075 MG TAB PO SCH (06:25)
[2021-03-02] MEDS: carvediloL 25 MG TAB PO SCH (06:25)
[2021-03-02 08:12] VITALS: BP 128/79; TEMP 99.1
[2021-03-02] MEDS: BISACODYL 10 MG RECTAL SUPP PR SCH (09:00)
--- NOTE | 2021-03-02 09:39 | P.DS ---
Admission Date: 02/28/21 Discharge Date: 03/02/21 Reason for Admission: right renal mass Procedures: Right laparoscopic radical nephrectomy Brief History of Present Illness: 50-year-old gentleman with hypothyroidism, hypertension, and asthma who presented with a complex cystic right renal mass consistent with renal cell carcinoma. He underwent uncomplicated laparoscopic right radical nephrectomy on 02/28/2021. Hospital Course: He has done well postoperatively, using the incentive spirometer, pain controlled without the need for narcotics, Tylenol only, on the day of discharge, having bowel movements, tolerating his diet, and voiding without issue. Vital Signs/Physical Exam: Temp Pulse Resp BP Pulse Ox 99.1 F 70 17 128/79 93 03/02/21 08:00 03/02/21 08:00 03/02/21 08:00 03/02/21 08:00 03/02/21 08:00 General: Alert, In no apparent distress, Oriented x3, Cooperative HEENT: Atraumatic Respiratory: Normal air movement Cardiovascular: No edema Gastrointestinal: Soft and benign, Non-distended, No rebound, No guarding Musculoskeletal: No tenderness Other Physical/Emotional Findings: Incisions clean, dry, and intact Laboratory Data at Discharge: WBC 7.30 K/uL (4.3-10.9) D 03/02/21 03:06 Hgb 13.4 g/dL (13.6-17.9) L 03/02/21 03:06 Hct 38.8 % (39.6-49.0) L 03/02/21 03:06 Plt Count 210 K/uL (152-406) 03/02/21 03:06 Sodium 141 mmol/L (136-145) 03/02/21 03:06 Potassium 3.7 mmol/L (3.5-5.1) 03/02/21 03:06 BUN 14 mg/dL (7-18) 03/02/21 03:06 Creatinine 1.52 mg/dL (0.55-1.3) H 03/02/21 03:06 Glucose 89 mg/dL (74-106) 03/02/21 03:06 Total Bilirubin 0.3 mg/dL (0.2-1.0) 02/24/21 11:15 AST 13 U/L (15-37) L 02/24/21 11:15 ALT 36 U/L (12-78) 02/24/21 11:15 Alkaline Phosphatase 102 U/L (45-117) 02/24/21 11:15 Home Medications: Pantoprazole [Protonix Tab*] 40 mg PO DAILYAC #30 tab 07/27/19 Carvedilol [Coreg] 25 mg PO DAILY 02/24/21 Levothyroxine Sodium [Levothyroxine] 25 mcg PO DAILY 02/24/21 Montelukast [Singulair*] 10 mg PO DAILY 02/24/21 metroNIDAZOLE [Flagyl*] 1 tab PO Q8H 02/28/21 Hydrocodone 5/APAP 325 [[place] 5/325*] 1 tab PO Q6H PRN #12 tab 03/02/21 Levothyroxine [Synthroid*] 0.075 mg PO DAILYAC tab 03/02/21 Montelukast [Singulair*] 10 mg PO BEDTIME tab 03/02/21 Pantoprazole [Protonix Tab*] 40 mg PO ACB tab 03/02/21 carvediloL [Coreg*] 25 mg PO BID 6AM 6PM tab 03/02/21 metroNIDAZOLE [Flagyl*] 500 mg PO TID tablet 03/02/21 New Medications: Hydrocodone 5/APAP 325 [[place] 5/325*] 1 tab PO Q6H PRN #12 tab PRN Reason: Pain Scale 5-7 (Moderate) Physician Discharge Instructions: Avoid straining or heavy lifting - nothing greater than about 25 pounds. You may shower after 3-5 days from surgery, but no tub baths or hot tubs or beaches. Notify me if any fever (temperature greater than 100.4 Fahrenheit), intractable nausea or vomiting, increasing pain uncontrolled by the pain medications, or other unusual signs or symptoms. Follow-up with me in the urology clinic in 1-2 weeks to discuss the pathology of the kidney tumor removed. All the best! WBR Diet: Renal Activity: No lifting more than 25 pounds Followup: Miguelito Maurice [ACTIVE - CAN ADMIT] - Time spent managing pt's care (in minutes): 20
[2021-03-02] MEDS: MAGNESIUM HYDROXIDE 8% 30 ML PO SCH (09:48)
[2021-03-02] MEDS: metroNIDAZOLE 500 MG TABLET PO SCH (09:48)
[2021-03-02] MEDS: PANTOPRAZOLE 40MG TABLET PO SCH (09:48)
== END 2021-03-02 13:41 | disposition home or self-care (01) | DRG 658 ==
LOC: OR 06:12 → 2ND 13:40
PROVIDERS: ADMIT Urology; ATTEND Urology
PROC: 0TT00ZZ Resection of Right Kidney, Open Approach (ICD-10-PCS; principal; 2021-02-28 07:30)
DX: C64.1 Malignant neoplasm of right kidney, except renal pelvis (principal); I10 Essential (primary) hypertension; E03.9 Hypothyroidism, unspecified; K21.9 Gastro-esophageal reflux disease without esophagitis; J45.909 Unspecified asthma, uncomplicated
CPT/HCPCS: 36415; 80048; 80076; 81003; 81015; 85025; 86850; 86900; 86901; 87086; 87088; 88307; 94010; J0690; J1100; J1170; J2250; J2405; J2704; J2710; J3010; J7120; J7799

== ENCOUNTER 2022-12-06 15:20 | Observation (INO) | payer BC ==
--- OUTSIDE RECORDS SUMMARY | 2022-12-06 15:23 | XMS REPORT | Continuity of Care Document ---
:1970 Author Organization [facility] t Address [address] [place] [address] Care Team Providers Name Role Phone ELVIS WHEAT Primary Care Physician Unavailable PERCY GARRETT Attending Clinician Unavailable Percy Canchola Attending Clinician Loraine Espinoza Attending Clinician Unavailable PERCY GARRETT Admitting Clinician Unavailable Physician, No Primary or Family Admitting Clinician Unavaila ble Payers Payer Name Policy Type Policy Number Effective Date Expiration Date Elodia yates [facility] [id number] 2017 00:00:00 Blue [employer] 6 [id number] Common Spiri t Blue [facility] - [facility] Problems Condition Condition Condition Status Onset Resolution Last Treating Co mments Source Name Details Category Date Date Treatment Clinician Date [id number] 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 Disorder Renal Problem Common of kidney mass, Spirit and/or right - [facility] ureter 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 [id number] Right Problem Common upper Spirit quadrant - [facility] pain 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 [id number] Erectile Problem Comm on dysfunctio Spirit n, - [facility] unspecifie d [facility] dysfunctio Medica l n type Center Renal mass Renal mass Problem C ommon Spirit - [facility] [id number] S/p Problem Common nephrectom Spirit y - [facility] Allergies, Adverse Reactions, Alerts Allergy Allergy Status Severity Reaction(s) Onset Inactive Treating Comm ents Source Name Type Date Date Clinician No Known DA Active U [facility] Allergie 8-18 Clear s 00:00: Ruth 00 [facility] No Known DA Active U [facility] Allergie 8-18 Clear s 00:00: Ruth 00 [facility] NO KNOWN Drug Active Univers ALLERGIE Class ity of S [facility] Social History Social Habit Start Date Stop Date Quantity Comments Source History of Common Spirit - Tobacco Use [facility] Exposure to 2022-09-14 2022-09-24 Not sure [facility] SARS-CoV-2 00:00:00 16:00:00 [facility] [place] Tobacco use and 2021-01-30 2021-01-30 User of smokeless Un iversity of exposure 00:00:00 00:00:00 tobacco [facility] Sex Assigned At [birth year] Universit y of 00:00:00 00:00:00 [facility] Smoking Status Start Date Stop Date Source Never smoked tobacco [facility] Medications Ordered Filled Start Stop Current Ordering Indication Dosage Frequency Signature Comments Components Source Medication Medication Date Date Medication? Clinician (SIG) Name Name cloNIDine 2022- No .1mg 0.1 mg, Univ ers (CATAPRES) 09-24 Oral, ity of tablet 0.1 20:45: 20:57 ONCE, 1 Jelani as mg 00 :00 dose, On Medical Mon Branch 09/24/22 at 1545, STAT Pantoprazol Pantoprazol No 1{table QD Pantoprazo e Sodium 40 e Sodium 40 t} le Sodium MG MG 40 MG Levothyroxi Levothyroxi No QD Levothyrox ne Sodium ne Sodium ine Sodium 25 MCG 25 MCG 25 MCG Carvedilol Carvedilol No 1{table BID Carvedilol 25 MG 25 MG t_with_ 25 MG food} Singulair Singulair No 1{table QD Singulair 10 MG 10 MG t} 10 MG Carvedilol Carvedilol No 1{table BID Carvedilol 25 MG 25 MG t_with_ 25 MG food} Mobic 15 MG Mobic 15 MG No 1{table QD Mobic 15 t} MG Levothyroxi Levothyroxi No QD Levothyrox ne Sodium ne Sodium ine Sodium 75 MCG 75 MCG 75 MCG Cialis 10 Cialis 10 No 1{table Cialis 10 MG MG t_as_ne MG eded} Singulair Singulair No 1{table QD Singulair 10 MG 10 MG t} 10 MG Pantoprazol Pantoprazol No 1{table QD Pantoprazo e Sodium 40 e Sodium 40 t} le Sodium MG MG 40 MG Vital Signs Vital Name Observation Time Observation Value Comments Source Systolic blood 2022-09-24 21:00:00 153 [facility]Hg[facility] Diastolic blood 2022-09-24 21:00:00 98 mm[Hg] [facility] Heart rate 2022-09-24 21:00:00 77 /min [facility] Respiratory rate 2022-09-24 21:00:00 18 /min [facility] Oxygen saturation in 2022-09-24 21:00:00 95 /min [facility] Arterial blood by [facility] Pulse oximetry Branch Body temperature 2022-09-24 19:43:00 37 Tamie [facility] Body weight 2022-09-24 19:43:00 125.646 kg [facility] BMI 2022-09-24 19:43:00 33.72 kg/m2 [facility] height 2022-07-04 09:00:00 74 [in_i] [facility] weight 2022-07-04 09:00:00 270 [lb_av] [facility] temperature 2022-07-04 09:00:00 97.9 [degF] [facility] bmi 2022-07-04 09:00:00 34.66 kg/m2 [facility] oximetry 2022-07-04 09:00:00 97 % [facility] blood pressure 2022-07-04 09:00:00 142 mm[Hg] [facility] systolic [facility] blood pressure 2022-07-04 09:00:00 86 mm[Hg] [facility] diastolic [facility] respiratory rate 2021-12-13 09:15:00 16 /min Comm on [facility] blood pressure 2021-12-13 09:15:00 136 mm[Hg] [facility] [place] [place] - systolic [facility] blood pressure 2021-12-13 09:15:00 88 mm[Hg] [facility] diastolic [facility] height 2021-12-13 09:15:00 74 [in_i] [facility] weight 2021-12-13 09:15:00 278.8 [lb_av] [facility] temperature 2021-12-13 09:15:00 98.5 [degF] [facility] bmi 2021-12-13 09:15:00 35.79 kg/m2 [facility] oximetry 2021-12-13 09:15:00 99 % [facility] Procedures Procedure Date / Time Performed Performing Clinician Sourc e XR CHEST 1 VW 2022-09-24 20:36:11 Percy Garrett [facility] TROPONIN I 2022-09-24 20:10:00 Percy Garrett [facility] COMP. METABOLIC PANEL 2022-09-24 20:10:00 Percy Garrett [facility] ([id number]) [facility] CBC WITH DIFF 2022-09-24 20:10:00 Percy Garrett [facility] NOTICE OF PRIVACY 2022-09-24 19:39:29 Doctor Unassigned, No Univ [facility] PRACTICES Name Medical Branch Encounters Start End Encounter Admission Attending Care Care Encounter Source Date/Time Date/Time Type Type Clinicians Facility Department ID 2021-12-13 Outpatient STLMLC STLMLC [id number] Common 09:02:03 [id number] Spirit [facility] 2022-09-24 2022-09-24 Emergency X [facility] ERT [id number] Univers 14:44:00 17:38:00 PERCY ity [facility] 2022-09-24 2022-09-24 Emergency [facility] [id number] Univers 14:44:00 17:38:00 Percy Clifton SEDALIA [id number] i ty [facility] [id number] [facility] [id number] [place] [id number] Branch 2022-07-04 2022-07-04 OFFICE STLMLC STLMLC [id number] Co mmon 00:00:00 00:00:00 VISIT EST Spir it PT LEVEL 3 - [facility] 2021-12-13 2021-12-13 OFFICE STLMLC STLMLC [id number] Co mmon 00:00:00 00:00:00 VISIT Spirit ESTAB PT - [facility] LEVEL 5 [facility] 2021-02-23 2021-02-23 Inpatient ZACHARIAH Espinoza [facility]ACL DAYS G001 [id number] [facility] 05:20:00 05:20:00 , Theodoros 49 Cl [facility] Results Test Description Test Time Test Comments Results Result Comments Source TROPONIN I 2022-09-24 20:47:32 Test Item Value Reference Range Interpretation Comme nts TROPONIN I (test code = 6840449992) 0.003 ng/mL <=0.034 JAYLA (test code = JAYLA) Reference (Normal) Range (defined by the 99th percentile reference limit): <= 0.034 ng/mL Note: Cardiac troponin begins to rise 3-4 hours after the onset of ischemia. Repeat in 4-6 hours if the sample was drawn within 3-4 hours of the onset of the symptom and found normal. Diagnosis of myocardial injury is made with acute changes in cTn concentrations with at least one serial sample above the 99th percentile upper reference limit (URL), taken together with the patient's clinical presentation. Biotin has been reported to cause a negative bias, interpret results relative to patient's use of biotin. Lab Interpretation (test code = Normal 79848-5) [facility]. METABOLIC PANEL (09004)2022-09-24 20:36:11 Test Item Value Reference Range Interpretation Comments NA (test code = 142 mmol/L 135-145 3631990212) K (test code = 4.5 mmol/L 3.5-5.0 5503734034) CL (test code = 106 mmol/L 98-108 3428622337) CO2 TOTAL (test code = 27 mmol/L 23-31 7081465433) AGAP (test code = 9 2-16 1813385890) BUN (test code = 17 mg/dL 7-23 6229687421) GLUCOSE (test code = 110 mg/dL 70-110 1623772445) CREATININE (test code = 1.48 mg/dL 0.60-1.25 H 5923848566) TOTAL BILI (test code = 0.6 mg/dL 0.1-1.1 9898039014) CALCIUM (test code = 8.9 mg/dL 8.6-10.6 5025843032) T PROTEIN (test code = 7.6 g/dL 6.3-8.2 5103542763) ALBUMIN (test code = 4.1 g/dL 3.5-5.0 9121935844) ALK PHOS (test code = 110 U/L 34-122 9696899862) ALTv (test code = 30 U/L 5-50 1742-6) AST(SGOT) (test code = 22 U/L 13-40 3720735709) eGFR (test code = 49.9 mL/min/1.73m2 4754256619) JAYLA (test code = JAYLA) Association of Glomerular Filtration Rate (GFR) and Staging of Kidney Disease* + --+ --+ ------+| GFR (mL/min/1.73 m2) ?| With Kidney Damage ?| ?Without Kidney Damage+ --------+ --------+ +| ?>90 ?| ?Stage one ?| ? Normal ?+ ---+ ---+ -------+| ?60-89 ?| ?Stage two ?| ? Decreased GFR ? + --+ --+ ------+| ?30-59 ?| ?Stage three ?| ? Stage three ? + --+ --+ ------+| ?15-29 ?| ?Stage four ? | ? Stage four ?+ ---+ ---+ -------+| ?<15 (or dialysis) ? ?| ?Stage five ? | ? Stage five ?+ ---+ ---+ -------+ *Each stage assumes the associated GFR level has been in effect for at least three months. ?Stages 1 to 5, with or without kidney disease, indicate chronic kidney disease. Notes: Determination of stages one and two (with eGFR >59mL/min/1.73 m2) requires estimation of kidney damage for at least three months as defined by structural or functional abnormalities of the kidney, manifested by either:Pathological abnormalities or Markers of kidney damage (including abnormalities in the composition of the blood or urine or abnormalities in imaging tests). Lab Interpretation Abnormal (test code = 67516-3) [facility] WITH [id number] 20:30:50 Test Item Value Reference Range Interpretation Comments WBC (test code = 5.91 See_Comment [Automated message] 9551-2) The system [employer] generated this result transmitted ref erence range: 4.20 - 1 0.70 10*3/?L. The re ference range was not u sed to interpret this result as normal/abnor mal. RBC (test code = 5.01 See_Comment [Automated message] 588-8) The system [employer] generated this result transmitted ref erence range: 4.26 - 5 .52 10*6/?L. The re ference range was not u sed to interpret this result as normal/abnor mal. HGB (test code = 14.8 g/dL 12.2-16.4 718-7) HCT (test code = 44.6 % 38.4-49.3 4544-3) MCV (test code = 89.0 fL 81.7-95.6 787-2) MCH (test code = 29.5 pg 26.1-32.7 785-6) MCHC (test code = 33.2 g/dL 31.2-35.0 786-4) RDW-SD (test code 41.8 fL 38.5-51.6 = 15413-9) RDW-CV (test code 12.8 % 12.1-15.4 = 788-0) PLT (test code = 225 See_Comment [Automated message] 777-3) The system whic h generated this result transmitted ref erence range: 150 - 32 8 10*3/?L. The re ference range was not u sed to interpret this result as normal/abnor mal. MPV (test code = 10.2 fL 9.8-13.0 19239-0) NRBC/100 WBC (test 0.0 See_Comment [Automat ed message] code = 6329997213) The syste m which generated this result transmitted ref erence range: 0.0 - 10 .0 /100 WBCs. The refer ence range was not u sed to interpret this result as normal/abnor mal. NRBC x10^3 (test See_Comment [Automated message] code = 9305416812) The syste m which generated this result transmitted ref erence range: 10*3/?L. The reference range was not used to interpr et this result as normal/abnormal . GRAN MAT (NEUT) % 58.4 % (test code = 770-8) IMM GRAN % (test 0.50 % code = 2909298771) LYMPH % (test code 25.5 % = 736-9) MONO % (test code 7.8 % = 5905-5) EOS % (test code = 7.1 % 713-8) BASO % (test code 0.7 % = 706-2) GRAN MAT 3.45 10*3/uL 1.99-6.95 x10^3(ANC) (test code = 5095908450) IMM GRAN x10^3 0.03 10*3/uL 0.00-0.06 (test code = 7991617219) LYMPH x10^3 (test 1.51 10*3/uL 1.09-3.23 code = 731-0) MONO x10^3 (test 0.46 10*3/uL 0.36-1.02 code = 742-7) EOS x10^3 (test 0.42 10*3/uL 0.06-0.53 code = 711-2) BASO x10^3 (test 0.04 10*3/uL 0.01-0.09 code = 704-7) [facility] BranchSURGICAL PATH [id number] 14:48:00 Test Item Value Reference Range Interpretation Comments SURGICAL PATH SPECIMENS (test code = S) RUN DATE: 02/27/21 [place] - LAB PAGE 1 RUN TIME: 1448 Specimen Inquiry RUN USER: INTERFACE MARSHALL ENT: ASHLEY MCGHEE [facility] #: [id number] AGE/SX: 50/M ROOM: RE02/23/21[facility]: Loraine Espinoza : 70 BED: DIS: STATUS: ELICEO PINEDA TLOC: SPEC #: [id number] RECD: 02/24/21 STATUS: GODWIN ALVARADO #: [id number] MARGARITA: 02/23/21- SUBM DR: Loraine Espinoza MD ENTERED: 02/24/21 SP TYPE: SURG SPEC OTHR DR: No Primary or Family PhysicianORDERED: MARISA L4 48136 CODES: [id number] - RECTUM, NOS COPIES TO: No Primary or Family Physician Loraine Espinoza MD [address] [place] [address] [address] [place] [address] [email or web address] PROCEDURES: GM L4 69100 (02/24/21) TISSUES: RECTUM, NOS - POLYP FINAL DIAGNOSIS Rectum, polypectomy: Tubulovillous adenoma. GROSS AND MICROSCOPIC GROSS EXAMINATION: Received in formalin labeled rectal polyp is a 2.1 x 1.7 x 1 cm lobulated gardner polyp, the base of the polyp excision is inked green. Submitted (A)-(C). MICROSCOPIC EXAMINATION: Sections of the rectal lesion reveal a tubulovillous adenoma. The lesion is pedunculated and is not seen to involve the inked stalk margin. --- Signed Elvis Louie DO 02/27/21 1448 END OF REPORT BASIC METABOLIC [id number] 12:38:00 Test Item Value Reference Range Interpretation [...] 8.0-10.5 N CA) COVID 19 Asymptomatic IH [id number] 15:53:00 Test Item Value Reference Range Interpretation [...] vi crystal (antigen) in th e sample.This sigiferdo t has not been FDA cleare d or approved; the t est hasbeen authori zed by FDA under an Em ergency Use Authorizati on(EUA) for use by labo ratories certified under the CLIA thatmeet the requirements to perform moderate, high or waivedcomplexit y tests. PROTHROMBIN [id number] 15:34:00 Test Item Value Reference Range Interpretation Comments PROTHROMBIN TIME 12.8 SECONDS 9.3-12.9 N PATIENT (test code = PTP) INTERNATIONAL NORMAL 1.2 0.8-1.2 N TARGET INR BY RATIO (test code = INDICATIO N Indication INR) INR1. Prophylax is of venous thrombos is 2.0 - 3.0 (orthoped ic surgery), Proph ylaxis of venous throm bosis (other than hig h-risk surgery), Treat ment of Deep Vein Thrombosis/Pulm onary Embolism, Preve ntion of systemic emb olism - Tissue heart va lves, Acute Myocardia l Infarction (to prevent systemic emboli sm), Valvular heart disease, Atrial Fibrillation, Bileaflet mecha nical valve in aortic position.2. Mec hanical prosthetic valv es (high risk), 2. 5 - 3.5 Presence of Lup us Anticoagulant o r Antiphospholipi d Antibodies, Pre vention of systemic emb olism - Acute Myocardia l Infarction (to prevent recurrent infar ct). THROMBOPLASTIN TIME [id number] 15:34:00 Test Item Value Reference Range Interpretation Comments THROMBOPLASTIN TIME 33.0 Seconds 25.0-39.5 N Therape utic Range: PARTIAL (test code = 50.4 - 88.3 Seconds PTT) Effective 10/21/2018 BASIC METABOLIC [id number] 15:30:00 Test Item Value Reference Range Interpretation [...] 9.2 mg/dL 8.0-10.5 N CA) CBC W/AUTO [id number] 15:20:00 Test Item Value Reference Range Interpretation [...] NO = MDIFF) - XR CHEST 2 [id number] 00:00:00 [facility] : 1970 Sex: M FAX: Telma Mendoza [phone] [place]: St: PRE FAX: Glory Coker [phone] -- Name: KYARA MCGHEE [place] : 1970 Age/S: 50/M [address] [place] [address] Unit #: [id number] Loc: [place] [address] Phys: Telma Giron MD Acct: [id number] Dis Date: Status: PRE [facility] [place] #: Exam Date: 02/22/2021 1501 FAX #: [phone] Reason: PREOP EXAMS: CPT CODE: [id number] XR CHEST 2 V 87317 PROCEDURE INFORMATION: Exam: XR Chest Exam date and time: 02/22/2021 2:38 PM Age: 50 years old Clinical indication: Pre-operative exam; Cardiovascular screening and respiratory screening exam; Additional info: Preop TECHNIQUE: Imaging protocol: XR of the chest. Views: 2 views. PA andLateral COMPARISON: No relevant prior studies available. FINDINGS: Lungs: No consolidation. Pleural spaces: No pleural effusion. Heart/Mediastinum: The heart and vascular markings are within limits of normal. There appears to be widening of the upper mediastinum. Bones/joints: No gross acute findings. IMPRESSION: No acute cardiopulmonary findings There appears to be widening of the upper mediastinum. This may represent underlying thoracic aortic aneurysm. Further evaluation with CTA would be helpful. at 1533 Reported and signed by: Coreen Saavedra D.O. CC: Telma Giron MD; Loraine Espinoza MD Technologist: RT Octavia(R) Trnscrd Date/Time/By: 02/22/2021 (153) : By: [email or web address] Orig Print D/T: S: 02/22/2021 (032) PAGE 1 Signed Report Notes Date/Time Note Provider Source 2021-02-23 14:22:00-00:00 [id number] [place] [address] PATIENT NAME: ASHLEY MCGHEE ADMIT DATE: 02/23 ACCOUNT NO: [id number] ROOM NO: AGE: 50 REPORT TYPE: OPERATIVE REPORT SEX: M ADMITTING PHYSICIAN: ATTENDING PHYSICIAN:Loraine Espinoza MD OPERATION DATE: 02/23/2021 PREOPERATIVE DIAGNOSES: Rectal polyp and right k idney cancer. POSTOPERATIVE DIAGNOSES: Rectal polyp and right kidney cancer. PROCEDURES: Transanal minimally invasive surgery , full-thickness resection of rectal polyp. SURGEON: Loraine Espinoza MD. HOMEMAKER COMPANION: Nara Vasques. ANESTHESIA: General. INTRAVENOUS FLUIDS: 700 mL. URINE OUTPUT: 100 mL. ESTIMATED BLOOD LOSS: Less than 5 mL. SPECIMEN: Rectal polyp. FINDINGS: Villous polyp of 3 x 3 cm with a narro w base at the left anterolateral rectal wall 12 cm proximal to the dentate line. DISPOSITION: Tolerated the p rocedure well, extubated in the operating room, and transferred to postanesthesia care unit in stabl e hemodynamic condition. COUNTS: Needle, sponge, and instrument count cor rect x2. INDICATIONS FOR PROCEDURE: The patient is a 50-y ear-old man who has been diagnosed with a nonresectable rectal polyp duri ng colonoscopy. He was also diagnosed at the same time with a right kidney cancer and he is set to undergo surgery next week. He also has a chronic history of thoracic aortic aneurysm and he reports that he has been stable a nd his control clerk has been following him and recently reported that he has no increase in the size of his aneurysm. The patient understands his condition; the opera tive procedure plan; the risk and benefit ratio, and the p otential risks for complications including, but not limited to pain, bleeding, infection, damage to surrounding organs and structures, need for further procedures and surg eries, need for further oncological surgeries, and perioperative cardiop ulmonary risks. Informed consent was obtained. All questions were answere d to his satisfaction. This PATIENT NAME: ASHLEY MCGHEE [id number] procedure requires a first assistnt for handling the accessorty laparoscopic instruments during the procedure and help with e xposure, suction and camera visualization and asssist during the rectal wall approximation. PROCEDURE IN DETAIL: The patient was brought to the operating room and placed on the operating room, placed on the operating t able in supine position. General endotracheal anesthesia was nigel anna successfully. Subsequently, he was placed in lithotomy position on candy canes. Perineum was prepped and draped in the usual standard sterile fashion. We performed manual dilation of the anal sphincter. We used a total of 10 mL of 0.25% Mar chris plain for local anesthesia and subsequently we dilated with all sizes of Hill-Mercado retractor and we inserted the GelPOINT path tunnel ed port and with a dilator and secured with 0 silk ties and the sutures in the perianal skin verge. Through this, we capped with a Gelport and th rough this, we placed an 8-mm applied AirSeal ConMed port and insufflated to 12 mmHg and we u sed a LigaSure L-hook device and under direct visualization with a 5-mm 45-degree camer a and the scope of bariatric length, we identified the polyp at the 12 cm pro ximal to the anal verge and using the LigaSure L-hook device, we hemostatica lly divided the polyp in a full-thickness fashion and o ff the rectum. We excised the polyp and brought out from the tunnel port after l igating the pneumorectum temporarily. The polyp was submitted to pathology. Subsequently, we recappe d the port and reinsufflated pneumoperitoneum and then we used a 2-0 Vicryl o n SH and we performed full-thickness approximation of the rectal wall edges with a total of 4 sutures. We used TK knot and approximated the edges by f inding the TK knot gun and a hemostatic clip was applied over each larson ture. The hemostasis was satisfactory. The approximation line was complete. The re was no bleeding. There was no fecal spillage. We evacuated the pneumorectum. We manuel kylah the Gelport. There was no bleeding. There was no need for dressing. The pa tient tolerated the procedure well and transferred to postanesthesia care unit in stable hemodynamic condition. IV antibiotics were given preoperativ mark and the patient will be discharged home on Flagyl. The polyp appeared to have a benign villous appearance. Dictated By: Loraine Espinoza MD WT: OP:BRIDGET/ROSALIND/LEONARDO Conf#: [id number]/DID#: [id number] Authenticated and Edited by Loraine madrigal MD On 02/24/21 9:06:10 AM at 0907 PATIENT NAME: ASHLEY MCGHEE [id number] 1817-08-18 15:02:00-00:00 [id number] [place] [address] PATIENT NAME: ASHLEY MCGHEE ADMIT DATE: ACCOUNT NO: [id number] ROOM NO: AGE: 50 REPORT TYPE: eELECTROCARDIOGRAM REPORT SEX: M ADMITTING PHYSICIAN: ATTENDING PHYSICIAN:Loraine Espinoza MD Order: [id number] Test Reason : PREOP Test Date/Time Stamp: SatFeb 22 2021 15:02:49 Blood Pressure : / mmHG Vent. Rate : 060 BPM Atrial Rate : 060 BPM P-R Int : 176 ms QRS Dur : 106 ms QT Int : 424 ms P-R-T Axes : 026 028 035 degree s QTc Int : 424 ms Normal sinus rhythm Normal ECG PRE_OP Confirmed by RENETTA MOORE MD ([id number]) on 02/23/20 3:26:26 PM Referred By: Loraine Espinoza Confirmed by :RENETTA MOORE MD at 1526 PATIENT NAME: ASHLEY MCGHEE [id number]"
[2022-12-06 16:21] LABS: Absolute Lymphocytes (CBC) 1.5 K/uL (0.7-4.9); Hematocrit 42.9 % (39.6-49.0); Lymphocytes % 21.8 % (15.3-44.8); MCV 87.1 fL (80-100); MPV 8.4 fL (7.6-11.3); RBC Red Blood Cell Count 4.93 M/uL (4.33-5.43)
[2022-12-06 16:24] LABS: Protime INR 1.07
[2022-12-06] MEDS ORDERED: ASPIRIN 81 MG CHEWABLE TABLET ONE ×2 (16:43→16:50)
[2022-12-06 16:46] LABS: Magnesium 2.1 mg/dL (1.6-2.4); Troponin High Sensitivity 6.5 pg/mL (<58.9)
--- NOTE | 2022-12-06 16:59 | RAD REPORT ---
EXAM DESCRIPTION: RADChest Single View12/06/2022 4:37 pm CLINICAL HISTORY: CHEST PAIN COMPARISON: Chest Pa And Lat (2 Views) dated 07/05/2022; Chest Single View dated 07/27/2019; Abdomen Acute Series dated 03/07/2017; Chest Single View dated 03/06/2017Chest Pa And Lat (2 Views) dated 07/05; Chest Single View dated 07/27/2019; Abdomen Acute Series dated 03/07/2017; Chest Single View natalie ed 03/06/2017 TECHNIQUE: Portable AP view of the chest. FINDINGS: The lungs are clear. Stable mild right basilar atelectasis. No pneumothorax or effusion. The cardiomediastinal contours are unchanged. IMPRESSION: No acute cardiopulmonary process.
[2022-12-06] MEDS ORDERED: NA CHLORIDE 0.9% 500 ML ONE (17:06)
[2022-12-06] MEDS ORDERED: HYDRALAZINE HCL 20 MG/ML VIAL ONE (17:53)
[2022-12-06] MEDS ORDERED: ALBUTEROL 2.5 MG/3 ML NEB SOL ONE (18:30)
[2022-12-06] MEDS ORDERED: METHYLPREDNISOLONE 125 MG INJ ONE (18:30)
[2022-12-06] MEDS ORDERED: IPRATROPIUM BROM 0.5MG/2.5ML ONE (18:30)
[2022-12-06] MEDS ORDERED: FAMOTIDINE 20 MG/2 ML VIAL IV ONE (18:30)
[2022-12-06] MEDS ORDERED: DIPHENHYDRAMINE 50 MG/ML VIAL ONE (18:30)
[2022-12-06] MEDS ORDERED: predniSONE 20 MG TAB ONE (18:30)
--- NOTE | 2022-12-06 18:37 | RAD REPORT ---
EXAM DESCRIPTION: CT - Head Brain Wo Cont - 12/06/2022 6:08 pm CLINICAL HISTORY: DIZZINESS COMPARISON: Head Brain Wo Cont dated 11/12/2016 TECHNIQUE: Noncontrast head CT images ad were obtained without IV contrast. Multiplanar reformats we re generated and reviewed. All CT scans are performed using dose optimization technique as appropriate and may include automated exposure control or mA/KV adjustment according to patient size. FINDINGS: No intracranial hemorrhage, mass, or edema. Midline structures are unremarkable. Normal ventricular caliber for age. Balderrama-white matter differentiation is preserved, without evidence of acute infarct. No abnormal extra- axial fluid collections. Mastoid air cells and visualized portions of the paranasal sinuses are clear. No acute bony findings. IMPRESSION: No evidence of an acute intracranial process.
--- NOTE | 2022-12-06 18:46 | ER ---
Nurse's Notes [facility] Name: Gael Vela Age: 52 yrs Sex: Male : 1970 Arrival Date: 12/06/2022 Time: 15:20 Bed 4 Private MD: Diagnosis: Angina pectoris, unspecified;Hypertensive heart disease without heart failure Presentation: 12/06 15:46 Chief complaint: Patient states: chest pain X 2 days , also had pain and numbness in iw his left arm, reports dizzy spells. Coronavirus screen: At this time, the client does not indicate any symptoms associated with coronavirus-19. Ebola Screen: Patient negative for fever greater than or equal to 101.5 degrees Fahrenheit, and additional compatible Ebola Virus Disease symptoms Patient denies exposure to infectious person. Patient denies travel to an Ebola-affected area in the 21 days before illness onset. No symptoms or risks identified at this time. Initial Sepsis Screen: Does the patient meet any 2 criteria? No. Patient's initial sepsis screen is negative. Does the patient have a suspected source of infection? No. Patient's initial sepsis screen is negative. Risk Assessment: Do you want to hurt yourself or someone else? Patient reports no desire to harm self or others. 15:46 Method Of Arrival: Ambulatory iw 15:46 Acuity: RENEA 2 iw 20:01 Onset of symptoms was December 06, 2022. rv Historical: - Allergies: 15:54 No Known Allergies; iw - Home Meds: 20:00 carvedilol Oral [Active]; levothyroxine oral [Active]; Protonix Oral [Active]; rv - PMHx: 15:54 acid reflux; borderline HTN; Headaches; Hypertension; Thyroid problem; iw - PSHx: 15:54 right kidney removed; iw - Immunization history:: Adult Immunizations unknown. - Social history:: Smoking status: Patient denies any tobacco usage or history of. Screenin:15 [facility] ED Fall Risk Assessment (Adult) History of falling in the last 3 months, ko1 including since admission No falls in past 3 months (0 pts) Confusion or Disorientation No (0 pts) Intoxicated or Sedated No (0 pts) Impaired Gait No (0 pts) Mobility Assist Device Used No (0 pt) Altered Elimination No (0 pt) Score/Fall Risk Level 0 - 2 = Low Risk Oriented to surroundings, Maintained a safe environment, Educated pt \T\ family on fall prevention, incl call for assistance when getting out of bed, Assessed \T\ reinforced patient's understanding of fall precautions, Provided non-skid footwear, Hourly rounding (assess needs \T\ fall precautionary measures) done, Used ambulatory aids as needed (educated on \T\ assisted with), Used gait belt as appropriate. Abuse screen: Denies threats or abuse. Denies injuries from another. Nutritional screening: No deficits noted. Tuberculosis screening: No symptoms or risk factors identified. Assessment: 16:15 General: Appears in no apparent distress. comfortable, Behavior is calm, cooperative, ko1 appropriate for age. Pain: Pain does not radiate. Pain began 2-3 days ago. Neuro: No deficits noted. Cardiovascular: Reports chest pain, shortness of breath. Respiratory: Reports shortness of breath on exertion. GI: No deficits noted. : No deficits noted. EENT: No deficits noted. Derm: No deficits noted. Musculoskeletal: No deficits noted. 17:00 Reassessment: No changes from previously documented assessment. Patient is alert, bp oriented x 3, equal unlabored respirations, skin warm/dry/pink. 18:00 Reassessment: No changes from previously documented assessment. Patient is alert, bp oriented x 3, equal unlabored respirations, skin warm/dry/pink. 19:00 Reassessment: Patient appears in no apparent distress at this time. Patient and/or jb4 family updated on plan of care and expected duration. Pain level reassessed. Patient is alert, oriented x 3, equal unlabored respirations, skin warm/dry/pink. 19:54 Reassessment: Patient appears in no apparent distress at this time. Patient and/or jb4 family updated on plan of care and expected duration. Pain level reassessed. Patient is alert, oriented x 3, equal unlabored respirations, skin warm/dry/pink. Vital Signs: 15:46 BP 153 / 101; Pulse 89; Resp 16; Temp 98.1; Pulse Ox 98% on R/A; iw 16:15 BP 165 / 106; Pulse 65; Resp 18; Pulse Ox 99% on R/A; ko1 17:34 BP 163 / 101; Pulse 65; Resp 16; Pulse Ox 100% ; ko1 17:53 BP 161 / 103; Pulse 66; Resp 16; Pulse Ox 100% ; ko1 18:44 BP 164 / 106; Pulse 64; Resp 14; Pulse Ox 99% ; bp 19:54 BP 156 / 102; Pulse 71; Resp 13; Pulse Ox 98% on NC; jb4 ED Course: 15:22 Patient arrived in ED. ts1 15:26 Bryant Hansen PA is PHCP. cp 15:26 Otis Crain DO is Attending Physician. cp 15:54 Triage completed. iw 15:55 Berenice Fox, RN is Primary Nurse. iw 16:12 Basic Metabolic Panel Sent. bc6 16:12 CBC with Diff Sent. bc6 16:12 Magnesium Sent. bc6 16:12 NT PRO-BNP Sent. bc6 16:12 PT-INR Sent. bc6 16:12 Inserted saline lock: 20 gauge in right antecubital area, using aseptic technique. bc6 16:15 Patient maintains SpO2 saturation greater than 95% on room air. ko1 16:15 Patient has correct armband on for positive identification. Placed in gown. Bed in low ko1 position. Call light in reach. Client placed on continuous cardiac and pulse oximetry monitoring. NIBP monitoring applied. counterperson on. 16:39 XRAY Chest (1 view) In Process Unspecified. EDMS 18:10 CT Head Brain wo Cont In Process Unspecified. EDMS 18:45 Samantha Santillan PA-C is Hospitalizing Provider. cp 20:00 No provider procedures requiring assistance completed. Patient admitted, IV remains in rv place. 20:00 Arm band placed on right wrist. rv Administered Medications: 16:45 Drug: Aspirin PO Chewable Tablet 324 mg Route: PO; ko1 20:03 Follow up: Response: No adverse reaction; Marked relief of symptoms rv 17:03 Drug: NS 0.9% IV 500 ml Route: IV; Rate: bolus; Site: right antecubital; ko1 20:03 Follow up: IV Status: Completed infusion; IV Intake: 500ml rv 17:49 Drug: hydrALAZINE IVP 5 mg Route: IVP; Site: right antecubital; bp 20:03 Follow up: Response: No adverse reaction; Marked relief of symptoms rv 18:44 Drug: diphenhydrAMINE IVP 50 mg Route: IVP; Site: right forearm; bp 20:03 Follow up: Response: No adverse reaction; Marked relief of symptoms rv 18:44 Drug: MethylPrednisoLONE IVP 125 mg Route: IVP; Site: right forearm; bp 20:03 Follow up: Response: No adverse reaction; Marked relief of symptoms rv 18:44 Drug: Famotidine IVP 20 mg Route: IVP; Site: right antecubital; bp 20:03 Follow up: Response: No adverse reaction; Marked relief of symptoms rv 18:44 Drug: DuoNeb Nebulize (2.5 mg - 0.5 mg) 3 ml Route: Nebulizer; bp 20:02 Follow up: Response: No adverse reaction; Marked relief of symptoms rv Medication: 16:15 VIS not applicable for this client. ko1 Intake: 20:03 IV: 500ml; Total: 500ml. rv Outcome: 18:46 Decision to Hospitalize by Provider. cp 20:01 Admitted to Med/surg accompanied by tech, room 205, with oxygen, with chart, Report rv called to [employer]AEL PAINTING 20:01 Condition: good 20:01 Instructed on the need for admit. 20:03 Patient left the ED. rv Signatures: Dispatcher [employer] EDMS Berenice Fox, RN RN Bryant Goldberg PA PA cp Pavan Kilpatrick RN RN jb4 Bernardo Stone RN RN bp Vicente, Ronaldo, RN RN rv Paula Plummer RN RN ko1 Luh Pineda6 Marcia Fay PAS PAS ts1
--- NOTE | 2022-12-06 18:46 | EDPHYS ---
Physician Documentation [facility] [place], [place] Name: Gael Vela Age: 52 yrs Sex: Male : 1970 Arrival Date: 12/06/2022 Time: 15:20 Bed 4 Private MD: ED Physician Otis Crain HPI: 12/06 15:39 This 52 yrs old Male presents to ER via Unassigned with complaints of Chest Pain, High cp Blood Pressure, Shortness Of Breath. 15:40 The patient or guardian reports chest pain that is located primarily in the anterior cp chest wall, left. 15:40 Onset: 1 week(s) ago. The chest pain is described as squeezing. Duration: The patient cp or guardian reports multiple episodes, that wax and wane. Modifying factors: the symptoms are aggravated by activity. Severity of pain: in the emergency department the pain has improved markedly. 15:40 Associated signs and symptoms: Pertinent positives: dizziness, shortness of breath, cp Pertinent negatives: abdominal pain, cough, diaphoresis, lower extremity pain, lower extremity swelling, syncope. Historical: - Allergies: 15:54 No Known Allergies; iw - Home Meds: 20:00 carvedilol Oral [Active]; levothyroxine oral [Active]; Protonix Oral [Active]; rv - PMHx: 15:54 acid reflux; borderline HTN; Headaches; Hypertension; Thyroid problem; iw - PSHx: 15:54 right kidney removed; iw - Immunization history:: Adult Immunizations unknown. - Social history:: Smoking status: Patient denies any tobacco usage or history of. ROS: 15:45 Constitutional: Negative for body aches, chills, fever, poor PO intake. cp 15:45 Cardiovascular: Positive for chest pain, Negative for edema, palpitations. cp 15:45 Eyes: Negative for injury, pain, redness, and discharge. cp 15:45 ENT: Negative for drainage from ear(s), ear pain, sore throat, difficulty swallowing, cp difficulty handling secretions. 15:45 Respiratory: Positive for shortness of breath, on exertion. Negative for cough, wheezing. 15:45 Abdomen/GI: Negative for abdominal pain, nausea, vomiting, and diarrhea. 15:45 Back: Negative for radiated pain. 15:45 Neuro: Positive for dizziness, Negative for altered mental status, headache, numbness, syncope, weakness. 15:45 All other systems are negative. Exam: 15:50 Constitutional: The patient appears in no acute distress, alert, awake, cp non-diaphoretic, non-toxic, well developed, well nourished, overweight 15:50 Head/Face: Normocephalic, atraumatic. cp 15:50 Eyes: Periorbital structures: appear normal, Conjunctiva: normal, no exudate, no injection, Sclera: no appreciated abnormality, Lids and lashes: appear normal, bilaterally. 15:50 ENT: External ear(s): are unremarkable, Nose: is normal, Mouth: Lips: moist, Oral mucosa: pink and intact, moist, Posterior pharynx: is normal, airway is patent, no erythema, no exudate. 15:50 Neck: ROM/movement: is normal, is supple, without pain, no range of motions limitations. 15:50 Chest/axilla: Inspection: normal. 15:50 Cardiovascular: Rate: normal, Rhythm: regular, Edema: is not appreciated, JVD: is not appreciated. 15:50 Respiratory: the patient does not display signs of respiratory distress, Respirations: normal, no use of accessory muscles, no retractions, labored breathing, is not present, Breath sounds: are clear throughout, no decreased breath sounds, no stridor, no wheezing. 15:50 Abdomen/GI: Inspection: abdomen appears normal, Bowel sounds: active, all quadrants, Palpation: abdomen is soft and non-tender, in all quadrants. 15:50 Back: pain, is absent, ROM is normal. 15:50 Neuro: Orientation: to person, place \T\ time. Mentation: is normal, Cerebellar function: is grossly normal, Motor: moves all fours, strength is normal, Sensation: is normal. 18:47 ECG was reviewed by the Attending Physician. cp Vital Signs: 15:46 BP 153 / 101; Pulse 89; Resp 16; Temp 98.1; Pulse Ox 98% on R/A; iw 16:15 BP 165 / 106; Pulse 65; Resp 18; Pulse Ox 99% on R/A; ko1 17:34 BP 163 / 101; Pulse 65; Resp 16; Pulse Ox 100% ; ko1 17:53 BP 161 / 103; Pulse 66; Resp 16; Pulse Ox 100% ; ko1 18:44 BP 164 / 106; Pulse 64; Resp 14; Pulse Ox 99% ; bp 19:54 BP 156 / 102; Pulse 71; Resp 13; Pulse Ox 98% on NC; jb4 MDM: 15:50 Patient medically screened. 18:45 Data reviewed: vital signs, nurses notes, lab test result(s), EKG, radiologic studies, cp CT scan, plain films. 18:45 HEART Score: History: Moderately Suspicious (1), ECG: Non specific repolarization cp disturbance / LBTB / PM (1), Age: > 45 and < 65 years (1), Risk Factors: 1 or 2 risk factors (1), [Hypertension] [Obesity] Troponin: < or = 1 x Normal Limit (0). Consideration of Admission/Observation Patient was admitted/placed on observation. Management of patient was discussed with the following: Hospitalist: Kalina Santillan, LAUNDRY ROUTEMAN will admit after discussion. Independent interpretation of the following test(s) in the Emergency Department EKG: See my EKG interpretation above. Test considered but Not performed: CT: chest PE protocol. Counseling: I had a detailed discussion with the patient and/or guardian regarding: the historical points, exam findings, and any diagnostic results supporting the discharge/admit diagnosis, the presence of at least one elevated blood pressure reading (>120/80) during this emergency department visit, lab results, radiology results. Response to treatment: pain improved. 12/06 15:39 Order name: Basic Metabolic Panel; Complete Time: 16:52 12/06 16:52 Interpretation: Normal except: CL 112; GLUC 108; CRE 1.62; GFR 51. 12/06 15:39 Order name: CBC with Diff; Complete Time: 16:52 12/06 15:39 Order name: Magnesium; Complete Time: 16:52 12/06 15:39 Order name: NT PRO-BNP; Complete Time: 16:52 12/06 15:39 Order name: PT-INR; Complete Time: 16:52 12/06 15:39 Order name: Troponin HS; Complete Time: 16:52 12/06 16:52 Interpretation: Reviewed. 12/06 15:39 Order name: XRAY Chest (1 view); Complete Time: 18:15 12/06 18:15 Interpretation: Report review. 12/06 16:54 Order name: CT Head Brain wo Cont; Complete Time: 18:42 cp 12/06 18:42 Interpretation: Report reviewed. cp 12/06 15:39 Order name: EKG; Complete Time: 15:40 cp 12/06 15:39 Order name: Cardiac monitoring; Complete Time: 16:34 cp 12/06 15:39 Order name: EKG - Nurse/Tech; Complete Time: 16:07 cp 12/06 15:39 Order name: IV Saline Lock; Complete Time: 16:12 cp 12/06 15:39 Order name: Labs collected and sent; Complete Time: 16:12 cp 12/06 15:39 Order name: O2 Per Protocol; Complete Time: 16:34 cp 12/06 15:39 Order name: O2 Sat Monitoring; Complete Time: 16:34 cp 12/06 18:21 Order name: EKG - Nurse/Tech; Complete Time: 18:44 cp EC:06 Rate is 71 beats/min. Rhythm is regular. [place] interval is normal. QRS interval is normal. cp QT interval is normal. T waves are Inverted in lead aVR. Interpreted by me. Reviewed by me. 18:47 Rate is 64 beats/min. Rhythm is regular. [place] interval is normal. QRS interval is cp prolonged at 104 msec. QT interval is normal. T waves are Inverted in leads III, aVR. Interpreted by me. Reviewed by me. Administered Medications: 16:45 Drug: Aspirin PO Chewable Tablet 324 mg Route: PO; ko1 20:03 Follow up: Response: No adverse reaction; Marked relief of symptoms rv 17:03 Drug: NS 0.9% IV 500 ml Route: IV; Rate: bolus; Site: right antecubital; ko1 20:03 Follow up: IV Status: Completed infusion; IV Intake: 500ml rv 17:49 Drug: hydrALAZINE IVP 5 mg Route: IVP; Site: right antecubital; bp 20:03 Follow up: Response: No adverse reaction; Marked relief of symptoms rv 18:44 Drug: diphenhydrAMINE IVP 50 mg Route: IVP; Site: right forearm; bp 20:03 Follow up: Response: No adverse reaction; Marked relief of symptoms rv 18:44 Drug: MethylPrednisoLONE IVP 125 mg Route: IVP; Site: right forearm; bp 20:03 Follow up: Response: No adverse reaction; Marked relief of symptoms rv 18:44 Drug: Famotidine IVP 20 mg Route: IVP; Site: right antecubital; bp 20:03 Follow up: Response: No adverse reaction; Marked relief of symptoms rv 18:44 Drug: DuoNeb Nebulize (2.5 mg - 0.5 mg) 3 ml Route: Nebulizer; bp 20:02 Follow up: Response: No adverse reaction; Marked relief of symptoms rv Disposition: 17:45 Co-signature as Attending Physician, Otis Crain DO I was immediately available on-site ms3 in the Emergency Department for consultation in the care of the patient. Disposition Summary: 12/06/22 18:46 Hospitalization Ordered Hospitalization Status: Observation cp Provider: Samantha Santillan cp Location: Telemetry/MedSurg (observation) cp Condition: Stable cp Problem: new cp Symptoms: have improved cp Bed/Room Type: Standard cp Room Assignment: 208(12/06/22 19:52) mw Diagnosis - Angina pectoris, unspecified cp - Hypertensive heart disease without heart failure cp Forms: - Medication Reconciliation Form cp - SBAR form cp Signatures: Dispatcher [employer] EDFabiola Bourne RN MERT mw Berenice Fox RN RN Bryant Goldberg PA PA cp Bernardo Stone RN RN bp Vicente, Ronaldo RN Otis Gillespie DO DO ms3 Paula Plummer RN RN ko1 Corrections: (The following items were deleted from the chart) 19:52 18:46 cp mw
--- NOTE | 2022-12-06 19:52 | P.HP ---
Certification for Inpatient Patient admitted to: Observation With expected LOS: <2 Midnights Patient will require the following post-hospital care: None Practitioner: I am a practitioner with admitting privileges, knowledge of patient current condition, hospital course, and medical plan of care. Services: Services provided to patient in accordance with Admission requirements found in Title 42 Section 412.3 of the Code of Federal Regulations Patient History Date of Service: 12/06/22 Primary Care Provider: Celine Reason for admission: Chest Pain History of Present Illness: Mr. Vela is a 52-year-old male with past medical history of hypertension, right renal cell carcinoma status post nephrectomy who presented emergency de partment with complaints of chest pain and dizziness. Patient states that he has been experiencing chest pain on and off for 3 days now but today he started to feel very dizzy and short of breath after walking about 100 yards at work. His work-up in the emergency department was unremarkableblood work, EKG, chest x-ray. He was noted to be [id number] and was given 5 mg IV hydralazine in which she had an adverse reaction to causing a worsening of the chest tightness and shortness of breath. He was subsequently given Benadryl, Solu-Medrol, and a breathing treatment which improved his symptoms. He was also given 324 mg of aspirin. ED provider wishes admit patient for further management. Allergies hydralazine Allergy (Intermediate, Verified 12/06/22 20:38) Shortness of breath Home medications list reviewed: Yes Home Medications: Pantoprazole [Protonix Tab*] 40 mg PO DAILYAC #30 tab 07/27/19 Carvedilol [Coreg] 25 mg PO DAILY 02/24/21 Levothyroxine Sodium 25 mcg PO DAILY 02/24/21 Montelukast [Singulair*] 10 mg PO DAILY 02/24/21 metroNIDAZOLE [Flagyl*] 1 tab PO Q8H 02/28/21 Hydrocodone 5/APAP 325 [[place] 5/325*] 1 tab PO Q6H PRN #12 tab 03/02/21 Levothyroxine [Synthroid*] 0.075 mg PO DAILYAC tab 03/02/21 Montelukast [Singulair*] 10 mg PO BEDTIME tab 03/02/21 Pantoprazole [Protonix Tab*] 40 mg PO ACB tab 03/02/21 carvediloL [Coreg*] 25 mg PO BID 6AM 6PM tab 03/02/21 metroNIDAZOLE [Flagyl*] 500 mg PO TID tablet 03/02/21 - Past Medical/Surgical History Diabetic: No -: Hypertension -: Obstructive sleep apnea -: GERD with hiatal hernia -: Tobacco abuse-dipping -: Renal Cell Carcinoma -: Cholecystectomy -: Right Nephrectomy Psychosocial/ Personal History: The patient is , he has 3 children. He works as a general road supervisor. - Family History Father -: Heart disease, Hypertension, Diabetes, Cancer, Other (see notes) Mother -: Diabetes, Cancer Sister -: Hypertension, Blood disorders, Other (see notes) Notes: thyroid issues - Social History Smoking Status: Former smoker Alcohol use: No CD- Drugs: No Caffeine use: Yes Place of Residence: Home Review of Systems Respiratory: SOB with Excertion Cardiovascular: Chest Pain Neurological: Other (Dizziness) Physical Examination - Vital Signs Temperature: 98.1 F Blood Pressure: 164/106 Pulse: 64 Respirations: 14 Pulse Ox (%): 99 - Physical Exam General: Alert, In no apparent distress HEENT: Atraumatic, EOMI, Sclerae nonicteric Neck: Supple, 2+ carotid pulse no bruit Respiratory: Clear to auscultation bilaterally, Normal air movement Cardiovascular: Regular rate/rhythm, Normal S1 S2 Gastrointestinal: Normal bowel sounds, No tenderness Musculoskeletal: No tenderness Integumentary: No rashes Neurological: Normal speech, Normal affect - Studies Laboratory Data (last 24 hrs) 12/06/22 16:10: PT 11.8, INR 1.07 12/06/22 16:10: WBC 6.90, Hgb 14.3, Hct 42.9, Plt Count 249 12/06/22 16:10: Sodium 141, Potassium 4.0, BUN 18, Creatinine 1.62 H, Glucose 108 H, Magnesium 2.1 Assessment and Plan - Problems (Diagnosis) (1) Chest pain Current Visit: Yes Status: Acute Qualifiers: (2) Chronic kidney disease Current Visit: Yes Status: Chronic Qualifiers: Chronic kidney disease stage: stage 3 (moderate) Chronic kidney disease stage 3 subtype: stage 3a (GFR 45-59) Qualified Code(s): N18.31 - Chronic kidney disease, stage 3a (3) GERD (gastroesophageal reflux disease) Current Visit: Yes Status: Chronic Qualifiers: Esophagitis presence: without esophagitis Qualified Code(s): K21.9 - Gastro-esophageal reflux disease without esophagitis (4) Hypertension Current Visit: Yes Status: Chronic Qualifiers: Hypertension type: primary hypertension Qualified Code(s): I10 - Essential (primary) hypertension - Plan Patient is admitted for observation for ACS rule out. Consult cardiology. Monitor on telemetry. Trend troponin. Initial negative. Aspirin and atorvastatin daily. Check lipid panel, TSH, A1c. Obtain echocardiogram and carotid ultrasound. Monitor and replete electrolytes per protocol. Reconcile continue home medications. Lovenox for VTE prophylaxis. Full code. Discharge Plan: Home Plan to discharge in: 24 Hours - Advance Directives Does patient have a Living Will: No Does patient have a Durable POA for Healthcare: No - Code Status/Comfort Care Code Status Assessed: Yes Code Status: Full Code Physician Review: Patient Assessed, Agree with Above Assessment and Plan Critical Care: No Time Spent Managing Pts Care (In Minutes): 50
[2022-12-06] MEDS ORDERED: ONDANSETRON 4 MG/2 ML VIAL IV PRN (20:27)
[2022-12-06] MEDS ORDERED: carvediloL 25 MG TAB PO ONE (20:27)
[2022-12-06] MEDS ORDERED: ALBUTEROL 2.5 MG/3 ML NEB SOL NEB PRN (20:27)
[2022-12-06] MEDS ORDERED: ACETAMINOPHEN 500 MG TAB PO PRN (20:27)
[2022-12-06] MEDS: NA CHLORIDE 0.9% 1,000 ML IV SCH (21:18)
[2022-12-06] MEDS: ATORVASTATIN 40 MG TAB PO SCH (21:18)
[2022-12-06 22:11] VITALS: BMI 34.0
[2022-12-07 02:53] LABS: Absolute Lymphocytes (CBC) 0.6 K/uL (0.7-4.9); Hematocrit 43.4 % (39.6-49.0); Lymphocytes % 8.8 % (15.3-44.8); MCV 87.3 fL (80-100); MPV 8.7 fL (7.6-11.3); RBC Red Blood Cell Count 4.98 M/uL (4.33-5.43)
[2022-12-07 03:34] LABS: Magnesium 1.8 mg/dL (1.6-2.4); Thyroid Stimulating Hormone 1.23 uIU/mL (0.358-3.740); Troponin High Sensitivity 5.5 pg/mL (<58.9)
[2022-12-07 03:54] LABS: Phosphorus 0.8 mg/dL (2.5-4.9)
[2022-12-07] MEDS: POTASSIUM PHOS IN 0.9 % NACL 15 MMOL/250 ML BAG IV SCH ×2 (05:07→10:11)
[2022-12-07] MEDS: carvediloL 25 MG TAB PO SCH ×2 (05:54→21:00)
[2022-12-07] MEDS: LEVOTHYROXINE SOD 0.075 MG TAB PO SCH (05:54)
[2022-12-07] MEDS: PANTOPRAZOLE 40MG TABLET PO SCH (05:55)
[2022-12-07] MEDS: MONTELUKAST 10 MG TAB PO SCH (05:55)
[2022-12-07] MEDS: LOSARTAN POTASSIUM 50 MG TABLET PO SCH (05:55)
[2022-12-07] MEDS: MELOXICAM 7.5 MG TAB PO SCH (05:55)
--- NOTE | 2022-12-07 08:27 | RAD REPORT ---
EXAM DESCRIPTION: USCarotid Artery Bilateral12/07/2022 12:05 am CLINICAL HISTORY: syncope/dizziness COMPARISON: None FINDINGS: The velocity of the right internal carotid artery equals 65 cm/sec. The right ICA/CCA rati o 0.7 The velocity of the left internal carotid artery equals 63 cm/sec. The left ICA/CCA ratio 0.8 No plaque is visualized within the carotid and vertebral arteries The vertebral arteries demonstrate antegrade flow IMPRESSION: No significant abnormality is displayed NASCET criteria used. Mild 0-49% stenosis Moderate 50-69% stenosis Severe 70-99% stenosis
[2022-12-07] MEDS: ASPIRIN EC 81 MG TAB PO SCH (09:00)
[2022-12-07] MEDS: ENOXAPARIN 40 MG/0.4 ML SQ SCH (09:00)
[2022-12-07] MEDS ORDERED: REGADENOSON 0.4 MG/5 ML SYR IV ONE (09:49)
--- NOTE | 2022-12-07 13:47 | EKG ---
Test Date: 2022-12-06 Test Time: 18:41:53 Story Reader: BP MEASUREMENT RESULTS: Intervals: Rate: 64 GA: 168 QRSD: 104 QT: 428 QTc: 441 [place]: P: 35 GA: 168 QRS: 0 T: 23 INTERPRETIVE STATEMENTS: Normal sinus rhythm Inferior infarct, age undetermined Abnormal ECG Compared to ECG 07/27/2019 07:30:31 No significant changes Electronically Signed On 12-07-22 13:46:13 CDT by Mario Christiansen
--- NOTE | 2022-12-07 13:47 | EKG ---
Test Date: 2022-12-06 Test Time: 15:59:04 Watch Band Assembler: REBECCA MEASUREMENT RESULTS: Intervals: Rate: 71 CO: 176 QRSD: 100 QT: 386 QTc: 419 [place]: P: 2 CO: 176 QRS: 43 T: 8 INTERPRETIVE STATEMENTS: Normal sinus rhythm Inferior infarct, age undetermined Cannot rule out Anterior infarct, age undetermined Abnormal ECG Compared to ECG 07/27/2019 07:30:31 No significant changes Electronically Signed On 12-07-22 13:46:24 CDT by Mario Christiansen
--- NOTE | 2022-12-07 13:54 | RAD REPORT ---
EXAM DESCRIPTION: NM - Rest Stress Cardiac Imaging - 12/07/2022 1:30 pm CLINICAL HISTORY: Chest pain. COMPARISON: None. TECHNIQUE: The patient was administered 10. mCi of Tc 99m Sestamibi prior to resting SPECT imaging o f the heart. The patient was then administered 30. MCi of Tc 99m Sestamibi following exercise or pha rmacologic stress. Multiplanar SPECT images were reviewed. FINDINGS: Moderate to large area of diminished radiotracer activity involves the inferior apical lef t ventricular myocardium on rest and stress sequences. Small to moderate area of diminished radiotracer activity involves the septal left ventricular myocar dium on stress and rest sequences. The left ventricular ejection fraction equals 52% IMPRESSION: Moderate to large apparent fixed perfusion defect involving the inferior apical left sandra tricular myocardium Small to moderate apparent fixed perfusion defect involving the septal left ventricular myocardium. These may indicate infarcts. There is no evidence of stress-induced ischemia
--- NOTE | 2022-12-07 14:39 | P.PN ---
Subjective Date of Service: 12/07/22 Primary Care Provider: Celine Chief Complaint: Chest Pain Subjective: No new changes, Improving Physical Examination - Vital Signs Temperature: 98.5 F Blood Pressure: 142/95 Pulse: 76 Respirations: 16 Pulse Ox (%): 96 - Physical Exam General: Alert, Oriented x3 HEENT: Atraumatic, Normocephalic Neck: Supple Cardiovascular: Regular rate/rhythm, Normal S1 S2 Gastrointestinal: Soft and benign Musculoskeletal: No swelling Neurological: Normal speech - Studies Laboratory Data (last 24 hrs) 12/06/22 16:10: PT 11.8, INR 1.07 12/06/22 16:10: WBC 6.90, Hgb 14.3, Hct 42.9, Plt Count 249 12/06/22 16:10: Sodium 141, Potassium 4.0, BUN 18, Creatinine 1.62 H, Glucose 108 H, Magnesium 2.1 Assessment And Plan - Plan Chest pain: Work-up as per cardiology. No acute abnormality Hypothyroidism: We will continue levothyroxine Hypophosphatemia: Severely low at 0.8. Repletion started. Nephrology consulted. s/p Nephrectomy: He has a solitary kidney status and he also has worsening kidney function. Will consult nephrology for management Disposition: Pending evaluation by cardiology. Physician Review: Patient Assessed, Agree with Above Assessment and Plan
--- NOTE | 2022-12-07 15:08 | P.CNS ---
Date of Consult: 12/07/22 Reason for Consult: DIONICIO Requesting Physician: Clayton Jimenez V Primary Care Provider: Celine Chief Complaint: Chest Pain History of Present Illness: 52M w/ PMHx of R renal cell carcinoma s/p nephrectomy, Htn, & GERD, who p/w chest pain and dizziness admitted for further cardiac evaluation and management. He is referred to nephrology for renal failure. Serum creatinine is 1.6 on admission, today remained the same at 1.6. His baseline serum creatinine 0.9 as of December 2020. He receive IVF. He has hypophosphatemia. Allergies hydralazine Allergy (Intermediate, Verified 12/06/22 20:38) Shortness of breath Home Medications: Carvedilol [Coreg] 25 mg PO BID 02/24/21 Montelukast [Singulair*] 10 mg PO DAILY 02/24/21 Pantoprazole [Protonix Tab*] 40 mg PO ACB tab 03/02/21 Levothyroxine [Synthroid*] 1 tab PO DAILY 12/07/22 Losartan Potassium 100 mg PO DAILY 12/07/22 Meloxicam [Mobic] 15 mg PO DAILY 12/07/22 - Past Medical/Surgical History Diabetic: No -: Hypertension -: Obstructive sleep apnea -: GERD with hiatal hernia -: Tobacco abuse-dipping -: Renal Cell Carcinoma -: Cholecystectomy -: Right Nephrectomy Psychosocial/ Personal History: The patient is , he has 3 children. He works as a general internal medicine doctor. - Family History Father Medical History: Heart disease, Hypertension, Diabetes, Cancer, Other (see notes) Mother Medical History: Diabetes, Cancer Sister Medical History: Hypertension, Blood disorders, Other (see notes) Notes: thyroid issues - Social History Alcohol use: No CD- Drugs: No Caffeine use: Yes Place of Residence: Home Review of Systems General: Unremarkable Eyes: Unremarkable ENT: Unremarkable Respiratory: SOB with Excertion Cardiovascular: Chest Pain, Other (dizziness) Gastrointestinal: Unremarkable Genitourinary: Unremarkable Musculoskeletal: Unremarkable Integumentary: Unremarkable Neurological: Unremarkable Lymphatics: Unremarkable Physical Examination Temp Pulse Resp BP Pulse Ox 98.5 F 76 16 142/95 H 96 12/07/22 14:39 12/07/22 14:39 12/07/22 14:39 12/07/22 14:39 12/07/22 14:39 General: Other (appears as his stated age) HEENT: Atraumatic, Normocephalic Neck: Supple, JVD not distended Respiratory: Other (symmetric chest expansion) Cardiovascular: No rubs, No murmurs Gastrointestinal: Soft and benign, No guarding Musculoskeletal: No clubbing Integumentary: No warmth Neurological: Normal tone Lymphatics: No axilla or inguinal lymphadenopathy Urinary: Other (no bladder distention) External genitalia: Deferred Rectal: Deferred Laboratory Data (last 24 hrs) 12/06/22 16:10: PT 11.8, INR 1.07 12/06/22 16:10: WBC 6.90, Hgb 14.3, Hct 42.9, Plt Count 249 12/06/22 16:10: Sodium 141, Potassium 4.0, BUN 18, Creatinine 1.62 H, Glucose 108 H, Magnesium 2.1 Conclusions/Impression: # DIONICIO 2/2 prerenal state +/- ATN from prolonged prerenal, vs DIONICIO on CKD Serum creatinine is 1.6 on admission, today remained the same at 1.6 Baseline serum creatinine is 0.9 as of December 2020 Hx of R renal cell carcinoma s/p R nephrectomy Urinalysis showed no hematuria, no pyuria, no proteinuria Urine chem non-prerenal No overt proteinuria on random UPCR CPK wnl, no rhabdo; BNP wnl Follow-up renal ultrasound Covert by mouth fluid intake # Vtamin D deficiency Start cholecalciferol 5000 international units by mouth daily # Secondary hyperparathyroidism D3 repletion as above # Hypophosphatemia Phos repletion today # Htn BP meds adjusted # Chest pain Per Cardiology # Hypothyroidism Levothyroxine
[2022-12-07] MEDS: NA CHLORIDE 0.9% 1,000 ML IV SCH (16:31)
[2022-12-07 19:27] LABS: Specific Gravity 1.012 (1.005-1.030); Urine Bacteria <20 /HPF (<20); Urine Bilirubin NEGATIVE (Negative); Urine Blood Negative (Negative); Urine Clarity Clear (Clear); Urine Color Light-Yellow (Yellow); Urine Glucose NEGATIVE (Negative); Urine Mucus Slight /HPF (None Seen); Urine Protein NEGATIVE (Negative); Urine RBC None Seen /HPF (None Seen); Urine Urobilinogen Normal (Normal)
[2022-12-07 19:33] LABS: UR PROTEIN 10.6 mg/dL (<11.9); Urine Protein/Creatinine Ratio 0.13 ratio (<0.15)
[2022-12-07] MEDS: ATORVASTATIN 40 MG TAB PO SCH (21:00)
--- NOTE | 2022-12-07 22:27 | RAD REPORT ---
EXAM DESCRIPTION: US - Renal Ultrasound-Complete - 12/07/2022 10:00 pm CLINICAL HISTORY: grace, assess for hydronephrosis, ckd changes COMPARISON: Renal Ultrasound-Complete dated 11/15/2022; Abdomen Pelvis W/Wo Contrast dated 07/03/20 TECHNIQUE: Sonographic grayscale and color flow images of the kidneys and bladder were obtained. FINDINGS: Right kidney was surgically removed. The left kidney is normal in contour, and signal characteristics, measures 12.9 centimeter in length. No hydronephrosis, focal mass or perinephric fluid. Incidentally noted anechoic thin walled left cherrie al mid pole 1.5 centimeter cyst. No echogenic shadowing calculi. The visualized portions of the liver demonstrates diffuse hyperechogenicity suggesting steatosis. The urinary bladder is incompletely distended without gross abnormality seen. IMPRESSION: Status post right nephrectomy. Suggestion of a small left renal mid pole anechoic cyst. No hydronephrosis or suspicious parenchymal findings of the left kidney. Diffuse hepatic parenchymal hyperechogenicity suggesting steatosis. Inadequate evaluation of the suboptimally distended bladder.
[2022-12-08 03:32] LABS: Potassium 3.8 mEq/L (3.5-5.1)
[2022-12-08 04:21] LABS: Phosphorus 3.5 mg/dL (2.5-4.9)
[2022-12-08] MEDS ORDERED: ALBUTEROL 2.5 MG/3 ML NEB SOL NEB PRN (08:00)
[2022-12-08 08:16] VITALS: O2SAT 98
[2022-12-08] MEDS: ASPIRIN EC 81 MG TAB PO SCH (08:39)
[2022-12-08] MEDS: LOSARTAN POTASSIUM 50 MG TABLET PO SCH (08:39)
[2022-12-08] MEDS: MONTELUKAST 10 MG TAB PO SCH (08:39)
[2022-12-08] MEDS: MELOXICAM 7.5 MG TAB PO SCH (08:39)
[2022-12-08] MEDS: carvediloL 25 MG TAB PO SCH (08:40)
[2022-12-08] MEDS: ENOXAPARIN 40 MG/0.4 ML SQ SCH (08:41)
[2022-12-08] MEDS: LEVOTHYROXINE SOD 0.075 MG TAB PO SCH (08:46)
[2022-12-08] MEDS: PANTOPRAZOLE 40MG TABLET PO SCH (08:46)
[2022-12-08] MEDS ORDERED: VITAMIN D 5,000 UNIT CAP PO SCH (09:00)
[2022-12-08 09:45] VITALS: BP 159/91; TEMP 97.9
--- NOTE | 2022-12-08 09:55 | P.DS ---
Admission Date: 12/06/22 Discharge Date: 12/08/22 Primary Care Provider: Celine Discharge Condition: GOOD Reason for Admission: Chest Pain Brief History of Present Illness: 53-year-old male patient with a medical history significant for hypertension, history of renal cell carcinoma post right nephrectomy who also had admission for chest pain. He was evaluated and found to have no significant troponinemia however he had a stress test ordered. Cardiology was to evaluate. Hospital Course: Patient did undergo stress test and had serial troponin done. He was admitted with elevated creatinine of 1.6 and this trended down slightly with IV hydration. He was found to have low phosphorus and he had phosphorus repletion with resolution of severe hypophosphatemia. In view of his nephrectomy and solitary kidney state nephrology consult placed to assist with management recommendation especially on outpatient. Patient DIONICIO started to resolve his [place] abnormality improved and he was deemed stable for discharge to follow-up with cardiology and nephrology as scheduled. He was started on aspirin and atorvastatin as restratification and mitigation measures. He will follow-up with his primary care doctor within a week of hospital discharge for posthospital discharge care Vital Signs/Physical Exam: Temp Pulse Resp BP Pulse Ox 97.9 F 70 14 159/91 H 98 12/08/22 08:00 12/08/22 08:00 12/08/22 08:00 12/08/22 08:00 12/08/22 08:00 General: Alert, Oriented x3 HEENT: Atraumatic, Normocephalic Neck: Supple Respiratory: Normal air movement Cardiovascular: Regular rate/rhythm, Normal S1 S2 Gastrointestinal: Soft and benign Musculoskeletal: No swelling Neurological: Normal speech Laboratory Data at Discharge: WBC 6.60 thou/uL (4.3-10.9) 12/07/22 02:22 Hgb 14.7 g/dL (13.6-17.9) 12/07/22 02:22 Hct 43.4 % (39.6-49.0) 12/07/22 02:22 Plt Count 217 thou/uL (152-406) 12/07/22 02:22 PT 11.8 SECONDS (9.5-12.5) 12/06/22 16:10 INR 1.07 12/06/22 16:10 Sodium 142 mEq/L (136-145) 12/08/22 02:31 Potassium 3.8 mEq/L (3.5-5.1) 12/08/22 02:31 BUN 18 mg/dL (7-18) 12/08/22 02:31 Creatinine 1.27 mg/dL (0.70-1.30) 12/08/22 02:31 Glucose 106 mg/dL (74-106) 12/08/22 02:31 Phosphorus 3.5 mg/dL (2.5-4.9) 12/08/22 02:31 Magnesium 1.8 mg/dL (1.6-2.4) 12/07/22 02:22 Triglycerides 45 mg/dL (<150) 12/07/22 02:22 Cholesterol 125 mg/dL (<200) 12/07/22 02:22 HDL Cholesterol 32 mg/dL (40-60) L 12/07/22 02:22 Cholesterol/HDL Ratio 3.91 12/07/22 02:22 Home Medications: Carvedilol [Coreg] 25 mg PO BID 02/24/21 Montelukast [Singulair*] 10 mg PO DAILY 02/24/21 Pantoprazole [Protonix Tab*] 40 mg PO ACB tab 03/02/21 Levothyroxine [Synthroid*] 1 tab PO DAILY 12/07/22 Losartan Potassium 100 mg PO DAILY 12/07/22 Aspirin 81 mg PO DAILY #30 tab.chew 12/08/22 Atorvastatin Calcium [Lipitor] 40 mg PO BEDTIME #30 tab 12/08/22 New Medications: Aspirin 81 mg PO DAILY #30 tab.chew Atorvastatin Calcium [Lipitor] 40 mg PO BEDTIME #30 tab Diet: AHA Followup: Harlan Berger MD [Primary Care Provider] - Mario Christiansen MD [ACTIVE - CAN ADMIT] - Jayjay Goss MD [ACTIVE - CAN ADMIT] -
--- NOTE | 2022-12-08 12:02 | CON ---
Date of Consultation: 12/07/[address] patient [address] to Dr. Holguin on 12/06/2022. Reason For Consultation: Chest pain. History Of Present Illness: Mr. Vela is 52-year-old, has had history of renal cancer, is status post nephrectomy in the past. He sees Dr. Maurice. He is allergic to hydralazine. He has a history of hypothyroidism, allergies, and reflux, as well as arthritis. Came in with sharp left-sided chest pain occasionally going to the left shoulder and is not exertional. No nausea, vomiting, diaphoresi s, PND, orthopnea, pedal edema, palpitations, or syncope. [place] has been ruled out. The patient sees Liz Berger. His blood pressure when he came in is 158/110. He is in sinus rhythm. Past Medical History: As stated above. Allergies: HE IS ALLERGIC TO HYDRALAZINE. Medications: Include Coreg, Mobic, Protonix, Synthroid, losartan, Singulair. Review of Systems: Negative. Social History: Negative. Family History: Negative. Physical Examination: Vital Signs: Stable. Afebrile. Blood pressure elevated at 158/110. Sinus rhythm. HEENT: Negative. Neck: Supple with no bruit. Chest: Clear. Cardiac: Revealed regular rhythm and rate with S4 gallops. Abdomen: Benign. Extremities: Revealed no clubbing, cyanosis, or edema. Diagnostic Data: Normal. Impression And Plan: Atypical chest pain in a patient with hypertension, renal insufficiency. Echoc ardiogram is pending. Lexiscan is pending. Continue present regimen. We will see what his studies show before making further decisions. He may need his carvedilol increased. May need a different me dicine than losartan because of his renal insufficiency or at least need to be watched carefully. He is status post nephrectomy. He only has 1 kidney. He follows with Dr. Maurice, and he will continu e to do so. Again for now, we will do an echo, Lexiscan, and will be fine. JUAN MANUEL/MINERVA Voice ID: [id number] Report ID: [id number]
--- NOTE | 2022-12-10 07:32 | ECHO ---
HEIGHT: 6 ft 4 in WEIGHT: 280 lb 0 oz DATE OF STUDY: 12/07/[address]: Samantha Santillan 2-DIMENSIONAL: YES M.MODE: YES DOPPLER: YES COLOR FLOW: YES TDS: PORTABLE: YES DEFINITY: BUBBLE STUDY: DIAGNOSIS: CHEST PAIN CARDIAC HISTORY: CATHERIZATION: SURGERY: PROSTHETIC VALVE: PACEMAKER: MEASUREMENTS (cm) DIASTOLIC (NORMALS) SYSTOLIC (NORMALS) IVSd 1.2 (0.6-1.2) LA Diam (1.9-4.0) LVEF 68% LVIDd 5.0 (3.5-5.7) LVIDs 3.1 (2.0-3.5) %FS 38% LVPWd 1.3 (0.6-1.2) Ao Diam 4.3 (2.0-3.7) 2 DIMENSIONAL ASSESSMENT: RIGHT ATRIUM: NORMAL LEFT ATRIUM: NORMAL RIGHT VENTRICLE: NORMAL LEFT VENTRICLE: LEFT VENTRICULAR HYPERTROPHY TRICUSPID VALVE: MILD TRICUSPID REGURGITATION MITRAL VALVE: MILD MITRAL REGURGITATION PULMONIC VALVE: NORMAL AORTIC VALVE: NORMAL PERICARDIAL EFFUSION: NONE AORTIC ROOT: NORMAL LEFT VENTRICULAR WALL MOTION: NORMAL DOPPLER/COLOR FLOW: SEE BELOW COMMENTS: 1. NORMAL LEFT VENTRICULAR EJECTION FRACTION 60-65% 2. NORMAL WALL MOTION 3. MILD DIASTOLIC DYSFUNCTION 4. MILD MITRAL REGURGITATION 5. MILD TRICUSPID REGURGITATION 6. MILD CONCENTRIC LEFT VENTRICULAR HYPERTROPHY TECHNOLOGIST: OBDULIO BETH
--- NOTE | 2022-12-10 07:43 | TREADPHA ---
DX: CHEST PAIN Date of Study: 12/07/2022 Ht: 6' 4 " Wt: 280 lb 0 oz Consulting Physician: SHITAL MEDICATIONS: ASPIRIN, LIPITOR, COZAAR, MOBIC, LOVENOX HISTORY: 52 YEAR OLD MALE WITH COMPLIANTS OF CHEST PAIN. HISTORY OF HYPERTENSION, REPORTS HISTORY OF ORAL TOBACCO USE, FORMER ETOH ABUSE, DENIES HISTORY OF DRUG USE OR PREVIOUS HEART SURGERIES. PHYSICIAL EXAMINATION: RESTING B.P.: 141/104 RESTING H.R.: 76 RESTING EKG: NORMAL SINUS RHYTHM, WITHIN NORMAL LIMITS PROTOCOL: PHARMACOLOGIC EXERCISE TIME: 3:30 B.P. AT PEAK STRESS: 165/99 IMPRESSION: LEXISCAN INJECTED PER PROTOCOL, CARDIOLITE GIVEN. SEE NUCLEAR MEDICINE REPORT. OCCASIONAL PERMATURE VENTRICULAR COMPLEXES NOTED THROUGHOUT PROCEDURE. NO ELECTROCARDIOGRAM CHANGES OF ISCHEMIA WITH LEXISCAN.
== END 2022-12-08 10:30 | disposition home or self-care (01) ==
LOC: ER 15:20 → 2ND 20:05
PROVIDERS: ADMIT Internal Medicine Nephrology; ATTEND Internal Medicine Nephrology
DX: R07.9 Chest pain, unspecified (principal); N17.9 Acute kidney failure, unspecified; N18.31 Chronic kidney disease, stage 3a; K21.9 Gastro-esophageal reflux disease without esophagitis; I10 Essential (primary) hypertension; E83.39 Other disorders of phosphorus metabolism; E21.2 Other hyperparathyroidism; Z85.528 Personal history of other malignant neoplasm of kidney; E55.9 Vitamin D deficiency, unspecified; Z88.8 Allergy status to other drugs, medicaments and biological substances
CPT/HCPCS: 93005; 93017; 93306; 85025 ×2; 81001; 80048 ×3; 36415 ×2; 83735 ×2; 82550; 84100 ×3; 84132; 85610; 84300; 80061; 84443; 83036; 82570; 84484 ×3; 84439; 83970; 82306; 83880; 83935; 84156; 70450; 71045; 93880; 76770; 94640; 94760 ×2; 78452; 99285; J7512; J2785; J0360; J1200; J7613; J7644; J1650; J2930; J7040; J7030 ×2; A9500; G0378 ×4

== ENCOUNTER 2022-12-18 08:12 | Inpatient (IN) | payer BC ==
--- OUTSIDE RECORDS SUMMARY | 2022-12-18 08:16 | XMS REPORT | Continuity of Care Document ---
:1970 Author Organization [facility] t Address [address] [place] [address] [place] [address] Care Team Providers Name Role Phone ELVIS WHEAT Primary Care Physician Unavailable PERCY GARRETT Attending Clinician Unavailable Percy Canchola Attending Clinician Loraine Espinoza Attending Clinician Unavailable PERCY GARRETT Admitting Clinician Unavailable Physician, No Primary or Family Admitting Clinician Unavaila ble Payers Payer Name Policy Type Policy Number Effective Date Expiration Date S trudy 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 Spirit - [facility] [id number] Right Problem Common upper Spirit quadrant - [facility] pain [facility] 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 Sp ne n n - [facility] [id number] S/P Problem Common laparoscop Spirit ic surgery - [facility] [id number] Renal cell Problem Co mmon carcinoma Spirit of right - [facility] kidney [facility] [id number] Erectile Problem Comm on dysfunctio Spirit n, - [facility] unspecifie d [facility] dysfunctio Medica l n type Center Renal mass Renal mass Problem C ommon Spirit - [facility] [id number] S/p Problem Common nephrectom Spirit y - [facility] Allergies, Adverse Reactions, Alerts Allergy Allergy Status Severity Reaction(s) Onset Inactive Treating Comm ents Source Name Type Date Date Clinician No Known DA Active U [facility] All[facility]ie 8-18 Clear s 00:00: Ruth 00 [facility] No Known DA Active U [facility] Allergie 8-18 Clear s 00:00: Ruth 00 [facility] NO KNOWN Drug Active Univers ALLERGIE Class ity of S [facility] Social History Social Habit Start Date Stop Date Quantity Comments Source History of Common Spirit - Tobacco Use [facility] Exposure to 2022-09-14 2022-09-24 Not sure [facility] SARS-CoV-2 00:00:00 16:00:00 [facility] [place] Tobacco use and 2021-01-30 2021-01-30 User of smokeless Un iversity of exposure 00:00:00 00:00:00 tobacco [facility] Sex Assigned At [birth year] Univers[facility] 00:00:00 00:00:00 [facility] Smoking Status Start Date Stop Date Source Never smoked tobacco [facility] Medications Ordered Filled Start Stop Current Ordering Indication Dosage Frequency Signature Comments Components Source Medication Medication Date Date Medication? Clinician (SIG) Name Name cloNIDine 2022- No .1mg 0.1 mg, Univ ers (CATAPRES) 09-24 Oral, ity of tablet 0.1 20:45: 20:57 ONCE, 1 Jelani as mg 00 :00 dose, On Medical [facility] 09/24/22 at 1545, STAT Pantoprazol Pantoprazol [...] Source Systolic blood 2022-09-24 21:00:00 153 mm[Hg] [facility] [place] Diastolic blood 2022-09-24 21:00:00 98 mm[Hg] [facility] Heart rate 2022-09-24 21:00:00 77 /min [facility] Respiratory rate 2022-09-24 21:00:00 18 /min [facility] Oxygen saturation in 2022-09-24 21:00:00 95 /min [facility] Arterial blood by [facility] Pulse oximetry Branch Body temperature 2022-09-24 19:43:[address] [facility] Body weight 2022-09-24 19:43:00 125.646 kg [facility] BMI 2022-09-24 19:43:00 33.72 kg/m2 [facility] blood pressure 2022-07-04 09:00:00 86 mm[Hg] [facility] - diastolic [facility] height 2022-07-04 09:00:00 74 [in_i] Common S pirit - [facility] weight 2022-07-04 09:00:00 270 [lb_av] Common [facility] temperature 2022-07-04 09:00:00 97.9 [degF] [facility] bmi 2022-07-04 09:00:00 34.66 kg/m2 [facility] oximetry 2022-07-04 09:00:00 97 % [facility] blood pressure 2022-07-04 09:00:00 142 mm[Hg] Common [facility] systolic [facility] height 2021-12-13 09:15:00 74 [in_i] [facility] weight 2021-12-13 09:15:00 278.8 [lb_av] [facility] temperature 2021-12-13 09:15:00 98.5 [degF] [facility] bmi 2021-12-13 09:15:00 35.79 kg/m2 [facility] oximetry 2021-12-13 09:15:00 99 % [facility] respiratory rate 2021-12-13 09:15:00 16 /min Comm on [facility] blood pressure 2021-12-13 09:15:00 136 mm[Hg] Common [facility] systolic [facility] blood pressure 2021-12-13 09:15:00 88 mm[Hg] [facility] diastolic [facility] Procedures Procedure Date / Time Performed Performing Clinician Sourc e XR CHEST 1 VW 2022-09-24 20:36:11 [facility]cy [facility] TROPONIN I 2022-09-24 20:10:00 Percy [facility] COMP. METABOLIC PANEL 2022-09-24 20:10:00 Percy Garrett [facility] ([id number]) Medical Branch CBC WITH DIFF 2022-09-24 20:10:00 Percy [facility] NOTICE OF PRIVACY 2022-09-24 19:39:29 Doctor Unassigned, No Univ [facility] PRACTICES Name Medical Branch Encounters Start End Encounter Admission Attending Care Care Encounter Source Date/Time Date/Time Type Type Clinicians Facility Department ID 2021-12-13 Outpatient STLMLC STLMLC [id number] Common 09:02:03 [id number] Spirit - [facility] 2022-09-24 2022-09-24 Emergency X [facility] ERT [id number] Univers 14:44:00 17:38:00 PERCY ity of [facility] 2022-09-24 2022-09-24 Emergency [facility] [id number] Univers 14:44:00 17:38:00 Percy Clifton [facility] [id number] i joe [facility] [id number] [facility] [id number] [place] [id number] Branch 2022-07-04 2022-07-04 OFFICE STLMLC STLMLC [id number] Co mmon 00:00:00 00:00:00 VISIT EST Spir it PT LEVEL 3 - CHI [facility] 2021-12-13 2021-12-13 OFFICE STLMLC STLMLC [id number] Co mmon 00:00:00 00:00:00 VISIT Spirit ESTAB PT - CHI LEVEL 5 [facility] 2021-02-23 2021-02-23 Inpatient ZACHARIAH Espinoza HCACL DAYS G001 [id number] [facility] 05:20:00 05:20:00 , Theodoros 49 Cl [facility] Results Test Description Test Time Test Comments Results Result Comments Source TROPONIN I 2022-09-24 20:47:32 Test Item Value Reference Range Interpretation Comme nts TROPONIN I (test code = 4333329761) 0.003 ng/mL <=0.034 JAYLA (test code = [...] biotin. Lab Interpretation (test code = Normal 25094-4) [facility]. METABOLIC PANEL ([id number])2022-09-24 20:36:11 Test Item Value Reference Range Interpretation Comments NA (test code = 142 mmol/L 135-145 2010903491) K (test code = 4.5 mmol/L 3.5-5.0 4021474723) CL (test code = 106 mmol/L 98-108 2378239734) CO2 TOTAL (test code = 27 mmol/L 23-31 7787933581) AGAP (test code = 9 2-16 0966368897) BUN (test code = 17 mg/dL 7-23 8994367397) GLUCOSE (test code = 110 mg/dL 70-110 3259655568) CREATININE (test code = 1.48 mg/dL 0.60-1.25 H 1848644269) TOTAL BILI (test code = 0.6 mg/dL 0.1-1.4 5965171508) CALCIUM (test code = 8.9 mg/dL 8.6-10.6 7473889612) T PROTEIN (test code = 7.6 g/dL 6.3-8.2 6197302845) ALBUMIN (test code = 4.1 g/dL 3.5-5.0 8541859440) ALK PHOS (test code = 110 U/L 34-122 0553016263) ALTv (test code = 30 U/L 5-50 2-6) AST(SGOT) (test code = 22 U/L 13-40 5066119697) eGFR (test code = 49.9 mL/min/1.73m2 1137787048) JAYLA (test code = JAYLA) Association of [...] tests). Lab Interpretation Abnormal (test code = 94362-5) [facility] WITH [id number] 20:30:50 Test Item Value Reference Range Interpretation Comments WBC (test code = 5.91 See_Comment [Automated message] 7190-2) The system [employer] generated this result transmitted ref erence range: 4.20 - 1 0.70 10*3/?L. The re ference range was not u sed to interpret this result as normal/abnor mal. RBC (test code = 5.01 See_Comment [Automated message] 018-8) The system [employer] generated this result transmitted ref erence range: [...] RDW-SD (test code 41.8 fL 38.5-51.6 = 74677-7) RDW-CV (test code 12.8 % 12.1-15.4 = 788-0) PLT (test code = 225 See_Comment [Automated message] 777-3) The system [employer] generated this result transmitted ref erence range: 150 - 32 8 10*3/?L. The re ference range was not u sed to interpret this result as normal/abnor mal. MPV (test code = 10.2 fL 9.8-13.0 73169-0) NRBC/100 WBC (test 0.0 See_Comment [Automat ed message] code = 6851637128) The syste m which generated this result transmitted ref erence range: 0.0 - 10 .0 /100 WBCs. The refer ence range was not u sed to interpret this result as normal/abnor mal. NRBC x10^3 (test See_Comment [Automated message] code = 5290979963) The syste m which generated this result transmitted ref erence range: 10*3/?L. The reference range was not used to interpr et this result as normal/abnormal . GRAN MAT (NEUT) % 58.4 % (test code = 770-8) IMM GRAN % (test 0.50 % code = 4044422032) LYMPH % (test code 25.5 % = 736-9) MONO % (test code 7.8 % = 5905-5) EOS % (test code = 7.1 % 713-8) BASO % (test code 0.7 % = 706-2) GRAN MAT 3.45 10*3/uL 1.99-6.95 x10^3(ANC) (test code = 1838414805) IMM GRAN x10^3 0.03 10*3/uL 0.00-0.06 (test code = 0417682978) LYMPH x10^3 (test 1.51 10*3/uL 1.09-3.23 code = 731-0) MONO x10^3 (test 0.46 10*3/uL 0.36-1.02 code = 742-7) EOS x10^3 (test 0.42 10*3/uL 0.06-0.53 code = 711-2) VANESSAO x10^3 (test 0.04 10*3/uL 0.01-0.09 code = 704-7) [facility] [id number] 14:48:00 Test Item Value Reference Range Interpretation Comments SURGICAL PATH SPECIMENS (test code = S) RUN DATE: 02/27/21 [place] - LAB PAGE 1 RUN TIME: 1448 Specimen Inquiry RUN USER: INTERFACE MARSHALL ENT: ASHLEY MCGHEE ACCBryan #: [id number] LOC: ColemanTESSIE U #: [id number] AGE/SX: 50/M ROOM: [facility]02[facility]: Loraine Espinoza : 70 BED: DIS: STATUS: [facility] TLOC: SPEC #: [id number] RECD: 02/24/21-1007 STATUS: GODWIN REJanneth #: [id number] MARGARITA: 02/23/21- SUBM DR: Loraine Espinoza MD ENTERED: 02/24/21 SP TYPE: SURG SPEC OTHR DR: No Primary or Family PhysicianORDERED: GM L4 31858 CODES: P99350 - RECTUM, NOS COPIES TO: No Primary or Family Physician Loraine Espinoza MD [address] [place] [address] [address] [place] [address] [email or web address] PROCEDURES: GM L4 16787 (02/24/21) TISSUES: RECTUM, NOS - POLYP FINAL [...] 02/27/21 1448 END OF REPORT BASIC METABOLIC [id number] 12:38:00 Test Item Value Reference Range Interpretation [...] 8.0-10.5 N CA) COVID 19 Asymptomatic IH [id number] 15:53:00 Test Item Value Reference Range Interpretation [...] moderate, high or waivedcomplexit y tests. PROTHROMBIN [id number] 15:34:00 Test Item Value Reference Range Interpretation [...] (to prevent recurrent infar ct). THROMBOPLASTIN TIME [id number] 15:34:00 Test Item Value Reference Range Interpretation Comments THROMBOPLASTIN TIME 33.0 Seconds 25.0-39.5 N Therape utic Range: PARTIAL (test code = 50.4 - 88.3 Seconds PTT) Effective 10/21/2018 BASIC METABOLIC [id number] 15:30:00 Test Item Value Reference Range Interpretation [...] 9.2 mg/dL 8.0-10.5 N CA) CBC W/AUTO [id number] 15:20:00 Test Item Value Reference Range Interpretation [...] NO = MDIFF) - XR CHEST 2 [id number] 00:00:00 [facility] 1970 Sex: M FAX: Telma Mendoza [phone] [place]: St: PRE FAX: Dimitri Glory Espinoza [phone] -- Name: KYARA MCGHEE [place] : 1970 Age/S: 50/M [address] [place] [address] Unit #: [id number] Loc: [place] [address] Phys: Telma Giron MD Acct: [id number] Dis Date: Status: PRE [facility] PHONE #: Exam Date: 02/22/2021 1509 FAX #: [phone] Reason: PREOP EXAMS: CPT CODE: [id number] XR CHEST 2 V 30108 PROCEDURE INFORMATION: Exam: XR Chest Exam date [...] the upper mediastinum. Bones/joints: No gross acute findings.IMPRESSION: No acute cardiopulmonary findings There appears to be widening of the upper mediastinum.This may represent underlying thoracic aortic aneurysm. Further evaluation with CTA would be helpful. at 1533 Reported and signed by: Coreen Saavedra D.O. CC: Telma Giron MD; Loraine Espinoza MD Technologist: RT Marce(R) Trnscrd Date/Time/By: 02/22/2021 (1532) : By: [email or web address] [facility] Print D/T: S: 02/22/2021 (1532) PAGE 1 Signed Report Notes Date/Time Note Provider Source 2021-02-23 14:22:00-00:00 8438-7991 [place] [address] PATIENT NAME: ASHLEY MCGHEE ADMIT DATE: 02/23 ACCOUNT NO: [id number] ROOM NO: AGE: 50 REPORT TYPE: OPERATIVE REPORT SEX: M ADMITTING PHYSICIAN: ATTENDING PHYSICIAN:Loraine Espinoza MD OPERATION DATE: 02/23/2021 PREOPERATIVE DIAGNOSES: Rectal polyp and right k idney cancer. POSTOPERATIVE DIAGNOSES: Rectal polyp and right kidney cancer. PROCEDURES: Transanal minimally invasive surgery , full-thickness resection of rectal polyp. SURGEON: Loraine Espinoza MD. KILN BURNER HELPER: Nara Vasques. ANESTHESIA: General. 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 This PATIENT NAME: ASHLEY MCGHEE [id number] procedure requires a first assistnt for handling [...] polyp was submitted to pathology. Subsequently, we recapp ed the port and reinsufflated pneumoperitoneum and then [...] By: Loraine Espinoza MD WT: OP:BRIDGET/ROSALIND/LEONARDO Conf#: [id number]/DID#: [id number] Authenticated and Edited by Loraine madrigal MD On 02/24/21 9:06:10 AM at 0907 PATIENT NAME: ASHLEY MCGHEE [id number] 15:02:00-00:00 [id number] [place] [address] PATIENT NAME: ASHLEY MCGHEE ADMIT DATE: ACCOUNT NO: [id number] ROOM NO: AGE: 50 REPORT TYPE: eELECTROCARDIOGRAM REPORT SEX: M ADMITTING PHYSICIAN: ATTENDING PHYSICIAN:Loraine Espinoza MD Order: [id number] Test Reason : PREOP Test Date/Time Stamp: [...] 3:26:26 PM Referred By: Loraine Espinoza Confirmed by: RENETTA MOORE MD at 1527 PATIENT NAME: ASHLEY MCGHEE [id number]"
[2022-12-18] MEDS ORDERED: ASPIRIN 81 MG CHEWABLE TABLET ONE (08:32)
[2022-12-18 08:39] LABS: Absolute Lymphocytes (CBC) 1.1 K/uL (0.7-4.9); Hematocrit 44.3 % (39.6-49.0); Lymphocytes % 19.2 % (15.3-44.8); MCV 87.1 fL (80-100); MPV 8.1 fL (7.6-11.3); RBC Red Blood Cell Count 5.08 M/uL (4.33-5.43)
[2022-12-18 08:51] LABS: Potassium 4.1 mEq/L (3.5-5.1)
--- NOTE | 2022-12-18 09:13 | RAD REPORT ---
EXAM DESCRIPTION: RAD - Chest Single View - 12/18/2022 9:07 am CLINICAL HISTORY: CHEST PAIN COMPARISON: Chest Single View dated 12/06/2022; Chest Pa And Lat (2 Views) dated 07/05/2022; Chest Sin gle View dated 07/27/2019; Abdomen Acute Series dated 03/07/2017 FINDINGS: Lines: None. Lungs: Low lung volumes with mild basilar opacities. Pleural: No significant pleural effusions or pneumothorax. Cardiac: The heart size is within normal limits. Mediastinum: Within normal limits. Bones: No acute fractures. Other: None IMPRESSION: Probable basilar atelectasis. No definite acute process identified.
--- NOTE | 2022-12-18 09:47 | EDPHYS ---
Physician Documentation [facility] Name: Gael Vela Age: 52 yrs Sex: Male : 1970 Arrival Date: 12/18/2022 Time: 08:12 Bed 14 Private MD: Harlan Berger T ED Physician Otis Crain HPI: 12/18 08:23 This 52 yrs old Male presents to ER via Unassigned with complaints of Chest Pain, ms3 Dizziness. 08:23 52-year-old male with past medical history of hypertension, myocardial infarction, ms3 renal cell cancer presents for chest tightness that began at approximately 6 AM. Patient states the pain is substernal radiating to his back. Patient states the discomfort is a 6/10. Patient states last week they told him he had a possible infarct. Patient states he saw Dr. Christiansen yesterday and was set up for a heart catheterization on the .. Historical: - Allergies: 08:27 HYDRALAZINE; ph - PMHx: 08:25 acid reflux; borderline HTN; Headaches; Hypertension; Thyroid problem; ph - PSHx: 08:25 Right Kidney Removed; ph - Immunization history:: Adult Immunizations unknown. - Social history:: Smoking status: Patient denies any tobacco usage or history of. ROS: 08:23 Constitutional: Negative for fever, and chills. Neck: Negative for injury, pain, and ms3 swelling. 08:23 Respiratory: Negative for shortness of breath, cough, wheezing, and pleuritic chest pain, Abdomen/GI: Negative for abdominal pain, nausea, vomiting, diarrhea, and constipation, MS/Extremity: Negative for injury and deformity, Skin: Negative for injury, rash, and discoloration. 08:23 Cardiovascular: Positive for chest pain. 08:23 All other systems are negative. Exam: 08:23 Constitutional: This is a well developed, well nourished patient who is awake, alert, ms3 and in no acute distress. Head/Face: Normocephalic, atraumatic. Neck: Trachea midline, no cervical lymphadenopathy. Supple, full range of motion without nuchal rigidity, or vertebral point tenderness. No Meningismus. Chest/axilla: Normal chest wall appearance and motion. Nontender with no deformity. Cardiovascular: Regular rate and rhythm with a normal S1 and S2. No gallops, murmurs, or rubs. Normal PMI, no JVD. No pulse deficits. Respiratory: Lungs have equal breath sounds bilaterally, clear to auscultation and percussion. No rales, rhonchi or wheezes noted. No increased work of breathing, no retractions or nasal flaring. Abdomen/GI: Soft, non-tender, with normal bowel sounds. No distension or tympany. No guarding or rebound. No evidence of tenderness throughout. Skin: Warm, dry with normal turgor. Normal color with no rashes, no lesions, and no evidence of cellulitis. MS/ Extremity: Pulses equal, no cyanosis. Neurovascular intact. Full, normal range of motion. 08:40 ECG was reviewed by the Attending Physician. ms3 Vital Signs: 08:22 BP 137 / 91; Pulse 80; Resp 18; Temp 98.3; Pulse Ox 96% on R/A; Weight 123.38 kg; ph Height 6 ft. 4 in. ; Pain 6/10; 09:12 BP 123 / 89; Pulse 70; Resp 12 S; Pulse Ox 98% on R/A; kc6 10:11 BP 123 / 92; Pulse 66; Resp 19 S; Pulse Ox 97% on R/A; kc6 08:22 Body Mass Index 33.11 (123.38 kg, 193.04 cm) ph 08:22 Pain Scale: Adult ph MDM: 08:23 Differential diagnosis: abnormal EKG, acute myocardial infarction, coronary artery ms3 disease. The patient was given aspirin in the Emergency Department. 08:40 Patient medically screened. ms3 16:52 Data reviewed: vital signs, nurses notes, lab test result(s), EKG, radiologic studies, ms3 and as a result, I will admit patient. Consideration of Admission/Observation Patient was admitted/placed on observation. Management of patient was discussed with the following: Hospitalist: Gerson. Treating Plant Operator: Dr Christiansen. I considered the following discharge prescriptions or medication management in the emergency department Medications were administered in the Emergency Department. See MAR. Independent interpretation of the following test(s) in the Emergency Department court recording monitor: rate is 72 beats/min, Rhythm is normal sinus rhythm, regular, with no ectopy, Interpretation: normal rate, normal rhythm. Care significantly affected by the following chronic conditions: Hypertension. Counseling: I had a detailed discussion with the patient and/or guardian regarding: the historical points, exam findings, and any diagnostic results supporting the discharge/admit diagnosis, lab results, radiology results, the need for further work-up and treatment in the hospital. Response to treatment: the patient's symptoms have mildly improved after treatment, and as a result, I will admit patient. 12/18 08:22 Order name: Basic Metabolic Panel; Complete Time: 08:57 ms3 12/18 08:22 Order name: CBC with Diff; Complete Time: 08:57 ms3 12/18 08:22 Order name: Troponin HS; Complete Time: 08:57 ms3 12/18 11:25 Order name: Hemoglobin A1c; Complete Time: 11:47 EDMS 12/18 11:26 Order name: Phosphorus; Complete Time: 11:47 EDMS 12/18 11:26 Order name: Creatine Phosphokinase; Complete Time: 11:47 EDMS 12/18 11:26 Order name: T4 Free; Complete Time: 11:47 EDMS 12/18 11:26 Order name: Magnesium; Complete Time: 11:47 EDMS 12/18 11:26 Order name: Thyroid Stimulating Hormone; Complete Time: 11:47 EDMS 12/18 08:22 Order name: XRAY Chest (1 view); Complete Time: 09:15 ms3 12/18 11:45 Order name: MRI; Complete Time: 11:47 EDMS 12/18 08:22 Order name: EKG; Complete Time: 08:23 ms3 12/18 10:34 Order name: CONS Physician Consult EDMS 12/18 08:22 Order name: Cardiac monitoring; Complete Time: 08:23 ms3 12/18 08:22 Order name: EKG - Nurse/Tech; Complete Time: 08:23 ms3 12/18 08:22 Order name: IV Saline Lock; Complete Time: 08:23 ms3 12/18 08:22 Order name: Labs collected and sent; Complete Time: 08:23 ms3 12/18 08:22 Order name: O2 Per Protocol; Complete Time: 08:23 ms3 12/18 08:22 Order name: O2 Sat Monitoring; Complete Time: 08:23 ms3 EC:40 Rate is 73 beats/min. Rhythm is regular. QRS [place] is Normal. GA interval is normal. QRS ms3 interval is normal. QT interval is normal. Clinical impression: Normal ECG. Interpreted by me. Reviewed by me. Administered Medications: 08:29 Drug: Aspirin PO Chewable Tablet 324 mg Route: PO; kc6 08:58 Follow up: Response: No adverse reaction kc6 Disposition Summary: 12/18/22 09:46 Hospitalization Ordered Hospitalization Status: Observation ms3 Provider: Elsi Morel ms3 Location: Telemetry/MedSur (observation) ms3 Condition: Stable ms3 Problem: new ms3 Symptoms: are unchanged ms3 Bed/Room Type: Standard ms3 Room Assignment: 426(12/18/22 13:20) bd Diagnosis - Chest pain, unspecified ms3 Forms: - Medication Reconciliation Form ms3 - SBAR form ms3 Signatures: Dispatcher [employer] EDMS Fadumo Covington Patricia, RN RN Otis Crain DO DO ms3 Anna Sun, RN RN kc6 Corrections: (The following items were deleted from the chart) 13:20 09:46 ms3 bd
--- NOTE | 2022-12-18 09:47 | ER ---
Nurse's Notes [facility] Name: Gael Vela Age: 52 yrs Sex: Male : 1970 Arrival Date: 12/18/2022 Time: 08:12 Bed 14 Private MD: Harlan Berger T Diagnosis: Chest pain, unspecified Presentation: 12/18 08:22 Chief complaint: Patient states: Midsternal chest tightness/pain that radiates to back, ph SOB, dizziness, diarrhea x 2 days, and pain in both legs. Was seen in ED approx 1 week ago for similar symptoms and was admitted for "a possible infarct."Had appointment w/ Dr Christiansen yesterday and has cardiac cath scheduled on 12/27. Coronavirus screen: Vaccine status: Patient reports receiving the 2nd dose of the covid vaccine. Ebola Screen: No symptoms or risks identified at this time. Initial Sepsis Screen: Does the patient meet any 2 criteria? No. Patient's initial sepsis screen is negative. Does the patient have a suspected source of infection? No. Patient's initial sepsis screen is negative. Risk Assessment: Do you want to hurt yourself or someone else? Patient reports no desire to harm self or others. Onset of symptoms was December 18, 2022. 08: Method Of Arrival: Ambulatory ph 08: Acuity: RENEA 3 ph Triage Assessment: 08:27 General: Appears in no apparent distress. comfortable, Behavior is calm, cooperative. ph Pain: Complains of pain in back, chest, right leg and left leg. Neuro: Level of Consciousness is awake, alert, obeys commands, Oriented to person, place, time, situation, Reports dizziness. Respiratory: Reports shortness of breath. Historical: - Allergies: 08:27 HYDRALAZINE; ph - PMHx: 08:25 acid reflux; borderline HTN; Headaches; Hypertension; Thyroid problem; ph - PSHx: 08:25 Right Kidney Removed; ph - Immunization history:: Adult Immunizations unknown. - Social history:: Smoking status: Patient denies any tobacco usage or history of. Screenin: [facility] ED Fall Risk Assessment (Adult) History of falling in the last 3 months, kc6 including since admission No falls in past 3 months (0 pts) Confusion or Disorientation No (0 pts) Intoxicated or Sedated No (0 pts) Impaired Gait No (0 pts) Mobility Assist Device Used No (0 pt) Altered Elimination No (0 pt) Score/Fall Risk Level 0 - 2 = Low Risk Oriented to surroundings, Maintained a safe environment, Educated pt \\T\\ family on fall prevention, incl call for assistance when getting out of bed, Assessed \\T\\ reinforced patient's understanding of fall precautions, Hourly rounding (assess needs \\T\\ fall precautionary measures) done. Abuse screen: Denies threats or abuse. Denies injuries from another. Nutritional screening: No deficits noted. Tuberculosis screening: No symptoms or risk factors identified. Assessment: 08:20 General: Appears in no apparent distress. comfortable, Behavior is calm, cooperative, kc6 appropriate for age. Pain: Complains of pain in chest Pain does not radiate. Pain currently is 6 out of 10 on a pain scale. Pain began 2 hours ago. Is continuous. Neuro: Streeter Agitation-Sedation Scale (RASS): 0 - Alert and Calm Level of Consciousness is awake, alert, obeys commands, Oriented to person, place, time, situation, Appropriate for age Reports dizziness, since approximately 6am. Cardiovascular: Heart tones S1 S2 present Capillary refill < 3 seconds. Respiratory: Airway is patent Trachea midline Respiratory effort is even, unlabored, Respiratory pattern is regular, symmetrical, Breath sounds are clear bilaterally. GI: No signs and/or symptoms were reported involving the gastrointestinal system. : No signs and/or symptoms were reported regarding the genitourinary system. EENT: No signs and/or symptoms were reported regarding the EENT system. Derm: No signs and/or symptoms reported regarding the dermatologic system. Skin is intact, Skin is pink, warm \\T\\ dry. Musculoskeletal: No signs and/or symptoms reported regarding the musculoskeletal system. Circulation, motion, and sensation intact. Capillary refill < 3 seconds, Range of motion: intact in all extremities. 09:12 Reassessment: Patient appears in no apparent distress at this time. No changes from kc6 previously documented assessment. Patient and/or family updated on plan of care and expected duration. Pain level reassessed. Patient is alert, oriented x 3, equal unlabored respirations, skin warm/dry/pink. 10:11 Reassessment: Patient appears in no apparent distress at this time. No changes from kc6 previously documented assessment. Patient and/or family updated on plan of care and expected duration. Pain level reassessed. Patient is alert, oriented x 3, equal unlabored respirations, skin warm/dry/pink. 11:11 Reassessment: Patient appears in no apparent distress at this time. No changes from kc6 previously documented assessment. Patient and/or family updated on plan of care and expected duration. Pain level reassessed. Patient is alert, oriented x 3, equal unlabored respirations, skin warm/dry/pink. 12:00 Reassessment: please see [facility] for further charting. kc6 13:41 Reassessment: attempted to call report, room not assigned to a nurse yet at this time. kc6 Vital Signs: 08:22 BP 137 / 91; Pulse 80; Resp 18; Temp 98.3; Pulse Ox 96% on R/A; Weight 123.38 kg; ph Height 6 ft. 4 in. ; Pain 6/10; 09:12 BP 123 / 89; Pulse 70; Resp 12 S; Pulse Ox 98% on R/A; kc6 10:11 BP 123 / 92; Pulse 66; Resp 19 S; Pulse Ox 97% on R/A; kc6 08:22 Body Mass Index 33.11 (123.38 kg, 193.04 cm) ph 08:22 Pain Scale: Adult ph ED Course: 08:14 Patient arrived in ED. rg4 08:14 Harlan Berger MD is Private Physician. rg4 08:15 Anna Sun, MERT is Primary Nurse. kc6 08:16 Otis Crain DO is Attending Physician. ms3 08:22 Patient has correct armband on for positive identification. Bed in low position. Call kc6 light in reach. Side rails up X2. Client placed on continuous cardiac and pulse oximetry monitoring. NIBP monitoring applied. conveyor monitor on. 08:22 Arm band placed on. kc6 08:22 Inserted saline lock: 20 gauge in right antecubital area, using aseptic technique. kc6 ,using aseptic technique. placed by JUS, geospatial technologist Blood collected. Patient maintains SpO2 saturation greater than 95% on room air. 08:22 Initial lab(s) drawn, by ED staff, sent to lab. Inserted saline lock: 20 gauge in right ph antecubital area, using aseptic technique. Blood collected. 08:25 Triage completed. ph 09:09 XRAY Chest (1 view) In Process Unspecified. EDMS 09:45 Elsi Morel MD is Hospitalizing Provider. ms3 14:25 No provider procedures requiring assistance completed. Patient admitted, IV remains in kc6 place. Administered Medications: 08:29 Drug: Aspirin PO Chewable Tablet 324 mg Route: PO; kc6 08:58 Follow up: Response: No adverse reaction kc6 Medication: 14:26 VIS not applicable for this client. kc6 Outcome: 09:46 Decision to Hospitalize by Provider. ms3 14:25 Admitted to Med/surg accompanied by tech, via wheelchair, room 426, with chart, Report kc6 called to MERT Wagner 14:25 Condition: stable 14:25 Instructed on the need for admit. 14:26 Patient left the ED. kc6 Signatures: Dispatcher [employer] EDIA Cori Ellis, RN RN Lupis Johnson rg4 Otis Crain, DO ms3 Anna Sun RN RN kc6 Corrections: (The following items were deleted from the chart) 08:23 08:22 Inserted saline lock: 20 gauge in right antecubital area, using aseptic kc6 technique. Blood collected. kc6
[2022-12-18] MEDS ORDERED: HYDROCODONE/APAP 5/325 MG TAB PO PRN (10:31)
[2022-12-18] MEDS ORDERED: ONDANSETRON 4 MG/2 ML VIAL IV PRN (10:37)
[2022-12-18] MEDS ORDERED: HYDRALAZINE HCL 20 MG/ML VIAL IV PRN (10:39)
--- NOTE | 2022-12-18 10:39 | P.HP ---
Certification for Inpatient Patient admitted to: Inpatient With expected LOS: >2 Midnights Patient will require the following post-hospital care: None Practitioner: I am a practitioner with admitting privileges, knowledge of patient current condition, hospital course, and medical plan of care. Services: Services provided to patient in accordance with Admission requirements found in Title 42 Section 412.3 of the Code of Federal Regulations Patient History Date of Service: 12/18/22 Reason for admission: Chest pain History of Present Illness: Patient is a 52-year-old male with a past medical history significant for hypertension, ND, renal cell cancer, GERD who presents with complaint of chest pain onset this morning while at work. Patient reported that he has been having chest pain for the past 1 and 1/2 months. Patient reported that chest pain has been intermittent and is located in the substernal chest area. Patient indicated that chest pain radiates to his back. Patient rated pain as 6/10 in severity and described pain as pressure in quality. Patient was seen in the hospital last week for similar complaint. Patient indicated that he is been scheduled for a left heart catheterization with his sugarcane research technician next week. Patient reported associated signs and symptoms of bilateral lower extremity pain\tingling\numbness, diaphoresis, fatigue, weakness and generalized malaise. Family reported the patient has been having slurred speech intermittently for quite some time now. Patient denies any other signs and symptoms. Symptoms are aggravated or relieved by nothing. Patient decided to present to the hospital for medical evaluation.. Allergies hydralazine Allergy (Intermediate, Verified 12/06/22 20:38) Shortness of breath Home Medications: Carvedilol [Coreg] 25 mg PO BID 02/24/21 Montelukast [Singulair*] 10 mg PO DAILY 02/24/21 Pantoprazole [Protonix Tab*] 40 mg PO ACB tab 03/02/21 Levothyroxine [Synthroid*] 1 tab PO DAILY 12/07/22 Losartan Potassium 100 mg PO DAILY 12/07/22 Aspirin 81 mg PO DAILY #30 tab.chew 12/08/22 Atorvastatin Calcium [Lipitor] 40 mg PO BEDTIME #30 tab 12/08/22 - Past Medical/Surgical History Diabetic: No -: Hypertension -: Obstructive sleep apnea -: GERD with hiatal hernia -: Tobacco abuse-dipping -: Renal Cell Carcinoma -: Cholecystectomy -: Right Nephrectomy Psychosocial/ Personal History: The patient is , he has 3 children. He works as a bilingual hr generalist. - Family History Father -: Heart disease, Hypertension, Diabetes, Cancer, Other (see notes) Mother -: Diabetes, Cancer Sister -: Hypertension, Blood disorders, Other (see notes) Notes: thyroid issues - Social History Smoking Status: Former smoker Alcohol use: No CD- Drugs: No Caffeine use: Yes Place of Residence: Home Review of Systems General: Sweats, Weakness, Malaise, Other (Fatigue) Eyes: Unremarkable ENT: Unremarkable Respiratory: Unremarkable Cardiovascular: Chest Pain Gastrointestinal: Unremarkable Genitourinary: Unremarkable Musculoskeletal: Back Pain, Leg Pain, Other (bilateral lower extremity pain) Integumentary: Unremarkable Neurological: Weakness, Other (bilateral lower extremity tingling\numbness) Lymphatics: Unremarkable Physical Examination - Physical Exam General: Alert, In no apparent distress, Oriented x3, Cooperative HEENT: Atraumatic, PERRLA, Mucous membr. moist/pink, EOMI, Sclerae nonicteric Neck: Supple, 2+ carotid pulse no bruit, No LAD, Without JVD or thyroid abnormality Respiratory: Clear to auscultation bilaterally, Normal air movement Cardiovascular: No edema, Regular rate/rhythm, Normal S1 S2 Capillary refill: <2 Seconds Gastrointestinal: Normal bowel sounds, Soft and benign, Non-distended, No tenderness Musculoskeletal: No clubbing, No swelling, No tenderness Integumentary: No rashes, No breakdown, No significant lesion Neurological: Normal gait, Normal speech, Normal strength at 5/5 x4 extr, Normal tone, Normal affect Lymphatics: No axilla or inguinal lymphadenopathy - Studies Laboratory Data (last 24 hrs) 12/18/22 08:25: WBC 5.90, Hgb 14.9, Hct 44.3, Plt Count 244 12/18/22 08:25: Sodium 139, Potassium 4.1, BUN 14, Creatinine 1.45 H, Glucose 147 H Assessment and Plan - Plan --Chest pain. To rule out ACS. Serial troponins negative so far. Telemetry to monitor for any significant arrhythmia. Echocardiogram done last week indicates mild diastolic dysfunction. Cardiology consulted. Plans for left heart catheterization in a.m. Continue supportive care. --Slurred speech. Patient has intermittent slurred speech per family report. MRI brain does not indicate any acute intracranial abnormality. Patient's speech is back to baseline at time of assessment. --Hypertension. Stable. Continue home medication. --GERD. Continue home medication. --Hyperlipidemia. Continue statin. --Allergic rhinitis. Continue with home medication. --History of Right renal cell cancer. Status post nephrectomy. Continue supportive care. --CKD 2. Stable. We will continue to monitor renal functions. -- Chronic diastolic CHF. Echocardiogram done last week indicates mild diastolic dysfunction. Daily weight and strict I/O. BNP pending. Further management per sugarcane research technician. -- Hypothyroidism. Continue Synthroid. -- DVT prophylaxis with Lovenox SubQ. Discharge Plan: Home Plan to discharge in: Greater than 2 days - Advance Directives Does patient have a Living Will: No Does patient have a Durable POA for Healthcare: No - Code Status/Comfort Care Code Status Assessed: Yes Physician Review: Patient Assessed, Agree with Above Assessment and Plan Critical Care: No
[2022-12-18 11:26] LABS: Magnesium 2.1 mg/dL (1.6-2.4); Phosphorus 2.4 mg/dL (2.5-4.9); Thyroid Stimulating Hormone 2.36 uIU/mL (0.358-3.740)
--- NOTE | 2022-12-18 11:44 | RAD REPORT ---
EXAM DESCRIPTION: MRI - Brain Wo Cont - 12/18/2022 11:32 am CLINICAL HISTORY: Intermittent slurred speech, Generalized weakness COMPARISON: Head Brain Wo Cont dated 12/06/2022 TECHNIQUE: Sagittal T1-weighted images were obtained along with PD/heavily T2-weighted and T2-FLAIR images. Axial DWI and ADC mapping sequences were also obtained along with coronal heavily T2-weighted images were obtained. FINDINGS: No intracranial hemorrhage, mass or acute infarction. There is no edema or shift of midlin e structures. No extra-axial fluid collections. Signal voids are seen as a normal finding in the lul r intracranial vessels. No significant white matter disease. Mastoid air cells and paranasal sinuses are clear. IMPRESSION: No acute intracranial abnormality. Specifically, no evidence of acute infarct. Noncontra st brain MRI is within normal limits.
[2022-12-18] MEDS: ACETAMINOPHEN 325 MG TABLET PO PRN (12:02)
[2022-12-18] MEDS ORDERED: ACETAMINOPHEN 325 MG TABLET ONE (12:07)
[2022-12-18 16:21] LABS: Urine Bacteria None Seen /HPF (<20); Urine Bilirubin NEGATIVE (Negative); Urine Blood Trace (Negative); Urine Clarity Clear (Clear); Urine Color Yellow (Yellow); Urine Glucose NEGATIVE (Negative); Urine Mucus Slight /HPF (None Seen); Urine Protein TRACE (Negative); Urine Urobilinogen Normal (Normal); Urine pH 5.5 (5.0-7.0)
[2022-12-18] MEDS: POTASS/SODIUM PHOSPHATE 1 PKT POWD.PACK PO SCH ×3 (17:42→18:33)
[2022-12-18] MEDS: carvediloL 25 MG TAB PO SCH (21:11)
[2022-12-19 07:03] LABS: Protime INR 1.15
[2022-12-19 07:04] LABS: Absolute Lymphocytes (CBC) 1.1 K/uL (0.7-4.9); Hematocrit 42.2 % (39.6-49.0); Lymphocytes % 18.3 % (15.3-44.8); MCV 87.3 fL (80-100); MPV 8.4 fL (7.6-11.3); RBC Red Blood Cell Count 4.84 M/uL (4.33-5.43)
[2022-12-19] MEDS: ENOXAPARIN 40 MG/0.4 ML SQ SCH (07:23)
[2022-12-19] MEDS: PANTOPRAZOLE 40MG TABLET PO SCH (07:30)
--- NOTE | 2022-12-19 08:20 | EKG ---
Test Date: 2022-12-18 Test Time: 08:24:38 Managed Services Sales Consultant: MEGAN MEASUREMENT RESULTS: Intervals: Rate: 73 NJ: 180 QRSD: 102 QT: 386 QTc: 425 [place]: P: 16 NJ: 180 QRS: -8 T: -7 INTERPRETIVE STATEMENTS: Normal sinus rhythm Normal ECG Compared to ECG 12/06/2022 18:41:53 Myocardial infarct finding no longer present Electronically Signed On 12-19-22 08:17:40 CDT by Kyle Oseguera
[2022-12-19] MEDS: MONTELUKAST 10 MG TAB PO SCH (08:44)
[2022-12-19] MEDS: ASPIRIN 81 MG CHEWABLE TABLET PO SCH (08:55)
[2022-12-19] MEDS: carvediloL 25 MG TAB PO SCH ×2 (08:55→19:51)
[2022-12-19] MEDS: LOSARTAN POTASSIUM 50 MG TABLET PO SCH (08:55)
[2022-12-19] MEDS: LEVOTHYROXINE SOD 0.075 MG TAB PO SCH (08:55)
[2022-12-19] MEDS ORDERED: FENTANYL CITR 100 MCG/2 ML ONE (09:18)
[2022-12-19] MEDS ORDERED: VERAPAMIL HCL 10 MG/4 ML VIAL IV ONE (09:18)
[2022-12-19] MEDS ORDERED: MIDAZOLAM HCL 2 MG/2 ML INJ ONE (09:18)
[2022-12-19] MEDS ORDERED: ASPIRIN 325 MG TAB ONE (09:19)
[2022-12-19] MEDS ORDERED: CLOPIDOGREL 75 MG TABLET ONE (09:19)
[2022-12-19] MEDS ORDERED: HEPA 1000U/500MLS 2,000 UNIT/1,000 ML BAG IV ONE (09:19)
[2022-12-19] MEDS ORDERED: TICAGRELOR 90 MG TABLET PO ONE (09:19)
[2022-12-19] MEDS ORDERED: NITROGLYCERIN/D5W 25 MG/250 ML BTL IV ONE (09:19)
[2022-12-19] MEDS ORDERED: NITROGLYCERIN 100 MCG/ML SYR (for cath lab use only) IV ONE (09:19)
[2022-12-19] MEDS ORDERED: ATROPINE SULF 1 MG/10 ML SYR IV ONE (09:19)
[2022-12-19] MEDS ORDERED: HEPARIN 5000 UNIT/ML 1 ML VIAL ONE (09:20)
[2022-12-19] MEDS ORDERED: LIDOCAINE 1% 20 ML MDV ONE (09:20)
[2022-12-19] MEDS ORDERED: HEPARIN 10,000 UNIT/10 ML VIAL IV ONE (09:20)
--- NOTE | 2022-12-19 12:13 | CON ---
Date of Consultation: 12/19/2022 Reason For Consultation: Unstable angina. History Of Present Illness: Mr. Vela is 52. Has had a history of hypertension, hypothyroidism, asthma, gastroesophageal reflux disease, and renal cancer, status post nephrectomy. He was here in [facility] for chest pain few weeks ago and had a normal echocardiogram. He had a stress test that showed no ischemia and he had multiple areas of scar tissue. He saw Dr. Christiansen as an outpatient. He was set up to have a catheterization on the 27 of December; however, he developed chest pain and press ure and shortness of breath yesterday and he came to the emergency room. Past Medical History: As stated above. Allergies: HE IS ALLERGIC TO HYDRALAZINE. Medications: Include aspirin, Coreg, Synthroid, losartan, Singulair, and Protonix. Review of Systems: Negative. Social History: Negative. Family History: Negative. Physical Examination: Vital Signs: Stable, afebrile. HEENT: Negative. Neck: Supple with no bruit. Chest: Clear. Cardiac: Revealed a regular rhythm and rate. No murmurs, gallops, or rubs. Abdomen: Benign. Extremities: Revealed no clubbing, cyanosis, or edema. Diagnostic Data: Normal. Creatinine 1.33. Impression And Plan: Unstable angina in a patient with normal echo, recent positive stress test, wit h scar, no ischemia, recurrent chest pain, recurrent shortness of breath. The patient definitely nee ds a heart catheterization to define his coronary anatomy. He understands the risk and the benefits of the procedure and he agrees to proceed. Case was discussed with Dr. Morel. This catheterization w ill be done today. JUAN MANUEL/MINERVA Voice ID: [id number] Report ID: [id number]
[2022-12-19] MEDS ORDERED: NA CHLORIDE 0.9% 500 ML ONE (13:12)
--- NOTE | 2022-12-19 13:21 | P.PN ---
Date of Service: 12/19/22 Subjective Scheduled for cardiac catheterization today. Patient chest pain is better. However he has had a large fixed perfusion defect on stress testing. Physical Examination - Vitals Reviewed - Physical Exam General: Alert, In no apparent distress, Oriented x3, Cooperative Respiratory: Clear to auscultation bilaterally, Normal air movement Cardiovascular: Regular rate/rhythm, Normal S1 S2 Gastrointestinal: Normal bowel sounds, Soft and benign, Non-distended, No tenderness Musculoskeletal: No clubbing, No swelling, No tenderness Neurological: No focal deficits Assessment and Plan - Assessment --Chest pain --Hypertension --GERD --Hyperlipidemia --Allergic rhinitis --History of Right renal cell cancer --CKD 2 -- Chronic diastolic CHF -- Hypothyroidism - Plan -High-sensitivity troponin -Cardiology consultation -Echocardiogram and cardiac catheterization pending -Repeat EKG -Work-up for other etiologies pending cardiac catheterization -Lipid profile pending
[2022-12-19 15:14] VITALS: BMI 33.0
[2022-12-19] MEDS: D5W 1,000 ML with NA BICARB 8.4% 50 MEQ IV SCH ×2 (17:13)
[2022-12-19] MEDS: ACETAMINOPHEN 325 MG TABLET PO PRN (17:13)
--- NOTE | 2022-12-20 01:11 | OP ---
Date of Procedure: 12/19/2022 Surgeon: EMILIA ANDREW Procedures Performed: 1.Selective coronary angiogram. 2.Left heart catheterization. Indication: Unstable angina. Access: Right radial artery 6-Jamaican closed with TR band. Complications: None. Estimated Blood Loss: Bleeding less than 20 mL. Anesthesia: Sedation is none due to low blood pressure. Description Of Procedure: After risks, benefits, and alternatives were explained, the patient agreed to proceed and signed informed consent. The [facility] and prepped and draped in usual sterile fashion. Then, I accessed right radial artery using p ediatric micropuncture, placed 6-Jamaican Slender sheath and took 5-Jamaican [place] 4.0 catheter into aort ic root and engaged the left main, then the right coronary artery, took standard views and then snow ter was pushed over the wire into the LV and measured the LVEDP. Pullback did not record any gradien t. I removed the catheter and sheath and placed TR band with good hemostasis. Findings: 1.Left main: Large and normal. 2.LAD: It is normal, moderate size vessel. 3.Left circumflex: Large and normal. Normal OM branches and normal diagonal branches. 4.RCA: [id number] and normal and it is codominant. 5.Normal LVEDP is 7 mmHg. Conclusion: 1.Normal coronary arteries. 2.Normal left ventricular end-diastolic pressure. Plan: Medical management. SR/MODL Voice ID: [id number] Report ID: [id number]
[2022-12-20] MEDS: LOSARTAN POTASSIUM 50 MG TABLET PO SCH (07:54)
[2022-12-20] MEDS: MONTELUKAST 10 MG TAB PO SCH (07:55)
[2022-12-20] MEDS: carvediloL 25 MG TAB PO SCH (07:55)
[2022-12-20] MEDS: ENOXAPARIN 40 MG/0.4 ML SQ SCH (07:55)
[2022-12-20] MEDS: PANTOPRAZOLE 40MG TABLET PO SCH (07:55)
[2022-12-20] MEDS: LEVOTHYROXINE SOD 0.075 MG TAB PO SCH (07:55)
[2022-12-20] MEDS: ASPIRIN 81 MG CHEWABLE TABLET PO SCH (07:55)
[2022-12-20 08:40] LABS: Absolute Lymphocytes (CBC) 1.3 K/uL (0.7-4.9); Hematocrit 44.2 % (39.6-49.0); Lymphocytes % 23.1 % (15.3-44.8); MCV 88.2 fL (80-100); MPV 8.2 fL (7.6-11.3); RBC Red Blood Cell Count 5.01 M/uL (4.33-5.43)
[2022-12-20 08:56] LABS: Potassium 4.3 mEq/L (3.5-5.1)
[2022-12-20 09:26] VITALS: O2SAT 96
--- NOTE | 2022-12-20 10:18 | P.DS ---
Discharge Date: 12/20/22 Disposition: ROUTINE DISCHARGE Discharge Condition: GOOD Reason for Admission: Chest pain Consultations: Cardiology Brief History of Present Illness: Patient is a 52-year-old male with a past medical history significant for hypertension, MS, renal cell cancer, GERD who presents with complaint of chest pain onset this morning while at work. Patient reported that he has been having chest pain for the past 1 and 1/2 months. Patient reported that chest pain has been intermittent and is located in the substernal chest area. Patient indicated that chest pain radiates to his back. Patient rated pain as 6/10 in severity and described pain as pressure in quality. Patient was seen in the hospital last week for similar complaint. Patient indicated that he is been scheduled for a left heart catheterization with his overhead crane technician next week. Patient reported associated signs and symptoms of bilateral lower extremity pain\tingling\numbness, diaphoresis, fatigue, weakness and generalized malaise. Family reported the patient has been having slurred speech intermittently for quite some time now. Patient denies any other signs and symptoms. Symptoms are aggravated or relieved by nothing. Patient decided to present to the hospital for medical evaluation.. Hospital Course: Pt had a stress test that showed a large fixed defect and some questionable reversible ischemia. however, patient had a cardiac catheterization with completely normal coronaries. Patient still is short of breath just from walking a few feet. I went ahead and ordered a CT of his chest because patient stated that he was told that he may have lesions in his lungs. Chest x-ray was unremarkable. CT of the chest is pending and if it does not show any significant abnormality patient should be stable for discharge home. Vital Signs/Physical Exam: Temp Pulse Resp BP Pulse Ox 97.2 F 62 14 120/86 96 12/20/22 08:00 12/20/22 08:00 12/20/22 08:00 12/20/22 08:00 12/20/22 08:00 General: Alert, In no apparent distress, Oriented x3 Laboratory Data at Discharge: WBC 5.80 thou/uL (4.3-10.9) 12/20/22 08:30 Hgb 14.5 g/dL (13.6-17.9) 12/20/22 08:30 Hct 44.2 % (39.6-49.0) 12/20/22 08:30 Plt Count 236 thou/uL (152-406) 12/20/22 08:30 PT 12.6 SECONDS (9.5-12.5) H 12/19/22 06:30 INR 1.15 12/19/22 06:30 Sodium 138 mEq/L (136-145) 12/20/22 08:30 Potassium 4.3 mEq/L (3.5-5.1) 12/20/22 08:30 BUN 18 mg/dL (7-18) 12/20/22 08:30 Creatinine 1.39 mg/dL (0.70-1.30) H 12/20/22 08:30 Glucose 115 mg/dL (74-106) H 12/20/22 08:30 Phosphorus 2.4 mg/dL (2.5-4.9) L 12/18/22 08:25 Magnesium 2.1 mg/dL (1.6-2.4) 12/18/22 08:25 Home Medications: Carvedilol [Coreg] 25 mg PO BID 02/24/21 Montelukast [Singulair*] 10 mg PO DAILY 02/24/21 Pantoprazole [Protonix Tab*] 40 mg PO ACB tab 03/02/21 Levothyroxine [Synthroid*] 1 tab PO DAILY 12/07/22 Losartan Potassium 100 mg PO DAILY 12/07/22 Aspirin 81 mg PO DAILY #30 tab.chew 12/08/22 Aspirin Chewable [Aspirin Chewable*] 81 mg PO DAILY #0 tab.chew 12/20/22 Cholecalciferol (Vitamin D3) [Vitamin D 5,000 Iu Cap] 5,000 unit PO DAILY #30 cap 12/20/22 Hydrocodone 5/APAP 325 [[place] 5/325*] 1 tab PO Q6H PRN #20 tab 12/20/22 Naph,Mb-Db/K pH,Mbdb [Neutra-Phos Packet] 1 each PO DAILY #30 packet 12/20/22 New Medications: Naph,Mb-Db/K pH,Mbdb [Neutra-Phos Packet] 1 each PO DAILY #30 packet Hydrocodone 5/APAP 325 [[place] 5/325*] 1 tab PO Q6H PRN #20 tab PRN Reason: Pain Scale 5-7 (Moderate) Cholecalciferol (Vitamin D3) [Vitamin D 5,000 Iu Cap] 5,000 unit PO DAILY #30 ca p Physician Discharge Instructions: -DC IV and DC home -Follow-up with PCP in 1 to 2 weeks -Follow-up with Oncology and Cardiology in 1 to 2 weeks -Please call Dr. Morel at [phone] if any questions regarding hospital stay -Please call nursing station at [phone] if any nursing or medication questions -Return to the emergency room if symptoms worsen Diet: AHA Activity: Fall precautions Followup: Timi Manzo MD [ACTIVE - CAN ADMIT] - Harlan Berger MD [Primary Care Provider] - 1-2 Weeks Mario Christiansen MD [ACTIVE - CAN ADMIT] - 1 Week Time spent managing pt's care (in minutes): 35
[2022-12-20] MEDS: D5W 1,000 ML with NA BICARB 8.4% 50 MEQ IV SCH ×2 (11:00)
[2022-12-20 12:08] VITALS: BP 117/75; TEMP 98.2
--- NOTE | 2022-12-20 12:36 | RAD REPORT ---
EXAM DESCRIPTION: CT - Chest For Pe Angio - 12/20/2022 11:37 am CLINICAL HISTORY: Dyspnea COMPARISON: CTANGIO CHEST dated 02/24/2013 TECHNIQUE: Thin axial CT images of the chest were obtained following administration of 80 mL Isovue 370 IV contrast. Multiplanar reconstructions, and maximum intensity projection reconstructions were g enerated and reviewed. Exam utilizes a protocol for optimal evaluation of pulmonary arterial tree. All CT scans are performed using dose optimization technique as appropriate and may include automated exposure control or mA/KV adjustment according to patient size. FINDINGS: Pulmonary arteries are normal. No emboli or other suspicious finding, within limits of gideon e motion artifact which limits evaluation. No acute or significant aorta findings. No mass or infiltrate in the lung parenchyma. Stable 6 millimeter superior segment right lower lobe g ranuloma. Platelike bibasilar atelectatic changes. No pleural thickening or pleural effusion. No pneu mothorax. No abnormal mediastinal or hilar masses or lymphadenopathy seen. No chest wall mass or abnormal axill iary lymphadenopathy. Status post cholecystectomy. IMPRESSION: No evidence of acute central pulmonary emboli, within limits of some motion artifact. No other acute abnormalities.
== END 2022-12-20 13:28 | disposition home or self-care (01) | DRG 287 ==
LOC: ER 08:12 → ERHOLD 10:30 → 4TH 13:39
PROVIDERS: ADMIT Hospitalist; ATTEND Hospitalist
PROC: 4A023N7 Measurement of Cardiac Sampling and Pressure, Left Heart, Percutaneous Approach (ICD-10-PCS; principal; 2022-12-19)
PROC: B2111ZZ Fluoroscopy of Multiple Coronary Arteries using Low Osmolar Contrast (ICD-10-PCS; 2022-12-19)
DX: I20.0 Unstable angina (principal); I50.32 Chronic diastolic (congestive) heart failure; I13.0 Hypertensive heart and chronic kidney disease with heart failure and stage 1 through stage 4 chronic kidney disease, or unspecified chronic kidney disease; N18.2 Chronic kidney disease, stage 2 (mild); R47.81 Slurred speech; R06.02 Shortness of breath; R20.2 Paresthesia of skin; M79.605 Pain in left leg; M79.604 Pain in right leg; R20.0 Anesthesia of skin; R53.83 Other fatigue; R53.1 Weakness; R61 Generalized hyperhidrosis; I99.8 Other disorder of circulatory system; R94.39 Abnormal result of other cardiovascular function study; M54.9 Dorsalgia, unspecified; K21.9 Gastro-esophageal reflux disease without esophagitis; K44.9 Diaphragmatic hernia without obstruction or gangrene; E78.5 Hyperlipidemia, unspecified; E03.9 Hypothyroidism, unspecified; G47.33 Obstructive sleep apnea (adult) (pediatric); J30.9 Allergic rhinitis, unspecified; F17.220 Nicotine dependence, chewing tobacco, uncomplicated; I25.2 Old myocardial infarction; Z79.899 Other long term (current) drug therapy; Z88.8 Allergy status to other drugs, medicaments and biological substances; Z85.53 Personal history of malignant neoplasm of renal pelvis; Z90.5 Acquired absence of kidney; Z90.49 Acquired absence of other specified parts of digestive tract; Z82.49 Family history of ischemic heart disease and other diseases of the circulatory system; Z83.3 Family history of diabetes mellitus; Z80.9 Family history of malignant neoplasm, unspecified; Z83.2 Family history of diseases of the blood and blood-forming organs and certain disorders involving the immune mechanism
CPT/HCPCS: 36415; 70551; 71045; 71275; 76937; 80048; 81001; 82550; 83036; 83735; 83880; 84100; 84439; 84443; 84484; 85025; 85610; 93005; 93458; 99285; C1893; J0461; J1644; J1650; J2001; J2250; J3010; J7040; Q9967

== ENCOUNTER 2023-10-28 06:56 | Emergency (ER) | payer BC ==
--- OUTSIDE RECORDS SUMMARY | 2023-10-28 06:59 | XMS REPORT | Continuity of Care Document ---
Author Name Unknown Address [address] [facility] [address] [place] [address] [facility] thconnect Address [address] [facility] [address] [place] [address] Care Team Providers Care Advanced Practice Professional Name Role Phone ELVIS WHEAT Primary Care Physician Unav ailable ROUSE_F Attending Clinician Unavailable PERCY GARRETT Attending Clinician Unavailable Percy Canchola Attending Clinician Loraine Espinoza Attending Clinician Alexa vailable ROUSE_F Admitting Clinician Unavailable PERCY GARRETT Admitting Clinician Unavailable Physician, No Primary or Family Admitting Clinic kady Unavailable Payers Payer Name Policy Type Policy Number Effective Date Expirati on Date Source [place] [id number] 2023 00:00:00 [employer] [facility] 6 [id number] [facility] [id number] 2017 00:00:00 Problems Condition Name Condition Details Condition Category Status Onset Date Resolution Date Last Treatment Date Treating Clinician Comments Source Seasonal allergy Seasonal Allergy Problem Active 08-01 00:00: 00 [facility] Gastroesop hageal reflux disease Gastroesop hageal Reflux Disease Problem Active 08-01 00:00: 00 [facility] History of migraine History of Migraine Problem Active 08-01 00:00: 00 [facility] Neoplasm of right kidney Neoplasm of Right Kidney Problem Active 08-01 00:00: 00 [facility] Single functional kidney Single Functional Kidney Problem Active 08-01 00:00: 00 [facility] Hypothyroi dism Hypothyroi dism Problem Active 08-01 00:00: 00 [facility] Hyperchole sterolemia Hyperchole sterolemia Problem Active 08-01 00:00: 00 [facility] Mixed anxiety and depressive disorder Mixed Anxiety and Depressive Disorder Problem Active 08-01 00:00: 00 [facility] Hypertensi ve disorder Hypertensi ve Disorder Problem Active 08-01 00:00: 00 [facility] [id number] Chromophob e renal cell carcinoma Problem [facility] Disorder of kidney and/or ureter Renal mass, right Problem [facility] [id number] Hypogonadi sm in male Problem [facility] [id number] Right upper quadrant pain Problem [facility] Premature ejaculatio n Premature ejaculatio n Problem [facility] [id number] S/P laparoscop ic surgery Problem [facility] [id number] Renal cell carcinoma of right kidney Problem [facility] [id number] Erectile dysfunctio n, unspecifie d erectile dysfunctio n type Problem [facility] [id number] Hypertensi ve emergency Problem [facility] Renal mass Renal mass Problem Co mmon [facility] [id number] S/p nephrectom y Problem [facility] Allergies, Adverse Reactions, Alerts Allergy Name Allergy Type Status Severity Reaction(s) Onset Date Inactive Date Treating Clinician Comments Source No Known Allergie s DA Active U 02-22 00:00: 00 [facility] No Known Allergie s DA Active U 02-22 00:00: 00 [facility] NO KNOWN ALLERGIE S Drug Class Active [facility] Social History Social Habit Start Date Stop Date Quantity Comments Source History of Tobacco Use [facility] Exposure to SARS-CoV-2 (event) 2022-09-14 00:00:00 2022-09-24 16:00:00 Not sure [facility] Tobacco use and exposure 2021-01-30 00:00:00 2021-01-30 00:00:00 User of smokeless tobacco [facility] Sex Assigned At 1970 00:00:00 1970 00:00:00 [facility] Smoking Status Start Date Stop Date Source Never Smoker [facility] Medications Ordered Medication Name Filled Medication Name Start Date Stop Date Current Medication? Ordering Clinician Indication Dosage Frequency Signature (SIG) Comments Components Source cloNIDine (CATAPRES) tablet 0.1 mg 09-24 20:45: 00 09-24 20:57 :00 No .1mg 0.1 mg, Oral, ONCE, 1 dose, On Sat09/24/22 at 1545, STAT [facility] Losartan Potassium 100 MG Losartan Potassium 100 MG No 1{table t} QD Losartan Potassium 100 MG Pantoprazol e Sodium 40 MG Pantoprazol e Sodium 40 MG No 1{table t} QD Pantoprazo le Sodium 40 MG aspirin 81 mg chewable tablet Chew 1 tablet every day by oral route. aspirin 81 mg chewable tablet Chew 1 tablet every day by oral route. No 1 Q1D aspirin 81 mg chewable tablet Chew 1 tablet every day by oral route. [facility] Levothyroxi ne Sodium 75 MCG Levothyroxi ne Sodium 75 MCG No QD Levothyrox ine Sodium 75 MCG Cialis 10 MG Cialis 10 MG No 1{table t_as_ne eded} Cialis 10 MG Pantoprazol e Sodium 40 MG Pantoprazol e Sodium 40 MG No 1{table t} QD Pantoprazo le Sodium 40 MG Levothyroxi ne Sodium 25 MCG Levothyroxi ne Sodium 25 MCG No QD Levothyrox ine Sodium 25 MCG Carvedilol 25 MG Carvedilol 25 MG No 1{table t_with_ food} BID Carvedilol 25 MG Singulair 10 MG Singulair 10 MG No 1{table t} QD Singulair 10 MG Carvedilol 25 MG Carvedilol 25 MG No 1{table t_with_ food} BID Carvedilol 25 MG Mobic 15 MG Mobic 15 MG No 1{table t} QD Mobic 15 MG Levothyroxi ne Sodium 75 MCG Levothyroxi ne Sodium 75 MCG No QD Levothyrox ine Sodium 75 MCG Cialis 10 MG Cialis 10 MG No 1{table t_as_ne eded} Cialis 10 MG carvedilol 25 mg tablet TAKE ONE (1) TABLET(S) BY MOUTH TWICE A DAY WITH FOOD. carvedilol 25 mg tablet TAKE ONE (1) TABLET(S) BY MOUTH TWICE A DAY WITH FOOD. No carvedilol 25 mg tablet TAKE ONE (1) TABLET(S) BY MOUTH TWICE A DAY WITH FOOD. [facility] Singulair 10 MG Singulair 10 MG No 1{table t} QD Singulair 10 MG Pantoprazol e Sodium 40 MG Pantoprazol e Sodium 40 MG No 1{table t} QD Pantoprazo le Sodium 40 MG Mobic 15 MG Mobic 15 MG No 1{table t} QD Mobic 15 MG Carvedilol 25 MG Carvedilol 25 MG No 1{table t_with_ food} BID Carvedilol 25 MG Singulair 10 MG Singulair 10 MG No 1{table t} QD Singulair 10 MG Losartan Potassium 100 MG Losartan Potassium 100 MG No 1{table t} QD Losartan Potassium 100 MG Pantoprazol e Sodium 40 MG Pantoprazol e Sodium 40 MG No 1{table t} QD Pantoprazo le Sodium 40 MG Levothyroxi ne Sodium 75 MCG Levothyroxi ne Sodium 75 MCG No QD Levothyrox ine Sodium 75 MCG Cialis 10 MG Cialis 10 MG No 1{table t_as_ne eded} Cialis 10 MG Mobic 15 MG Mobic 15 MG No 1{table t} QD Mobic 15 MG levothyroxi ne 75 mcg tablet TAKE ONE (1) TABLET(S) BY MOUTH ONCE A DAY IN THE MORNING. levothyroxi ne 75 mcg tablet TAKE ONE (1) TABLET(S) BY MOUTH ONCE A DAY IN THE MORNING. No levothyrox ine 75 mcg tablet TAKE ONE (1) TABLET(S) BY MOUTH ONCE A DAY IN THE MORNING. [facility] Carvedilol 25 MG Carvedilol 25 MG No 1{table t_with_ food} BID Carvedilol 25 MG Singulair 10 MG Singulair 10 MG No 1{table t} QD Singulair 10 MG Losartan Potassium 100 MG Losartan Potassium 100 MG No 1{table t} QD Losartan Potassium 100 MG Pantoprazol e Sodium 40 MG Pantoprazol e Sodium 40 MG No 1{table t} QD Pantoprazo le Sodium 40 MG Levothyroxi ne Sodium 75 MCG Levothyroxi ne Sodium 75 MCG No QD Levothyrox ine Sodium 75 MCG Cialis 10 MG Cialis 10 MG No 1{table t_as_ne eded} Cialis 10 MG Mobic 15 MG Mobic 15 MG No 1{table t} QD Mobic 15 MG Carvedilol 25 MG Carvedilol 25 MG No 1{table t_with_ food} BID Carvedilol 25 MG Singulair 10 MG Singulair 10 MG No 1{table t} QD Singulair 10 MG losartan 100 mg tablet TAKE ONE (1) TABLET(S) BY MOUTH ONCE A DAY. losartan 100 mg tablet TAKE ONE (1) TABLET(S) BY MOUTH ONCE A DAY. No losartan 100 mg tablet TAKE ONE (1) TABLET(S) BY MOUTH ONCE A DAY. [facility] montelukast 10 mg tablet TAKE ONE (1) TABLET(S) BY MOUTH EVERY MORNING. montelukast 10 mg tablet TAKE ONE (1) TABLET(S) BY MOUTH EVERY MORNING. No montelukas t 10 mg tablet TAKE ONE (1) TABLET(S) BY MOUTH EVERY MORNING. [facility] pantoprazol e 40 mg tablet,naima yed release TAKE ONE (1) TABLET(S) BY MOUTH EVERY MORNING. pantoprazol e 40 mg tablet,naima yed release TAKE ONE (1) TABLET(S) BY MOUTH EVERY MORNING. No pantoprazo le 40 mg tablet,del ayed release TAKE ONE (1) TABLET(S) BY MOUTH EVERY MORNING. [facility] sertraline 50 mg tablet TAKE ONE (1) TABLET(S) BY MOUTH AT BEDTIME. sertraline 50 mg tablet TAKE ONE (1) TABLET(S) BY MOUTH AT BEDTIME. No sertraline 50 mg tablet TAKE ONE (1) TABLET(S) BY MOUTH AT BEDTIME. [facility] Vital Signs Vital Name Observation Time Observation Value Comments S ource BP Diastolic 2023-08-01 00:00:00 84 mm[Hg] [facility] BP Systolic 2023-08-01 00:00:00 124 mm[Hg] [facility] height 2023-02-20 15:45:00 74 [in_i] Commo n [facility] weight 2023-02-20 15:45:00 273.4 [lb_av] Co mmon [facility] temperature 2023-02-20 15:45:00 98.7 [degF] Com [facility] bmi 2023-02-20 15:45:00 35.1 kg/m2 [facility] n [facility] oximetry 2023-02-20 15:45:00 98.7 % [facility] respiratory rate 2023-02-20 15:45:00 18 /min [facility] blood pressure systolic 2023-02-20 15:45:00 129 mm[Hg] [facility] blood pressure diastolic 2023-02-20 15:45:00 76 mm[Hg] [facility] height 2022-10-04 14:15:00 74 [in_i] Commo n [facility] weight 2022-10-04 14:15:00 280 [lb_av] Comm on [facility] temperature 2022-10-04 14:15:00 98 [degF] Comm on [facility] bmi 2022-10-04 14:15:00 35.95 kg/m2 Comm on [facility] oximetry 2022-10-04 14:15:00 97 % Commo n [facility] respiratory rate 2022-10-04 14:15:00 18 /min [facility] blood pressure systolic 2022-10-04 14:15:00 164 mm[Hg] [facility] blood pressure diastolic 2022-10-04 14:15:00 90 mm[Hg] [facility] Systolic blood pressure 2022-09-24 21:00:00 153 mm[Hg] [facility] Diastolic blood pressure 2022-09-24 21:00:00 98 mm[Hg] [facility] Heart rate 2022-09-24 21:00:00 77 /min [facility] Respiratory rate 2022-09-24 21:00:00 18 /min [facility] Oxygen saturation in Arterial blood by Pulse oximetry 2022-09-24 21:00:00 95 /min [facility] Body temperature 2022-09-24 19:43:00 37 Tamie [facility] Body weight 2022-09-24 19:43:00 125.646 kg [facility] BMI 2022-09-24 19:43:00 33.72 kg/m2 [facility] height 2022-07-04 09:00:00 74 [in_i] Commo n [facility] weight 2022-07-04 09:00:00 270 [lb_av] Comm on [facility] temperature 2022-07-04 09:00:00 97.9 [degF] Com mon [facility] bmi 2022-07-04 09:00:00 34.66 kg/m2 Comm on [facility] oximetry 2022-07-04 09:00:00 97 % Commo n [facility] blood pressure systolic 2022-07-04 09:00:00 142 mm[Hg] [facility] blood pressure diastolic 2022-07-04 09:00:00 86 mm[Hg] [facility] height 2021-12-13 09:15:00 74 [in_i] Commo n [facility] weight 2021-12-13 09:15:00 278.8 [lb_av] Co mmon [facility] temperature 2021-12-13 09:15:00 98.5 [degF] Com mon [facility] bmi 2021-12-13 09:15:00 35.79 kg/m2 Comm on [facility] oximetry 2021-12-13 09:15:00 99 % Commo n [facility] respiratory rate 2021-12-13 09:15:00 16 /min [facility] blood pressure systolic 2021-12-13 09:15:00 136 mm[Hg] [facility] blood pressure diastolic 2021-12-13 09:15:00 88 mm[Hg] [facility] Procedures Procedure Date / Time Performed Performing Clinician Source PVR 2023-02-20 00:00:[address] [facility] XR CHEST 1 VW 2022-09-24 20:36:11 [facility] TROPONIN I 2022-09-24 20:10:00 Percy Garrett [facility] COMP. METABOLIC PANEL ([id number]) 2022-09-24 20:10:00 Percy Garrett [facility] CBC WITH DIFF 2022-09-24 20:10:00 [facility] NOTICE OF PRIVACY PRACTICES 2022-09-24 19:39:29 Doctor Unassigned, Stella [facility] Cholecystectomy [facility] Total Excision of Right Kidney [facility] Plan of Care Planned Activity Planned Date Details Comments Source Diagnostic Test Pending 2023-08-01 00:00:00 CMP, serum or plasma [code = CMP, serum or plasma] [facility] Diagnostic Test Pending 2023-08-01 00:00:00 TSH + free T4, serum [code = TSH + free T4, serum] [facility] Future Appointment 2024-01-30 13:30:00 Jamel Goodson [address], [place] [address] [facility] Future Appointment 2024-01-30 00:00:00 Jamel Goodson [address], [place] [address] [facility] Instructions [facility] Encounters Start Date/Time End Date/Time Encounter Type Admission Type Attending Clinicians Care Facility Care Department Encounter ID Source 2021-12-13 09:02:03 Outpatient [facility] [id number] [facility] 2023-08-01 00:00:00 2023-08-01 00:00:00 Outpatient [facility]SE[facility] [id number] [facility] 2023-08-01 00:00:00 2023-08-01 00:00:00 ANNETTE Pike: [address], [address], [place] [address] , Ph. [facility], DR. HENSLEY [id number] [facility] 2023-07-29 00:00:00 2023-07-29 00:00:00 Outpatient [facility]OUSE[facility]F [facility] [id number] [facility] 2023-07-22 00:00:00 2023-07-22 00:00:00 (TEL) [facility] [id number] [facility] 2023-02-20 00:00:00 2023-02-20 00:00:00 OFFICE VISIT ESTAB PT LEVEL 3 [facility] [id number] [facility] 2022-10-04 00:00:00 2022-10-04 00:00:00 OFFICE VISIT ESTAB PT LEVEL 4 [facility] [id number] [facility] 2022-09-24 14:44:00 2022-09-24 17:38:00 Emergency X PERCY GARRETT [facility] ERT [id number] [facility] 2022-09-24 14:44:00 2022-09-24 17:38:00 Emergency Percy Garrett [facility] [id number] [facility] 2022-07-04 00:00:00 2022-07-04 00:00:00 OFFICE VISIT EST PT LEVEL 3 STLMLC STLMLC [id number] [facility] 2021-12-13 00:00:00 2021-12-13 00:00:00 OFFICE VISIT ESTAB PT LEVEL 5 STLMLC STLMLC [id number] [facility] 2021-02-23 05:20:00 2021-02-23 05:20:00 Inpatient Loraine Kaplan [facility] DAYS [id number] Results Test Description Test Time Test Comments Results Result Co mments Source [facility] ([id number])2022-09-24 20:36:11* Test Item Value Reference Range Interpretation Comme nts NA (test code = 6508024328) 142 mmol/L 135-145 K (test code = 9943871099) 4.5 mmol/L 3.5-5.0 CL (test code = 3807018623) 106 mmol/L 98-108 CO2 TOTAL (test code = 6857310269) 27 mmol/L 23-31 AGAP (test code = 9656708092) 9 2-16 BUN (test code = 3998289603) 17 mg/dL 7-23 GLUCOSE (test code = 1129220271) 110 mg/dL 70-110 CREATININE (test code = 3217026194) 1.48 mg/dL 0.60-1.25 H TOTAL BILI (test code = 1613418014) 0.6 mg/dL 0.1-1.1 CALCIUM (test code = 0678712398) 8.9 mg/dL 8.6-10.6 T PROTEIN (test code = 1322160933) 7.6 g/dL 6.3-8.2 ALBUMIN (test code = 0342218540) 4.1 g/dL 3.5-5.0 ALK PHOS (test code = 0980392944) 110 U/L 34-122 ALTv (test code = 1742-6) 30 U/L 5-50 AST(SGOT) (test code = 1925605346) 22 U/L 13-40 eGFR (test code = 7531324104) 49.9 mL/min/1.73m2 JAYLA (test code = JAYLA) Association of [...] or abnormalities in imaging tests). Lab Interpretation (test code = 21088-5) Abnormal [facility] WITH [id number] 20:30:50* Test Item Value Reference Range Interpretation Comme nts WBC (test code = 6690-2) 5.91 See_Comment [Automated messa ge] The system which generated this result transmitted reference range: 4.20 - 10.70 10*3/?L. The reference range was not used to interpret this result as normal/abnormal. RBC (test code = 789-8) 5.01 See_Comment [Automated messa ge] The system which generated this result transmitted reference range: 4.26 - 5.52 10*6/?L. The reference range was not used to interpret this result as normal/abnormal. HGB (test code = 718-7) 14.8 g/dL 12.2-16.4 HCT (test code = 4544-3) 44.6 % 38.4-49.3 MCV (test code = 787-2) 89.0 fL 81.7-95.6 MCH (test code = 785-6) 29.5 pg 26.1-32.7 MCHC (test code = 786-4) 33.2 g/dL 31.2-35.0 RDW-SD (test code = 60728-1) 41.8 fL 38.5-51.6 RDW-CV (test code = 788-0) 12.8 % 12.1-15.4 PLT (test code = 777-3) 225 See_Comment [Automated messa ge] The system which generated this result transmitted reference range: 150 - 328 10*3/?L. The reference range was not used to interpret this result as normal/abnormal. MPV (test code = 78473-4) 10.2 fL 9.8-13.0 NRBC/100 WBC (test code = 7871751204) 0.0 See_Comment [Automated me ssage] The system which generated this result transmitted reference range: 0.0 - 10.0 /100 WBCs. The reference range was not used to interpret this result as normal/abnormal. NRBC x10^3 (test code = 0006785998) See_Comment [Automated me ssage] The system which generated this result transmitted reference range: 10*3/?L. The reference range was not used to interpret this result as normal/abnormal. GRAN MAT (NEUT) % (test code = 770-8) 58.4 % IMM GRAN % (test code = 6789973500) 0.50 % LYMPH % (test code = 736-9) 25.5 % MONO % (test code = 5905-5) 7.8 % EOS % (test code = 713-8) 7.1 % BASO % (test code = 706-2) 0.7 % GRAN MAT x10^3(ANC) (test code = 0266975754) 3.45 10*3/uL 1.99-6.95 IMM GRAN x10^3 (test code = 2714155167) 0.03 10*3/uL 0.00-0.06 LYMPH x10^3 (test code = 731-0) 1.51 10*3/uL 1.09-3.23 MONO x10^3 (test code = 742-7) 0.46 10*3/uL 0.36-1.02 EOS x10^3 (test code = 711-2) 0.42 10*3/uL 0.06-0.53 BASO x10^3 (test code = 704-7) 0.04 10*3/uL 0.01-0.09 [facility] [id number] 14:48:00* Test Item Value Reference Range Interpretation Comme nts SURGICAL PATH SPECIMENS (test code = S) RUN DATE: 02/27/21 [facility] PAGE 1 RUN TIME: 1448 Specimen Inquiry RUN USER: INTERFACE MARSHALL ENT: ASHLEY MCGHEE LOC: [place] U #: [id number] AGE/SX: 50/M ROOM: RE02/23/21REG DR: Loraine Espinoza : 70 BED: DIS: STATUS: [facility] TLOC: SPEC #: [id number] RECD: 02/24/21 STATUS: GODWIN MILIAN #: [id number] MARGARITA: 02/23/21- SUBM DR: Loraine Espinoza MD ENTERED: 02/24/21 SP TYPE: SURG SPEC OTHR DR: No Primary or Family PhysicianORDERED: [id number] CODES: [id number] - RECTUM, NOS COPIES TO: No Primary or Family Physician Loraine Espinoza MD [address] [place] [address] [address] [place] [address] [email or web address] PROCEDURES: [id number] (02/24/21) TISSUES: RECTUM, NOS - POLYP FINAL [...] inked stalk margin. --- Signed Elvis Louie Carmen AQUINO 02/27/21 1448 END OF REPORT BASIC METABOLIC [id number] 12:38:00* Test Item Value Reference Range Interpretation Comme nts SODIUM (test code = NA) 140 mEq/L 134-147 N POTASSIUM (test code = K) 3.4 mEq/L 3.4-5.0 N CHLORIDE (test code = CL) 106 mEq/L 100-108 N CARBON DIOXIDE (test code = CO2) 27 mEq/l 21-33 N ANION GAP (test code = GAP) 10 0-20 N GLUCOSE (test code = GLU) 190 mg/dL 70-110 H BLOOD UREA NITROGEN (test code = BUN) 9 mg/dL 7-18 N GLOMERULAR FILTRATION RATE (test code = GFR) 89.3 90-95 L Units of measure = ml/min/1.73 m2 CREATININE (test code = CREAT) 0.9 mg/dL 0.6-1.3 N CALCIUM (test code = CA) 9.0 mg/dL 8.0-10.5 N COVID 19 Asymptomatic IH [id number] 15:53:00* Test Item Value Reference Range Interpretation Comme nts COVID 19 Asymptomatic IH AG (test code = COVNONPUIAG) Negative Negative A negative resul t is presumptive and should be confirmedwith an FDA authorized molecular assay, if necessary forpatient management.A positive result does not rule out co-infections withother pathogens.This test detects both viable (live) and non-viable,SARS-CoV, and SARS-CoV-2. Test performance depends on theamount of virus (antigen) in the sample.This test has not been FDA cleared or approved; the test hasbeen authorized by FDA under an Emergency Use Authorization(EUA) for use by laboratories certified under the CLIA thatmeet the requirements to perform moderate, high or waivedcomplexity tests. PROTHROMBIN [id number] 15:34:00* Test Item Value Reference Range Interpretation Comme nts PROTHROMBIN TIME PATIENT (test code = PTP) 12.8 SECONDS 9.3-12.9 N INTERNATIONAL NORMAL RATIO (test code = INR) 1.2 0.8-1.2 N TARGET INR BY INDICATION Indication INR1. Prophylaxis of venous thrombosis 2.0 - 3.0 (orthopedic surgery), Prophylaxis of venous thrombosis (other than high-risk surgery), Treatment of Deep Vein Thrombosis/Pulmonary Embolism, Prevention of systemic embolism - Tissue heart valves, Acute Myocardial Infarction (to prevent systemic embolism), Valvular heart disease, Atrial Fibrillation, Bileaflet mechanical valve in aortic position.2. Mechanical prosthetic valves (high risk), 2.5 - 3.5 Presence of Lupus Anticoagulant or Antiphospholipid Antibodies, Prevention of systemic embolism - Acute Myocardial Infarction (to prevent recurrent infarct). THROMBOPLASTIN TIME [id number] 15:34:00* Test Item Value Reference Range Interpretation Comme [facility] THROMBOPLASTIN TIME PARTIAL (test code = PTT) 33.0 Seconds 25.0-39.5 N Therapeutic Rang e: 50.4 - 88.3 Seconds Effective 10/21/2018 BASIC METABOLIC [id number] 15:30:00* Test Item Value Reference Range Interpretation Comme nts SODIUM (test code = NA) 142 mEq/L 134-147 N POTASSIUM (test code = K) 3.9 mEq/L 3.4-5.0 N CHLORIDE (test code = CL) 110 mEq/L 100-108 H CARBON DIOXIDE (test code = CO2) 27 mEq/l 21-33 N ANION GAP (test code = GAP) 9 0-20 N GLUCOSE (test code = GLU) 71 mg/dL 70-110 N BLOOD UREA NITROGEN (test code = BUN) 12 mg/dL 7-18 N GLOMERULAR FILTRATION RATE (test code = GFR) 89.3 90-95 L Units of measure = ml/min/1.73 m2 CREATININE (test code = CREAT) 0.9 mg/dL 0.6-1.3 N CALCIUM (test code = CA) 9.2 mg/dL 8.0-10.5 N CBC W/AUTO [id number] 15:20:00* Test Item Value Reference Range Interpretation Comme nts WHITE BLOOD CELL (test code = WBC) 6.9 x10 3/uL 4.5-11.0 N RED BLOOD CELL (test code = RBC) 5.09 x10 6/uL 4.00-5.60 N HEMOGLOBIN (test code = HGB) 15.4 g/dL 12.5-16.9 N HEMATOCRIT (test code = HCT) 46.3 % 37.5-50.7 N MEAN CELL VOLUME (test code = MCV) 91.0 fL 81.0-99.0 N MEAN CELL HGB (test code = MCH) 30.3 pg 27.0-33.0 N MEAN CELL HGB CONCETRATION (test code = MCHC) 33.3 g/dL 33.0-37.0 N RED CELL DISTRIBUTION WIDTH CV (test code = RDW) 12.6 % 11.5-14.5 N RED CELL DISTRIBUTION WIDTH SD (test code = RDW-SD) 41.3 fL 37.0-54.0 N PLATELET COUNT (test code = PLT) 280 x10 3/uL 150-400 N MEAN PLATELET VOLUME (test c ode = MPV) 10.5 fL 7.0-9.0 H NEUTROPHIL % (test code = NT%) 57.0 % 56.0-77.0 N IMMATURE GRANULOCYTE % (test code = IG%) 0.3 % 0.0-2.0 N LYMPHOCYTE % (test code = LY%) 27.7 % 14.0-32.0 N MONOCYTE % (test code = MO%) 9.2 % 4.8-9.0 H EOSINOPHIL % (test code = EO%) 5.2 % 0.3-3.7 H BASOPHIL % (test code = BA%) 0.6 % 0.0-2.0 N NUCLEATED RBC % (test code = NRBC%) 0.0 % 0-0 N NEUTROPHIL # (test code = NT#) 3.91 x10 3/uL 2.0-7.6 N IMMATURE GRANULOCYTE # (test code = IG#) 0.02 x10 3/uL 0.00-0.03 N LYMPHOCYTE # (test code = LY#) 1.90 x10 3/uL 1.0-3.8 N MONOCYTE # (test code = MO#) 0.63 x10 3/uL 0.1-0.8 N EOSINOPHIL # (test code = EO#) 0.36 x10 3/uL 0.0-0.2 H BASOPHIL # (test code = BA#) 0.04 x10 3/uL 0.0-0.2 N NUCLEATED RBC # (test code = NRBC#) 0.00 x10 3/uL 0.0-0.1 N MANUAL DIFF REQUIRED (test c ode = MDIFF) NO - XR CHEST 2 [id number] 00:00:00 [facility] 1970 Sex: MFAX: Telma Mendoza [phone] [place]: St: PRE FAX: Glory Coker [phone] Name: ASHLEY MCGHEE [facility] : 1970 Age/S: 50/M [address] [place] [address] Unit #: [id number] Loc: [place] [address] Phys: Telma Giron MD Acct: [id number] Dis Date: Status: PRE SDC PHONE #: [phone] Exam Date: 02/22/2021 1509 FAX #: [phone] Reason: PREOP EXAMS: CPT CODE: [id number] XR CHEST 2 V 56994 PROCEDURE INFORMATION: Exam: XR Chest Exam date [...] of the upper mediastinum. Bones/joints: No gross ac willard findings. IMPRESSION: No acute cardiopulmonary findings There appears to be widening of the upper mediastinum. This may represent underlying thoracic aortic aneurysm. Further evaluation with CTA would be helpful. at 1533 Reported and signed by: Coreen Saavedra D.O. CC: Telma Giron MD; Loraine Espinoza MD Technologist: Renetta Rutledge RT(R) Trnscrd Date/Time/By: 02/22/2021 (9623) : By: [email or web address] Orig Print D/T: S: 02/22/2021 (1533) PAGE 1 Signed Report Notes Date/Time Note Provider Source 2021-02-23 14:22:00 [id number]:2 [id number] [place], [place] [address] PATIENT NAME: ASHLEY MCGHEE ADMIT DATE: 02/23/21ACCOUNT NO: [id number] ROOM NO: AGE: 50 REPORT TYPE: OPERATIVE REPORT SEX: M ADMITTING PHYSICIAN: ATTENDING PHYSICIAN:Loraine Espinoza MD OPERATION DATE: 02/23/2021 PREOPERATIVE DIAGNOSES: Rectal polyp and right kidney cancer. POSTOPERATIVE DIAGNOSES: Rectal polyp and right kidney cancer. PROCEDURES: Transanal minimally invasive surgery, full-thickness resection ofrectal polyp. SURGEON: Loraine Espinoza MD. INVESTIGATOR UTILITY BILL COMPLAINTS: Nara Vasques. ANESTHESIA: General. INTRAVENOUS FLUIDS: 700 mL. URINE OUTPUT: 100 mL. ESTIMATED BLOOD LOSS: Less than 5 mL. SPECIMEN: Rectal polyp. FINDINGS: Villous polyp of 3 x 3 cm with a narrow base at the leftanterolateral rectal wall 12 cm proximal to the dentate line. DISPOSITION: Tolerated the procedure well, extubated in the operating room, andtransferred to postanesthesia care unit in stable hemodynamic condition. COUNTS: Needle, sponge, and instrument count correct x2. INDICATIONS FOR PROCEDURE: The patient is a 50-year-old man who has beendiagnosed with a nonresectable rectal polyp during colonoscopy. He was alsodiagnosed at the same time with a right kidney cancer and he is set to undergosurgery next week. 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 Informedconsent was obtained. All questions were answered to his satisfaction. This PATIENT NAME: ASHLEY MCGHEE procedure requires a first assistnt for handling the accessorty laparoscopic instruments during the procedure and help with exposure, suction and camera visualization and asssist during the rectal wall approximation. PROCEDURE IN DETAIL: The patient was brought to the operating room and placedon the operating room, placed on the operating table in supine position.General endotracheal anesthesia was induced successfully. Subsequently, he wasplaced in lithotomy position on candy canes. Perineum was prepped and draped inthe usual standard sterile fashion. We performed manual dilation of the analsphincter. We used a total of 10 mL of 0.25% Marcaine plain for localanesthesia and subsequently we dilated with all sizes of Hill-Mercado retractorand we inserted the GelPOINT path tunneled port and with a dilator and securedwith 0 silk ties and the sutures in the perianal skin verge. Through this, wecapped with a Gelport and through this, we placed an 8-mm applied AirSeal ConMedport and insufflated to 12 mmHg and we used a LigaSure L-hook device and underdirect visualization with a 5-mm 45-degree camera and the scope of our [facility], we identified the polyp at the 12 cm proximal to the anal verge andusing the LigaSure L-hook device, we hemostatically divided the polyp in afull-thickness fashion and off the rectum. We excised the polyp and brought outfrom the tunnel port after ligating the pneumorectum temporarily. The polyp wassubmitted to pathology. Subsequently, we recapped the port and reinsufflatedpneumoperitoneum and then we used a 2-0 Vicryl on SH and we performedfull-thickness approximation of the rectal wall edges with a total of 4 sutures. We used TK knot and approximated the edges by finding the TK knot gun and ahemostatic clip was applied over each suture. The hemostasis was satisfactory.The approximation line was complete. There was no bleeding. There was no fecalspillage. We evacuated the pneumorectum. We removed the Gelport. There was nobleeding. There was no need for dressing. The patient tolerated the procedurewell and transferred to postanesthesia care unit in stable hemodynamiccondition. IV antibiotics were given preoperatively and the patient will bedischarged home on Flagyl. The polyp appeared to have a benign villousappearance. Dictated By: Loraine Espinoza MD WT: OP:GTRAV/ROSALIND/NTSDD: 02/23/2021 14:22:25DT: 02/23/2021 15:06:43Conf#: [id number]/DID#: [id number] Authenticated and Edited by Loraine Espinoza MD On 02/24/21 9:06:10 AM at 0907 PATIENT NAME: ASHLEY MCGHEE [id number]:06:00G.[id number] lable for patient [id number]:08:03 [facility] 2021-02-22 15:02:00 [id number]/[id number]/ [id number]/4MmnQTW/XBrGGTX2+[id number]:0 2:[id number] [place] [address] PATIENT NAME: ASHLEY MCGHEE ADMIT DATE: ACCOUNT NO: [id number] ROOM NO: AGE: 50 REPORT TYPE: eELECTROCARDIOGRAM REPORT SEX: M ADMITTING PHYSICIAN: ATTENDING PHYSICIAN:Loraine Espinoza MD Order:[id number] Reason : PREOP Test Date/Time Stamp:SatFeb 22 2021 15:02:49Blood Pressure : / mmHGVent. Rate : 060 BPM Atrial Rate : 060 BPM P-R Int : 176 ms QRS Dur : 106 ms QT Int : 424 ms P-R-T Axes : 026 028 035 degrees QTc Int : 424 ms Normal sinus rhythmNormal ECGPRE_OPConfirmed by RENETTA MOORE MD ([id number]) on 02/22/2021 3:26:26 PM Referred By: Loraine Espinoza Confirmed by:RENETTA MOORE MD at 1526 PATIENT NAME: ASHLEY MCGHEE .[id number] AVAvailable for patient [id number]:26:52 [facility]"
[2023-10-28] MEDS ORDERED: HYDROCODONE/APAP 5/325 MG TAB ONE (07:25)
[2023-10-28] MEDS ORDERED: DIAZEPAM 5 MG TABLET ONE (07:25)
--- NOTE | 2023-10-28 09:56 | RAD REPORT ---
EXAM DESCRIPTION: RAD - Lumbar Spine 3 Views - 10/28/2023 8:19 am CLINICAL HISTORY: LOWER BACK PAIN COMPARISON: No comparisons TECHNIQUE: Lumbar spine, 3 views. FINDINGS: Lumbar vertebral bodies are normal in height and retrolisthesis of L5 over S1 measuring 4 mm. No fracture or acute bony process seen. Mild endplate and facet changes along the lower lumbar sp ine. No disc space narrowing. No other significant findings. IMPRESSION: Mild degenerative changes as above. No acute osseous abnormality.
--- NOTE | 2023-10-28 10:05 | ER ---
Nurse's Notes [facility] Name: Gael Vela Age: 53 yrs Sex: Male : 1970 Arrival Date: 10/28/2023 Time: 06:56 Bed 5 Private MD: Diagnosis: Low back pain Presentation: 10/27 07:04 Chief complaint: Patient states: left low back pain that began Saturday. aa5 07:04 Coronavirus screen: At this time, the client does not indicate any symptoms associated aa5 with coronavirus-19. Ebola Screen: Patient denies travel to an Ebola-affected area in the 21 days before illness onset. Initial Sepsis Screen: Does the patient meet any 2 criteria? No. Patient's initial sepsis screen is negative. Does the patient have a suspected source of infection? No. Patient's initial sepsis screen is negative. Risk Assessment: Do you want to hurt yourself or someone else? Patient reports no desire to harm self or others. Onset of symptoms was October 2023. 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 - Infectious Disease History:: Denies. - Social history:: Smoking status: Patient reports use of chewing tobacco. Screenin:32 [facility] ED Fall Risk Assessment (Adult) History of falling in the last 3 months, ko1 including since admission No falls in past 3 months (0 pts) Confusion or Disorientation No (0 pts) Intoxicated or Sedated No (0 pts) Impaired Gait No (0 pts) Mobility Assist Device Used No (0 pt) Altered Elimination No (0 pt) Score/Fall Risk Level 0 - 2 = Low Risk Oriented to surroundings, Maintained a safe environment, Educated pt \T\ family on fall prevention, incl call for assistance when getting out of bed, Assessed \T\ reinforced patient's understanding of fall precautions, Provided non-skid footwear, Hourly rounding (assess needs \T\ fall precautionary measures) done, Used ambulatory aids as needed (educated on \T\ assisted with), Used gait belt as appropriate. Abuse screen: Denies threats or abuse. Denies injuries from another. Nutritional screening: No deficits noted. Tuberculosis screening: No symptoms or risk factors identified. Assessment: 07:32 General: Appears uncomfortable, Behavior is calm, cooperative, appropriate for age. ko1 Pain: Complains of pain in left low back. Neuro: Level of Consciousness is awake, alert, obeys commands, Oriented to person, place, time, situation, Appropriate for age [employer] Supervisor are equal bilaterally Moves all extremities. Full function Gait is steady, Speech is normal. Cardiovascular: No deficits noted. Respiratory: No deficits noted. GI: No deficits noted. : No deficits noted. EENT: No deficits noted. Derm: No deficits noted. Musculoskeletal: No deficits noted. 10:00 Reassessment: Patient appears in no apparent distress at this time. No changes from mb9 previously documented assessment. Patient and/or family updated on plan of care and expected duration. Pain level reassessed. Patient is alert, oriented x 3, equal unlabored respirations, skin warm/dry/pink. Vital Signs: 07:04 BP 143 / 94; Pulse 62; Resp 18 S; Temp 97.9(TE); Pulse Ox 98% on R/A; Weight 127.01 kg aa5 (R); Height 6 ft. 4 in. (R); 09:13 BP 138 / 88; Pulse 60; Resp 16; Pulse Ox 99% ; ko1 09:56 BP 125 / 84; Pulse 69; Resp 17; Pulse Ox 99% on R/A; ld1 07:04 Body Mass Index 34.08 (127.01 kg, 193.04 cm) aa5 ED Course: 06:59 Patient arrived in ED. mg5 07:02 Otis Crain DO is Attending Physician. ms3 07:04 Arm band placed on Patient placed in an exam room, on a stretcher. aa5 07:19 Triage completed. aa5 07:24 Paula Plummer, MERT is Primary Nurse. ko1 07:32 Patient has correct armband on for positive identification. Allergy band placed. Bed in ko1 low position. Call light in reach. Side rails up X2. Provided Education on: meds/xray. Pulse ox on. NIBP on. Door closed. Noise minimized. 07:32 No provider procedures requiring assistance completed. Patient did not have IV access ko1 during this emergency room visit. 08:21 Lumbar Spine (3 Views) XRAY In Process Unspecified. EDMS 10:04 Fabio Saavedra DO is Referral Physician. ms3 Administered Medications: 07:28 Drug: Beason PO 5 mg-325 mg 1 tabs PO once Route: PO; ko1 07:58 Follow up: Response: No adverse reaction; Pain is decreased ko1 07:28 Drug: Diazepam PO 5 mg PO once Route: PO; ko1 07:58 Follow up: Response: No adverse reaction; Pain is decreased ko1 Medication: 09:13 VIS not applicable for this client. ko1 Outcome: 10:04 Discharge ordered by MD. ms3 10:14 Discharged to home ambulatory, mb9 10:14 Condition: stable 10:14 Discharge instructions given to patient, Instructed on discharge instructions, follow up and referral plans. Demonstrated understanding of instructions, follow-up care, medications, Prescriptions given X 1, 10:14 Patient left the ED. [email or web address] Signatures: Dispatcher [employer] EDMS Marianna Becerra RN RN aa5 Otis Crain DO DO ms3 Renetta Crain RN RN ld1 Paula Plummer RN RN Lashon Cabrera RN RN mb9 Marie Orosco mg5 Corrections: (The following items were deleted from the chart) 07:15 07:08 PMHx: borderline HTN; ld1 aa5
--- NOTE | 2023-10-28 10:05 | EDPHYS ---
Physician Documentation [facility] Name: Gael Vela Age: 53 yrs Sex: Male : 1970 Arrival Date: 10/28/2023 Time: 06:56 Bed 5 Private MD: ED Physician Otis Crain HPI: 10/27 07:34 This 53 yrs old Male presents to ER via Ambulatory with complaints of Back Pain. ms3 07:34 53-year-old male with past medical history of GERD, headaches, hypertension, ms3 hypothyroidism, renal cell carcinoma presents to the emergency department for left lower back pain that began on Saturday. Patient states he was working in his yard when he slipped, but did not fall. Patient states the pain is worse when applying pressure to his left leg or twisting. Patient states standing still improves his pain. Patient rates the pain a 5/10. Patient states he took Advil at 530 this morning.. 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 - Infectious Disease History:: Denies. - Social history:: Smoking status: Patient reports use of chewing tobacco. ROS: 07:34 Constitutional: Negative for fever, and chills. Neck: Negative for injury, pain, and ms3 swelling, Cardiovascular: Negative for chest pain, and palpitations. Respiratory: Negative for shortness of breath, cough, wheezing, and pleuritic chest pain, Abdomen/GI: Negative for abdominal pain, nausea, vomiting, diarrhea, and constipation, Skin: Negative for injury, rash, and discoloration, 07:34 Back: Positive for pain with movement, Negative for injury or acute deformity, radiated pain, Exam: 07:34 Constitutional: This is a well developed, well nourished patient who is awake, alert, ms3 and in no acute distress. Head/Face: Normocephalic, atraumatic. Chest/axilla: Normal chest wall appearance and motion. Nontender with no deformity. Cardiovascular: Regular rate and rhythm with a normal S1 and S2. No gallops, murmurs, or rubs. Normal PMI, no JVD. No pulse deficits. Respiratory: Lungs have equal breath sounds bilaterally, clear to auscultation and percussion. No rales, rhonchi or wheezes noted. No increased work of breathing, no retractions or nasal flaring. Abdomen/GI: Soft, non-tender, with normal bowel sounds. No distension or tympany. No guarding or rebound. No evidence of tenderness throughout. Skin: Warm, dry with normal turgor. Normal color with no rashes, no lesions, and no evidence of cellulitis. 07:34 Back: pain, that is moderate, CVA tenderness, is absent, vertebral tenderness, is not appreciated, Left lumbar paraspinal muscle tenderness, Vital Signs: 07:04 BP 143 / 94; Pulse 62; Resp 18 S; Temp 97.9(TE); Pulse Ox 98% on R/A; Weight 127.01 kg aa5 (R); Height 6 ft. 4 in. (R); 09:13 BP 138 / 88; Pulse 60; Resp 16; Pulse Ox 99% ; ko1 09:56 BP 125 / 84; Pulse 69; Resp 17; Pulse Ox 99% on R/A; ld1 07:04 Body Mass Index 34.08 (127.01 kg, 193.04 cm) aa5 MDM: 07:27 Patient medically screened. ms3 07:34 Differential diagnosis: Metastatic Disease Muscle spasm versus degenerative disc ms3 disease. 20:02 Data reviewed: vital signs, nurses notes, radiologic studies, and as a result, I will ms3 discharge patient. I considered the following discharge prescriptions or medication management in the emergency department Medications were administered in the Emergency Department. See MAR. Independent interpretation of the following test(s) in the Emergency Department X-Ray: My interpretation is Lumbar x-ray images reviewed at time of visit did not show sclerotic lesion or fracture. Care significantly affected by the following chronic conditions: Hypertension, Cancer. Counseling: I had a detailed discussion with the patient and/or guardian regarding the historical points, exam findings, and any diagnostic results supporting the discharge/admit diagnosis, radiology results, the need for outpatient follow up, to return to the emergency department if symptoms worsen or persist or if there are any questions or concerns that arise at home. Special discussion: I discussed with the patient/guardian in detail that at this point there is no indication for admission to the hospital. It is understood, however, that if the symptoms persist or worsen the patient needs to return immediately for re-evaluation. ED course: Discussed x-ray results with patient. On re-evaluation patient symptoms improved, patient is a/o x4, nad, non-toxic, ambulatory in ED, speaking full sentences. Patient to follow up with his PMD in 2-3 days. All questions answered. Return precautions discussed to include worsening symptoms or any other concerns.. 10/27 07:21 Order name: Lumbar Spine (3 Views) XRAY; Complete Time: 09:58 ms3 Administered Medications: 07:28 Drug: Warren PO 5 mg-325 mg 1 tabs PO once Route: PO; ko1 07:58 Follow up: Response: No adverse reaction; Pain is decreased ko1 07:28 Drug: Diazepam PO 5 mg PO once Route: PO; ko1 07:58 Follow up: Response: No adverse reaction; Pain is decreased ko1 Disposition Summary: 10/28/23 10:04 Discharge Ordered Notes: Location: Home ms3 Condition: Stable ms3 Diagnosis - Low back pain ms3 Followup: ms3 - With: Fabio Saavedra DO - When: 2 - 3 days - Reason: Recheck today's complaints Discharge Instructions: - Discharge Summary Sheet ms3 - Acute Back Pain, Adult ms3 Forms: - Medication Reconciliation Form ms3 - Thank You Letter ms3 - Antibiotic Education ms3 - Prescription Opioid Use ms3 - Patient Portal Instructions ms3 - Leadership Thank You Letter ms3 Prescriptions: - Skelaxin 800 mg Oral Tablet - take 1 tablet ORAL route every 8 hours As needed; 30 tablet; Refills: 0, ms3 Product Selection Permitted Signatures: Dispatcher [employer] EDMD Marianna Becerra RN RN aa5 Otis Crain DO DO ms3 Renetta Crain RN RN ld1 Paula Plummer RN RN ko1 Corrections: (The following items were deleted from the chart) 07:15 07:08 PMHx: borderline HTN; ld1 aa5
[2023-10-28 10:39] VITALS: BP 125/84; TEMP 97.9; O2SAT 99
== END 2023-10-28 10:14 | disposition home or self-care (01) ==
LOC: ER 06:56
DX: M54.50 Low back pain, unspecified (principal); Z85.528 Personal history of other malignant neoplasm of kidney; F17.220 Nicotine dependence, chewing tobacco, uncomplicated; Z88.8 Allergy status to other drugs, medicaments and biological substances
CPT/HCPCS: 72100; 99284

== ENCOUNTER 2024-03-09 10:58 | Emergency (ER) | payer BC ==
--- OUTSIDE RECORDS SUMMARY | 2024-03-09 11:00 | XMS REPORT | Continuity of Care Document ---
Author Name Unknown Address [address] [facility] [address] [place] [address] [facility] thconnect Address [address] [facility] [address] [place] [address] Care Team Providers Care Founder And Chief Executive Officer Name Role Phone ELVIS WHEAT Primary Care Physician Unav ailable ROUSE_F Attending Clinician Unavailable PERCY GARRETT Attending Clinician Unavailable Percy Canchola Attending Clinician Loraine Espinoza X Attending Clinician Alexa vailable ROUSE_F Admitting Clinician Unavailable PERCY GARRETT Admitting Clinician Unavailable Physician, No Primary or Family Admitting Clinic kady Unavailable Payers Payer Name Policy Type Policy Number Effective Date Expirati on Date Source [place] [id number] 2023 00:00:00 [employer] [facility] 6 [id number] [facility] [id number] 2017 00:00:00 Problems Condition Name Condition Details Condition Category Status Onset Date Resolution Date Last Treatment Date Treating Clinician Comments Source Seasonal allergy Seasonal Allergy Problem Active 08-01 00:00: 00 [facility] Gastroesop hageal reflux disease Gastroesop hageal Reflux Disease Problem Active 08-01 00:00: 00 [facility] History of migraine History of Migraine Problem Active 08-01 00:00: 00 [facility] Neoplasm of right kidney Neoplasm of Right Kidney Problem Active 08-01 00:00: 00 [facility] Single functional kidney Single Functional Kidney Problem Active 08-01 00:00: 00 [facility] Hypothyroi dism Hypothyroi dism Problem Active 08-01 00:00: 00 [facility] Hyperchole sterolemia Hyperchole sterolemia Problem Active 08-01 00:00: 00 [facility] Mixed anxiety and depressive disorder Mixed Anxiety and Depressive Disorder Problem Active 08-01 00:00: 00 [facility] Hypertensi ve disorder Hypertensi ve Disorder Problem Active 08-01 00:00: 00 [facility] [id number] Chromophob e renal cell carcinoma Problem [facility] Disorder of kidney and/or ureter Renal mass, right Problem [facility] [id number] Hypogonadi sm in male Problem [facility] [id number] Right upper quadrant pain Problem [facility] Premature ejaculatio n Premature ejaculatio n Problem [facility] [id number] S/P laparoscop ic surgery Problem [facility] [id number] Renal cell carcinoma of right kidney Problem [facility] [id number] Erectile dysfunctio n, unspecifie d erectile dysfunctio n type Problem [facility] [id number] Hypertensi ve emergency Problem [facility] Renal mass Renal mass Problem [facility] [id number] S/p nephrectom y Problem [facility] Allergies, Adverse Reactions, Alerts Allergy Name Allergy Type Status Severity Reaction(s) Onset Date Inactive Date Treating Clinician Comments Source No Known Allergie s DA Active U 02-22 00:00: 00 [facility] No Known Allergie s DA Active U 02-22 00:00: 00 [facility] NO KNOWN ALLERGIE S Drug Class Active [facility] Social History Social Habit Start Date Stop Date Quantity Comments Source History of Tobacco Use [facility] Exposure to SARS-CoV-2 (event) 2022-09-14 00:00:00 2022-09-24 16:00:00 Not sure [facility] Tobacco use and exposure 2021-01-30 00:00:00 2021-01-30 00:00:00 User of smokeless tobacco [facility] Sex Assigned At 1970 00:00:00 1970 00:00:00 [facility] Smoking Status Start Date Stop Date Source Never Smoker [facility] Medications Ordered Medication Name Filled Medication Name Start Date Stop Date Current Medication? Ordering Clinician Indication Dosage Frequency Signature (SIG) Comments Components Source cloNIDine (CATAPRES) tablet 0.1 mg 09-24 20:45: 00 09-24 20:57 :00 No .1mg 0.1 mg, Oral, ONCE, 1 dose, On Sat09/24/22 at 1545, STAT [facility] Losartan Potassium 100 MG Losartan Potassium 100 [...] No 1{table t} QD Mobic 15 MG aspirin 81 mg chewable tablet Chew 1 tablet every day by oral route. aspirin 81 mg chewable tablet Chew 1 tablet every day by oral route. No 1 Q1D aspirin 81 mg chewable tablet Chew 1 tablet every day by oral route. [facility] Levothyroxi ne Sodium 75 MCG Levothyroxi ne Sodium 75 MCG No QD Levothyrox ine Sodium 75 MCG Cialis 10 MG Cialis 10 MG No 1{table t_as_ne eded} Cialis 10 MG Singulair 10 MG Singulair 10 MG [...] No QD Levothyrox ine Sodium 75 MCG carvedilol 25 mg tablet TAKE ONE (1) TABLET(S) BY MOUTH TWICE A DAY WITH FOOD. carvedilol 25 mg tablet TAKE ONE (1) TABLET(S) BY MOUTH TWICE A DAY WITH FOOD. No carvedilol 25 mg tablet TAKE ONE (1) TABLET(S) BY MOUTH TWICE A DAY WITH FOOD. [facility] Cialis 10 MG Cialis 10 MG No [...] 1{table t_with_ food} BID Carvedilol 25 MG levothyroxi ne 75 mcg tablet TAKE ONE (1) TABLET(S) BY MOUTH ONCE A DAY IN THE MORNING. levothyroxi ne 75 mcg tablet TAKE ONE (1) TABLET(S) BY MOUTH ONCE A DAY IN THE MORNING. No levothyrox ine 75 mcg tablet TAKE ONE (1) TABLET(S) BY MOUTH ONCE A DAY IN THE MORNING. [facility] Singulair 10 MG Singulair 10 MG No 1{table t} QD Singulair 10 MG losartan 100 mg tablet TAKE ONE (1) TABLET(S) BY MOUTH ONCE A DAY. losartan 100 mg tablet TAKE ONE (1) TABLET(S) BY MOUTH ONCE A DAY. No losartan 100 mg tablet TAKE ONE (1) TABLET(S) BY MOUTH ONCE A DAY. [facility] montelukast 10 mg tablet TAKE ONE (1) TABLET(S) BY MOUTH EVERY MORNING. montelukast 10 mg tablet TAKE ONE (1) TABLET(S) BY MOUTH EVERY MORNING. No montelukas t 10 mg tablet TAKE ONE (1) TABLET(S) BY MOUTH EVERY MORNING. [facility] pantoprazol e 40 mg tablet,naima yed release TAKE ONE (1) TABLET(S) BY MOUTH EVERY MORNING. pantoprazol e 40 mg tablet,naima yed release TAKE ONE (1) TABLET(S) BY MOUTH EVERY MORNING. No pantoprazo le 40 mg tablet,del ayed release TAKE ONE (1) TABLET(S) BY MOUTH EVERY MORNING. [facility] sertraline 50 mg tablet TAKE ONE (1) TABLET(S) BY MOUTH AT BEDTIME. sertraline 50 mg tablet TAKE ONE (1) TABLET(S) BY MOUTH AT BEDTIME. No sertraline 50 mg tablet TAKE ONE (1) TABLET(S) BY MOUTH AT BEDTIME. [facility] Vital Signs Vital Name Observation Time Observation Value Comments S ource BP Diastolic 2023-08-01 00:00:00 84 mm[Hg] [facility] BP Systolic 2023-08-01 00:00:00 124 mm[Hg] [facility] height 2023-02-20 15:45:00 74 [in_i] [facility] weight 2023-02-20 15:45:00 273.4 [lb_av] [facility] temperature 2023-02-20 15:45:00 98.7 [degF] [facility] bmi 2023-02-20 15:45:00 35.1 kg/m2 [facility] oximetry 2023-02-20 15:45:00 98.7 % [facility] respiratory rate 2023-02-20 15:45:00 18 /min [facility] blood pressure systolic 2023-02-20 15:45:00 129 mm[Hg] [facility] blood pressure diastolic 2023-02-20 15:45:00 76 mm[Hg] [facility] height 2022-10-04 14:15:00 74 [in_i] [facility] weight 2022-10-04 14:15:00 280 [lb_av] [facility] temperature 2022-10-04 14:15:00 98 [degF] [facility] bmi 2022-10-04 14:15:00 35.95 kg/m2 [facility] oximetry 2022-10-04 14:15:00 97 % [facility] respiratory rate 2022-10-04 14:15:00 18 /min [facility] blood pressure systolic 2022-10-04 14:15:00 164 mm[Hg] [facility] blood pressure diastolic 2022-10-04 14:15:00 90 mm[Hg] [facility] Systolic blood pressure 2022-09-24 21:00:00 153 mm[Hg] [facility] Diastolic blood pressure 2022-09-24 21:00:00 98 mm[Hg] [facility] Heart rate 2022-09-24 21:00:00 77 /min [facility] Respiratory rate 2022-09-24 21:00:00 18 /min [facility] Oxygen saturation in Arterial blood by Pulse oximetry 2022-09-24 21:00:00 95 /min [facility] Body temperature 2022-09-24 19:43:00 37 Tamie [facility] Body weight 2022-09-24 19:43:00 125.646 kg [facility] BMI 2022-09-24 19:43:00 33.72 kg/m2 [facility] height 2022-07-04 09:00:00 74 [in_i] [facility] weight 2022-07-04 09:00:00 270 [lb_av] [facility] temperature 2022-07-04 09:00:00 97.9 [degF] [facility] bmi 2022-07-04 09:00:00 34.66 kg/m2 [facility] oximetry 2022-07-04 09:00:00 97 % [facility] blood pressure systolic 2022-07-04 09:00:00 142 mm[Hg] [facility] blood pressure diastolic 2022-07-04 09:00:00 86 mm[Hg] [facility] height 2021-12-13 09:15:00 74 [in_i] [facility] weight 2021-12-13 09:15:00 278.8 [lb_av] [facility] temperature 2021-12-13 09:15:00 98.5 [degF] [facility] bmi 2021-12-13 09:15:00 35.79 kg/m2 [facility] oximetry 2021-12-13 09:15:00 99 % [facility] respiratory rate 2021-12-13 09:15:00 16 /min [facility] blood pressure systolic 2021-12-13 09:15:00 136 mm[Hg] [facility] blood pressure diastolic 2021-12-13 09:15:00 88 mm[Hg] [facility] Procedures Procedure Date / Time Performed Performing Clinician Source PVR 2023-02-20 00:00:00 [facility] XR CHEST 1 VW 2022-09-24 20:36:11 [facility] TROPONIN I 2022-09-24 20:10:00 Percy Garrett [facility] COMP. METABOLIC PANEL (04724) 2022-09-24 20:10:00 Percy Garrett [facility] CBC WITH DIFF 2022-09-24 20:10:00 [facility] NOTICE OF PRIVACY PRACTICES 2022-09-24 19:39:29 Doctor Unassigned, [place] [facility] Cholecystectomy [facility] Total Excision of Right Kidney [facility] Plan of Care Planned Activity Planned Date Details Comments Source Diagnostic Test Pending 2023-08-01 00:00:00 CMP, serum or plasma [code = CMP, serum or plasma] [facility] Diagnostic Test Pending 2023-08-01 00:00:00 TSH + free T4, serum [code = TSH + free T4, serum] [facility] Instructions [facility] Encounters Start Date/Time End Date/Time Encounter Type Admission Type Attending [facility] Care Facility Care Department Encounter ID Source 2024-01-03 14:38:00 Outpatient [facility] [id number] [facility] 2021-12-13 09:02:03 [facility]patient [facility] [id number] [facility] 2023-08-01 00:00:00 2023-08-01 00:00:00 Outpatient ROUSE_F [facility] [id number] [facility] 2023-08-01 00:00:00 2023-08-01 00:00:00 Jamel Goodson, TOLL COLLECTOR SUPERVISOR-C: [address], [place] [address] , Ph. [phone] [facility] CLINIC, DR. HENS[facility] [id number] [facility] 2023-07-29 00:00:00 2023-07-29 00:00:00 Outpatient ROUSE_F [facility] [id number] [facility] 2023-07-22 00:00:00 2023-07-22 00:00:00 (TEL) [facility] [id number] [facility] 2023-02-20 00:00:00 2023-02-20 00:00:00 OFFICE VISIT ESTAB PT LEVEL 3 [facility]LC [facility] [id number] [facility] 2022-10-04 00:00:00 2022-10-04 00:00:00 OFFICE VISIT ESTAB PT LEVEL 4 [facility] [id number] [facility] 2022-09-24 14:44:00 2022-09-24 17:38:00 Emergency X PERCY GARRETT [facility] ERT [id number] [facility] 2022-09-24 14:44:00 2022-09-24 17:38:00 Emergency Percy Garrett [facility] [id number] [facility] 2022-07-04 00:00:00 2022-07-04 00:00:00 OFFICE VISIT EST PT LEVEL 3 STLMLC [facility] [id number] [facility] 2021-12-13 00:00:00 2021-12-13 00:00:00 OFFICE VISIT ESTAB PT LEVEL 5 STLMLC ST[facility] [id number] [facility] 2021-02-23 05:20:00 2021-02-23 05:20:00 Inpatient Loraine Kaplan [facility] DAYS [id number] [facility] Results Test Description Test Time Test Comments Results Result Co mments Source [facility] (70730)2022-09-24 20:36:11* Test Item Value Reference Range Interpretation Comme nts NA (test code = 1747488024) 142 mmol/L 135-145 K (test code = 0165093525) 4.5 mmol/L 3.5-5.0 CL (test code = 8101884185) 106 mmol/L 98-108 CO2 TOTAL (test code = 6789917206) 27 mmol/L 23-31 AGAP (test code = 6255211144) 9 2-16 BUN (test code = 9849595356) 17 mg/dL 7-23 GLUCOSE (test code = 9228404819) 110 mg/dL 70-110 CREATININE (test code = 2673527671) 1.48 mg/dL 0.60-1.25 H TOTAL BILI (test code = 6325981531) 0.6 mg/dL 0.1-1.1 CALCIUM (test code = 2478244825) 8.9 mg/dL 8.6-10.6 T PROTEIN (test code = 3218524832) 7.6 g/dL 6.3-8.2 ALBUMIN (test code = 8342403450) 4.1 g/dL 3.5-5.0 ALK PHOS (test code = 5437738324) 110 U/L 34-122 ALTv (test code = 1742-6) 30 U/L 5-50 AST(SGOT) (test code = 1127491206) 22 U/L 13-40 eGFR (test code = 3246062237) 49.9 mL/min/1.73m2 JAYLA (test code = JAYLA) [...] imaging tests). Lab Interpretation (test code = 51082-1) Abnormal [facility] WITH [id number] 20:30:50* Test Item Value Reference Range Interpretation Comme nts WBC (test code = 6690-2) 5.91 See_Comment [Automated messa ge] The system which generated this result transmitted reference range: 4.20 - 10.70 10*3/?L. The reference range was not used to interpret this result as normal/abnormal. RBC (test code = 789-8) 5.01 See_Comment [Automated [employer] ge] The system which generated this result [...] 33.2 g/dL 31.2-35.0 RDW-SD (test code = 23899-5) 41.8 fL 38.5-51.6 RDW-CV (test code = 788-0) 12.8 % 12.1-15.4 PLT (test code = 777-3) 225 See_Comment [Automated [employer]] The system which generated this result transmitted reference range: 150 - 328 10*3/?L. The reference range was not used to interpret this result as normal/abnormal. MPV (test code = 26947-1) 10.2 fL 9.8-13.0 NRBC/100 WBC (test code = 2560520743) 0.0 See_Comment [Automated Finance[employer] ssage] The system which generated this result transmitted reference range: 0.0 - 10.0 /100 WBCs. The reference range was not used to interpret this result as normal/abnormal. NRBC x10^3 (test code = 6675135338) See_Comment [Automated [employer] ssage] The system which generated this result transmitted reference range: 10*3/?L. The reference range was not used to interpret this result as normal/abnormal. GRAN MAT (NEUT) % (test code = 770-8) 58.4 % IMM GRAN % (test code = 5703884694) 0.50 % LYMPH % (test code = 736-9) 25.5 % MONO % (test code = 5905-5) 7.8 % EOS % (test code = 713-8) 7.1 % BASO % (test code = 706-2) 0.7 % GRAN MAT x10^3(ANC) (test code = 4364947131) 3.45 10*3/uL 1.99-6.95 IMM GRAN x10^3 (test code = 7079618886) 0.03 10*3/uL 0.00-0.06 LYMPH x10^3 (test code = 731-0) 1.51 10*3/uL 1.09-3.23 MONO x10^3 (test code = 742-7) 0.46 10*3/uL 0.36-1.02 EOS x10^3 (test code = 711-2) 0.42 10*3/uL 0.06-0.53 BASO x10^3 (test code = 704-7) 0.04 10*3/uL 0.01-0.09 [facility] [id number] 14:48:00* Test Item Value Reference Range Interpretation Comme nts SURGICAL PATH SPECIMENS (test code = S) RUN DATE: 02/27/21 [place] [facility] PAGE 1 RUN TIME: 1448 Specimen Inquiry RUN USER: INTERFACE MARSHALL ENT: ASHLEY MCGHEE #: [id number] LOC: [place] Mike #: [id number] AGE/SX: 50/M ROOM: RE02/23/21REG DR: Loraine Espinoza : 70 BED: DIS: STATUS: [place] [facility] TLOC: SPEC #: [id number] RECD: 02/24/21 STATUS: [facility] #: [id number] MARGARITA: 02/23/21- SUBM DR: Loraine Espinoza MD ENTERED: 02/24/21 SP TYPE: SURG SPEC OTHR DR: No Primary or Family PhysicianORDERED: L4 21149 CODES: [id number] - RECTUM, NOS COPIES TO: No Primary or Family Physician Loraine Espinoza MD [address] [place] [address] [address] [place] [address] [email or web address] PROCEDURES: L4 26052 (02/24/21) TISSUES: RECTUM, NOS - POLYP FINAL [...] 02/27/21 1448 END OF REPORT BASIC METABOLIC [id number] 12:38:00* Test Item Value Reference Range Interpretation [...] mg/dL 8.0-10.5 N COVID 19 Asymptomatic IH [id number] 15:53:00* Test Item Value Reference Range Interpretation [...] perform moderate, high or waivedcomplexity tests. PROTHROMBIN [id number] 15:34:00* Test Item Value Reference Range Interpretation [...] Infarction (to prevent recurrent infarct). THROMBOPLASTIN TIME [id number] 15:34:00* Test Item Value Reference Range Interpretation Comme nts THROMBOPLASTIN TIME PARTIAL (test code = PTT) 33.0 Seconds 25.0-39.5 N Therapeutic Rang e: 50.4 - 88.3 Seconds Effective 10/21/2018 BASIC METABOLIC [id number] 15:30:00* Test Item Value Reference Range Interpretation [...] CA) 9.2 mg/dL 8.0-10.5 N CBC W/AUTO [id number] 15:20:00* Test Item Value Reference Range Interpretation [...] = MDIFF) NO - XR CHEST 2 [id number] 00:00:00 [facility] 1970 Sex: MFAX: Telma Mendoza [phone] [place]: St: PRE FAX: Glory Coker [phone] Name: ASHLEY MCGHEE [facility] : 1970 Age/S: 50/M [address] [place] [address] Unit #: [id number] Loc: [place] [address] Phys: Telma Giron MD Acct: [id number] Dis Date: Status: PRE [facility] PHONE #: [phone] Exam Date: 02/22/2021 1509 FAX #: [phone] Reason: PREOP EXAMS: CPT CODE: [id number] XR CHEST 2 V 06978 PROCEDURE INFORMATION: Exam: XR Chest Exam date [...] Technologist: Renetta Rutledge RT(R) Trnscrd Date/Time/By: 02/22/2021 (1532) : By: [email or web address] [facility] Print D/T: S: 02/22/2021 (153) PAGE 1 Signed Report Notes Date/Time Note Provider Source 2021-02-23 14:22:00 [id number] [place] [address] PATIENT NAME: ASHLEY MCGHEE ADMIT DATE: 02/23/21 ACCOUNT NO: [id number] ROOM NO: AGE: 50 REPORT TYPE: OPERATIVE REPORT SEX: M ADMITTING PHYSICIAN: ATTENDING PHYSICIAN:Loraine Espinoza MD OPERATION DATE: 02/23/2021 PREOPERATIVE DIAGNOSES: Rectal polyp and right kidney cancer. POSTOPERATIVE DIAGNOSES: Rectal polyp and right kidney cancer. PROCEDURES: Transanal minimally invasive surgery, full-thickness resection of rectal polyp. SURGEON: Loraine Espinoza MD. LADLER: Nara Vasques. ANESTHESIA: General. INTRAVENOUS FLUIDS: 700 mL. URINE OUTPUT: 100 mL. ESTIMATED BLOOD LOSS: Less than 5 mL. SPECIMEN: Rectal polyp. FINDINGS: Villous polyp of 3 x 3 cm with a narrow base at the left anterolateral rectal wall 12 cm proximal to the dentate line. DISPOSITION: Tolerated the procedure well, extubated in the operating room, and transferred to postanesthesia care unit in stable hemodynamic condition. COUNTS: Needle, sponge, and instrument count correct x2. INDICATIONS FOR PROCEDURE: The patient is a 50-year-old man who has been diagnosed with a nonresectable rectal polyp during colonoscopy. He was also diagnosed at the same time with a right kidney cancer and he is set to undergo surgery next week. He also has a chronic history of thoracic aortic aneurysm and he reports that he has been stable and his electric wirer has been following him and recently reported that he has no increase in the size of his aneurysm. The patient understands his condition; the operative procedure plan; the risk and benefit ratio, and the potential risks for complications including, but not limited to pain, bleeding, infection, damage to surrounding organs and structures, need for further procedures and surgeries, need for further oncological surgeries, and perioperative cardiopulmonary risks. Informed consent was obtained. All questions were answered to [...] placed on the operating table in supine position. General endotracheal anesthesia was induced successfully. Subsequently, he was placed in lithotomy position on candy canes. Perineum was prepped and draped in the usual standard sterile fashion. We performed manual dilation of the anal sphincter. We used a total of 10 mL of 0.25% Marcaine plain for local anesthesia and subsequently we dilated with all sizes of Hill-Mercado retractor and we inserted the GelPOINT path tunneled port and with a dilator and secured with 0 silk ties and the sutures in the perianal skin verge. Through this, we capped with a Gelport and through this, we placed an 8-mm applied AirSeal ConMed port and insufflated to 12 mmHg and we used a LigaSure L-hook device and under direct visualization with a 5-mm 45-degree camera and the scope of bariatric length, we identified the polyp at the 12 cm proximal to the anal verge and using the LigaSure L-hook device, we hemostatically divided the polyp in a full-thickness fashion and off the rectum. We excised the polyp and brought out from the tunnel port after ligating the pneumorectum temporarily. The polyp was submitted to pathology. Subsequently, we recapped the port and reinsufflated pneumoperitoneum and then we used a 2-0 Vicryl on SH and we performed full-thickness approximation of the rectal wall edges with a total of 4 sutures. We used TK knot and approximated the edges by finding the TK knot gun and a hemostatic clip was applied over each suture. The hemostasis was satisfactory. The approximation line was complete. There was no bleeding. There was no fecal spillage. We evacuated the pneumorectum. We removed the Gelport. There was no bleeding. There was no need for dressing. The patient tolerated the procedure well and transferred to postanesthesia care unit in stable hemodynamic condition. IV antibiotics were given preoperatively and the patient will be discharged home on Flagyl. The polyp appeared to have a benign villous appearance. Dictated By: Loraine Espinoza MD WT: OP:BRIDGET/ROSALIND/LEONARDO Conf#: [id number]/DID#: [id number] Authenticated and Edited by Loraine Espinoza MD On 02/24/21 9:06:10 AM at 0907 PATIENT NAME: ASHLEY MCGHEE [facility] 2021-02-22 15:02:00 [place] [id number] PATIENT NAME: ASHLEY MCGHEE ADMIT DATE: ACCOUNT NO: [id number] ROOM NO: AGE: 50 REPORT TYPE: eELECTROCARDIOGRAM REPORT SEX: M ADMITTING PHYSICIAN: ATTENDING PHYSICIAN:Loraine Espinoza MD Order: [id number] Test Reason : PREOP Test Date/Time Stamp: [...] Confirmed by RENETTA MOORE MD ([id number]) on 02/22/2021 3:26:26 PM Referred By: Loraine Espinoza Confirmed by:RENETTA MOORE MD at 6188 PATIENT NAME: ASHLEY MCGHEE [facility]"
--- NOTE | 2024-03-09 12:08 | RAD REPORT ---
EXAM DESCRIPTION: RAD - Chest Pa And Lat (2 Views) - 03/09/2024 12:02 pm CLINICAL HISTORY: Congestion;Cough COMPARISON: Chest Single View dated 12/18/2022; Chest Single View dated 12/06/2022; Chest Pa And Lat (2 Views) dated 07/05/2022; Chest Single View dated 07/27/2019 FINDINGS: Lines: None. Lungs: No evidence of edema or pneumonia. Pleural: No significant pleural effusions or pneumothorax. Cardiac: Mild cardiomegaly . Mediastinum: Within normal limits. Bones: No acute fractures. Other: None IMPRESSION: No acute cardiopulmonary disease.
--- NOTE | 2024-03-09 12:10 | EDPHYS ---
[facility] Name: Gael Vela Age: 53 yrs Sex: Male : 1970 Arrival Date: 03/09/2024 Time: 10:58 Bed 16 Private MD: ED Physician Dima Jacobs HPI: 03/09 11:35 This 53 yrs old Male presents to ER via Ambulatory with complaints of Covid+. sb4 11:35 Patient states he tested positive for COVID about a week ago. He is still feeling very sb4 "achy "he denies any chest pain or shortness of breath. He states his has similar symptoms. He has been taking Coricidin and Tylenol for his symptoms with minimal improvement. Additionally, he states that he has a wound on his knee that intermittently drains, but it has been draining worse since he has been sick with COVID. He denies any known fever. Historical: - Allergies: 11:16 HYDRALAZINE; db - PMHx: 11:16 acid reflux; Hypertension; Renal Cell Carcinoma to right kidney; Thyroid problem; db Headaches; - PSHx: 11:16 Right Kidney Removed; db - Immunization history:: Adult Immunizations unknown. - Infectious Disease History:: Denies. - Social history:: Smoking status: Patient reports use of chewing tobacco. ROS: 11:35 Respiratory: Negative for shortness of breath, cough, wheezing, and pleuritic chest sb4 pain, 11:35 Constitutional: Positive for body aches, fatigue, malaise, 11:35 Skin: Positive for abscess, of the right knee, 11:35 All other systems are negative, Exam: 11:35 Constitutional: This is a well developed, well nourished patient who is awake, alert, sb4 and in no acute distress. Head/Face: Normocephalic, atraumatic. Eyes: Extra-ocular motions intact. Periorbital areas with no swelling, redness, or edema. ENT: Mucous membranes moist. Cardiovascular: Regular rate and rhythm with a normal S1 and S2. Respiratory: Lungs have equal breath sounds bilaterally, clear to auscultation and percussion. No rales, rhonchi or wheezes noted. No increased work of breathing, no retractions or nasal flaring. 11:35 Skin: abscess, that is small, of the right knee, with drainage, that is purulent, with surrounding cellulitis, that is mild, Vital Signs: 11:13 BP 124 / 96; Pulse 63; Resp 18; Pulse Ox 99% ; Weight 127.01 kg; Height 6 ft. 4 in. ; db 12:20 BP 150 / 96; Pulse 61; Resp 17; Temp 97.8(O); Pulse Ox 97% on R/A; tl4 11:13 Body Mass Index 34.08 (127.01 kg, 193.04 cm) db MDM: 11:09 Patient medically screened. sb4 12:09 Data reviewed: vital signs, nurses notes, radiologic studies, and as a result, I will sb4 discharge patient. Counseling: I had a detailed discussion with the patient and/or guardian regarding the historical points, exam findings, and any diagnostic results supporting the discharge/admit diagnosis, radiology results, to return to the emergency department if symptoms worsen or persist or if there are any questions or concerns that arise at home. 03/09 11:31 Order name: Chest Pa And Lat (2 Views) XRAY; Complete Time: 12:09 sb4 Administered Medications: No medications were administered Disposition: 14:13 Co-signature as Attending Physician, Dima Jacobs MD I reviewed the patient's care rt provided by the Advanced Practice Provider and agree with the diagnosis and treatment plan. Disposition Summary: 03/09/24 12:09 Discharge Ordered Notes: Location: Home sb4 Problem: an ongoing problem sb4 Symptoms: have improved sb4 Condition: Stable sb4 Diagnosis - SARS-associated coronavirus as the cause of diseases classified elsewhere sb4 - Cutaneous abscess of right lower limb sb4 Followup: sb4 - With: Emergency Department - When: As needed - Reason: Trouble breathing, Worsening of condition Discharge Instructions: - Discharge Summary Sheet sb4 - Skin Abscess, [id number] sb4 - 10 Things You Can Do to Manage Your COVID-19 Symptoms at Home - [facility] (01/20/2021) sb4 Forms: - Antibiotic Education sb4 - Patient Portal Instructions sb4 - Leadership Thank You Letter sb4 Prescriptions: - Bactrim DS 800-160 mg Oral Tablet - take 1 tablet ORAL route every 12 hours for 10 days; 20 tablet; Refills: 0, sb4 Product Selection Permitted - Prednisone 20 mg Oral Tablet - take 1 tablet ORAL route every 12 hours for 5 days; 10 tablet; Refills: 0, sb4 Product Selection Permitted Signatures: Dispatcher [employer] Allison Kiran, RN RN Samantha Bryan PA-C PASumit sb4 Dima Jacobs MD MD rt
--- NOTE | 2024-03-09 12:10 | ER ---
Nurse's Notes [facility] Name: Gael Vela Age: 53 yrs Sex: Male : 1970 Arrival Date: 03/09/2024 Time: 10:58 Bed 16 Private MD: Diagnosis: SARS-associated coronavirus as the cause of diseases classified elsewhere;Cutaneous abscess of right lower limb Presentation: 03/09 11:13 Chief complaint: Patient states: COUGH AND CONGESTION X 1 WEEK. +COVID TEST ON SATURDAY. db STATES ACHY AND NOT GETTING BETTER. "CYST" ON RIGHT KNEE HAS BEEN LEAKING FLUID. NOTED RED AND RAISED CONCERNED ABOUT A "STAPH" INFECTION. Coronavirus screen: Client denies travel out of the [place] in the last 14 days. At this time, the client does not indicate any symptoms associated with coronavirus-19. Ebola Screen: Patient negative for fever greater than or equal to 101.5 degrees Fahrenheit, and additional compatible Ebola Virus Disease symptoms Patient denies exposure to infectious person. Patient denies travel to an Ebola-affected area in the 21 days before illness onset. No symptoms or risks identified at this time. Initial Sepsis Screen: Does the patient meet any 2 criteria? No. Patient's initial sepsis screen is negative. Does the patient have a suspected source of infection? No. Patient's initial sepsis screen is negative. Risk Assessment: Do you want to hurt yourself or someone else? Patient reports no desire to harm self or others. Onset of symptoms was March 09, 2024. 11:13 Method Of Arrival: Ambulatory db 11:13 Acuity: RENEA 4 db Triage Assessment: 11:16 General: Appears in no apparent distress. comfortable, Behavior is calm, cooperative. db Pain: Complains of pain in right KNEE. Neuro: Level of Consciousness is awake, alert, obeys commands, Oriented to person, place, time, situation. Derm: Abscess located on RIGHT KNEE. Historical: - Allergies: 11:16 HYDRALAZINE; db - PMHx: 11:16 acid reflux; Hypertension; Renal Cell Carcinoma to right kidney; Thyroid problem; db Headaches; - PSHx: 11:16 Right Kidney Removed; db - Immunization history:: Adult Immunizations unknown. - Infectious Disease History:: Denies. - Social history:: Smoking status: Patient reports use of chewing tobacco. Screenin:23 [facility] ED Fall Risk Assessment (Adult) History of falling in the last 3 months, tm6 including since admission No falls in past 3 months (0 pts) Confusion or Disorientation No (0 pts) Intoxicated or Sedated No (0 pts) Impaired Gait No (0 pts) Mobility Assist Device Used No (0 pt) Altered Elimination No (0 pt) Score/Fall Risk Level 0 - 2 = Low Risk Oriented to surroundings, Maintained a safe environment, Educated pt \\T\\ family on fall prevention, incl call for assistance when getting out of bed. Abuse screen: Denies threats or abuse. Denies injuries from another. Nutritional screening: No deficits noted. Tuberculosis screening: No symptoms or risk factors identified. Assessment: 11:23 General: Appears in no apparent distress. Behavior is calm, cooperative. Pain: tm6 Complains of pain in left low back and right low back Pain does not radiate. Pain currently is 0 out of 10 on a pain scale. at worst was 5 out of 10 on a pain scale. Quality of pain is described as aching, Aggravated by walking. Neuro: Level of Consciousness is awake, alert, obeys commands, Oriented to person, place, time, situation. Cardiovascular: Patient's skin is warm and dry. Respiratory: Reports shortness of breath cough that is Airway is patent Respiratory effort is even, unlabored, Respiratory pattern is regular, symmetrical. GI: No signs and/or symptoms were reported involving the gastrointestinal system. Abdomen is round. : No signs and/or symptoms were reported regarding the genitourinary system. EENT: Reports nasal congestion. Derm: Abscess located on right knee is nickel sized, has clear drainage, lanced by doctor previously. Musculoskeletal: Reports body aches. Vital Signs: 11:13 BP 124 / 96; Pulse 63; Resp 18; Pulse Ox 99% ; Weight 127.01 kg; Height 6 ft. 4 in. ; db 12:20 BP 150 / 96; Pulse 61; Resp 17; Temp 97.8(O); Pulse Ox 97% on R/A; tl4 11:13 Body Mass Index 34.08 (127.01 kg, 193.04 cm) db ED Course: 11:03 Patient arrived in ED. mr 11:04 Samantha Santillan PA-C is PHCP. sb4 11:04 Dima Jacobs MD is Attending Physician. sb4 11:16 Triage completed. db 11:16 Arm band placed on right wrist. Patient placed in an exam room. db 11:23 Oscar Timmons, RN is Primary Nurse. tm6 11:23 Patient has correct armband on for positive identification. Bed in low position. Call tm6 light in reach. Side rails up X 1. Provided Education on: use of call combs. Client placed on continuous cardiac and pulse oximetry monitoring. NIBP monitoring applied. Pulse ox on. NIBP on. Door closed. Noise minimized. Lights dimmed. 12:04 Chest Pa And Lat (2 Views) XRAY In Process Unspecified. EDMS 12:21 No provider procedures requiring assistance completed. Patient did not have IV access tl4 during this emergency room visit. Administered Medications: No medications were administered Medication: 11:23 VIS not applicable for this client. tm6 Outcome: 12:09 Discharge ordered by . sb4 12:21 Discharged to home ambulatory, tl4 12:21 Condition: stable 12:21 Discharge instructions given to patient, Instructed on discharge instructions, follow up and referral plans. medication usage, Demonstrated understanding of instructions, follow-up care, medications, Prescriptions given X 2, 12:21 Patient left the ED. tl4 Signatures: Dispatcher [employer] EDIA Lashon Aquino, Barber Reg mr Allison Lloyd, RN RN Samantha Bryan, PA-C PA-C sb4 Oscar Timmons, RN RN tm6 Ric French RN RN tl4 Corrections: (The following items were deleted from the chart) 11:17 11:13 Chief complaint: Patient states: COUGH AND CONGESTION X 1 WEEK. +COVID TEST ON db SATURDAY. STATES ACHY AND NOT GETTING BETTER db 11:18 11:13 Pulse 63bpm; Resp 18bpm; Pulse Ox 99%; 127.01 kg; Height 6 ft. 4 in.; BMI: 34.0; db db
[2024-03-09 12:28] VITALS: BP 150/96; TEMP 97.8; O2SAT 97
== END 2024-03-09 12:21 | disposition home or self-care (01) ==
LOC: ER 10:58
DX: U07.1 COVID-19 (principal); L02.415 Cutaneous abscess of right lower limb; F17.220 Nicotine dependence, chewing tobacco, uncomplicated
CPT/HCPCS: 99283